=== PATIENT | male | born 1955 | race Caucasian/White ===

== ENCOUNTER 2017-10-25 14:21 | Outpatient (RCR) | payer MEDICARE ==
[2017-11-10] MEDS ORDERED: SACU1TAB PO (12:13)
[2017-11-10] MEDS ORDERED: UBID100C44 PO (12:13)
[2017-11-10] MEDS ORDERED: TRAM50TA2 PO (12:13)
[2017-11-10] MEDS ORDERED: OMG1KC PO (12:13)
[2017-11-10] MEDS ORDERED: ALLO100T PO (12:13)
[2017-11-10] MEDS ORDERED: NITR0.4T39 SL (12:13)
[2017-11-10] MEDS ORDERED: CARV3.122 PO (12:13)
[2017-11-10] MEDS ORDERED: DIAZ10TA3 PO (12:13)
[2017-11-10] MEDS ORDERED: AMIT150T PO (12:13)
[2017-11-10] MEDS ORDERED: MULT1TAB69 PO (12:13)
[2017-11-10] MEDS ORDERED: SIMV20TA3 PO (12:13)
[2017-11-10] MEDS ORDERED: DOCU100T7 PO (12:13)
[2017-11-10] MEDS ORDERED: CLOP75TA28 PO (12:13)
[2017-11-10] MEDS ORDERED: WARF-48 PO (12:13)
== END 2017-12-04 | disposition home or self-care (01) ==
LOC: ONC 14:21
PROVIDERS: ATTEND Radiology Radiation Oncology
DX: Z08 Encounter for follow-up examination after completed treatment for malignant neoplasm (principal); Z85.528 Personal history of other malignant neoplasm of kidney; Z85.830 Personal history of malignant neoplasm of bone; I25.10 Atherosclerotic heart disease of native coronary artery without angina pectoris; I15.0 Renovascular hypertension; M19.91 Primary osteoarthritis, unspecified site; Z86.718 Personal history of other venous thrombosis and embolism; Z79.01 Long term (current) use of anticoagulants
CPT/HCPCS: 76873; 99214

== ENCOUNTER 2017-11-10 12:31 | Outpatient (CLI) | payer MEDICARE ==
[~2017-11-10] VITALS: Ht 188 cm; Wt 115.2 kg
[~2017-11-10 12:31] MED LIST: ALLO100T PO; AMIT150T PO; CARV3.122 PO; CLOP75TA28 PO; DIAZ10TA3 PO; DOCU100T7 PO; MULT1TAB69 PO; NITR0.4T39 SL; OMG1KC PO; SACU1TAB PO; SIMV20TA3 PO; TRAM50TA2 PO; UBID100C44 PO; WARF-48 PO
== END 2017-11-10 13:53 ==
LOC: PREOP 12:31
PROVIDERS: ATTEND Urology
DX: Z01.818 Encounter for other preprocedural examination (principal); C61 Malignant neoplasm of prostate

== ENCOUNTER 2017-11-17 09:20 | Day surgery (SDC) | payer MEDICARE ==
[~2017-11-17] VITALS: Ht 188 cm; Wt 115.2 kg
[2017-11-17 09:35] VITALS: BP 121/83
[2017-11-17] MEDS ORDERED: LEVOFLOXACIN 500 MG/D5W 100 ML (PRE-MIX) IV ONE (09:45)
[2017-11-17 09:57] LABS: INR 1.1 (0.8-1.4); PROTHROMBIN TIME PATIENT 13.9 SEC (12.2-14.7)
[2017-11-17] MEDS ORDERED: MIDAZOLAM 2 MG/2 ML (VERSED) VIAL IVP ONE (10:15)
[2017-11-17] MEDS ORDERED: LEVOFLOXACIN 500 MG/100 ML IV 100 ML IV ONE (10:15)
[2017-11-17] MEDS ORDERED: MIDAZOLAM 2 MG/2 ML (VERSED) VIAL ONE (11:32)
[2017-11-17] MEDS ORDERED: fentaNYL INJECTION 100 MCG/2 ML AMP ONE (11:32)
--- NOTE | 2017-11-17 12:00 | Progress Note-Pre Operative ---
Pre-Operative Progress Note H&P Reviewed The H&P was reviewed, patient examined and no changes noted. Date Seen by Provider: Nov 17, 2017 Time Seen by Provider: 12:00 Date H&P Reviewed: Nov 17, 2017 Time H&P Reviewed: 12:00 Pre-Operative Diagnosis: Ca Prostate KENDY VERDUGO MD Nov 17, 2017 12:00 pm
--- NOTE | 2017-11-17 12:04 | Discharge Inst-Urology ---
Discharge Inst-Urology Discharge Medications New, Converted, or Re-newed RX: RX on Chart Patient Instructions/Follow Up Plan Patient to come to office Monday 9am to ABY blood Please make appointment to been seen in office in 2 weeks. Showers, no baths keep bowels soft and moving. IN 72 HRS, IF NO BLEEDING, MAY RESUME COUMADIN AND IF NO BLEEDING, 48 HRS LATER MAY RESUME PLAVIX Increase oral fluids for 48 hours and then as needed. Diet and Activity as tolerated. If questions or concerns contact your physician Or seek help at emergency department. KENDY VERDUGO MD Nov 17, 2017 12:04 pm
[2017-11-17] MEDS ORDERED: ONDANSETRON 4 MG/2 ML (SDV) Z0FRAN ONE (13:33)
[2017-11-17] MEDS ORDERED: LIDOCAINE PF 2% 5 ML (XYLOCAINE) VIAL ONE (13:33)
[2017-11-17] MEDS ORDERED: LIDOCAINE JELLY 2% (XYLOCAINE) 5 ML TUBE ONE (13:33)
[2017-11-17] MEDS ORDERED: SEVOFLURANE (ULTANE) 15 ML INHAL SOLN ONE (13:33)
[2017-11-17] MEDS ORDERED: ROCURONIUM 50 MG/5 ML (ZEMURON) VIAL IV ONE (13:33)
[2017-11-17] MEDS ORDERED: proPOfol 200 MG/20 ML (DIPRIVAN) VIAL IV ONE (13:33)
[2017-11-17] MEDS ORDERED: MEPERIDINE (DEMEROL) INJ 50 MG/ML IVP PRN (14:00)
[2017-11-17] MEDS ORDERED: ONDANSETRON 4 MG/2 ML (SDV) Z0FRAN IVP PRN (14:00)
[2017-11-17] MEDS: morphine INJ 10 MG/ML 1ML (SYR OR VIAL) IVP PRN ×2 (14:08→14:13)
[2017-11-17 14:50] VITALS: BP 120/77
[2017-11-17 14:51] VITALS: BP 120/77
[2017-11-17 15:20] VITALS: BP 113/75
[2017-11-17 16:00] VITALS: BP 111/74
--- NOTE | 2017-11-17 17:56 | Diagnostic Imaging Report ---
INDICATION: Brachytherapy. FINDINGS: A total of 18 seconds of fluoroscopy was utilized during brachytherapy performance. IMPRESSION: 18 seconds fluoroscopy utilized. Dictated by: Dictated on workstation # [id number]
== END 2017-11-17 17:20 | disposition home or self-care (01) ==
LOC: SDC 09:20
PROVIDERS: ATTEND Urology
DX: C61 Malignant neoplasm of prostate (principal); I25.10 Atherosclerotic heart disease of native coronary artery without angina pectoris; I11.0 Hypertensive heart disease with heart failure; I50.9 Heart failure, unspecified; M19.91 Primary osteoarthritis, unspecified site; E78.00 Pure hypercholesterolemia, unspecified; I25.2 Old myocardial infarction; Z86.718 Personal history of other venous thrombosis and embolism; Z79.01 Long term (current) use of anticoagulants; Z79.02 Long term (current) use of antithrombotics/antiplatelets; Z85.528 Personal history of other malignant neoplasm of kidney; Z95.5 Presence of coronary angioplasty implant and graft; Z87.891 Personal history of nicotine dependence
CPT/HCPCS: 36415; 76965; 77290; 77318; 77332; 77336; 77470; 77778; 85610; 87081

== ENCOUNTER 2017-12-15 10:10 | Outpatient (RCR) | payer MEDICARE | END 2018-03-15 | disposition home or self-care (01) | LOC: ONC 10:10 | PROVIDERS: ATTEND Radiology Radiation Oncology | DX: Z51.0 Encounter for antineoplastic radiation therapy (principal); C61 Malignant neoplasm of prostate; Z85.528 Personal history of other malignant neoplasm of kidney; Z85.830 Personal history of malignant neoplasm of bone; I25.10 Atherosclerotic heart disease of native coronary artery without angina pectoris; I15.0 Renovascular hypertension; M19.91 Primary osteoarthritis, unspecified site; Z86.718 Personal history of other venous thrombosis and embolism; Z79.01 Long term (current) use of anticoagulants | CPT/HCPCS: 77290; 77295; 77336 ==

== ENCOUNTER 2018-05-22 14:22 | Outpatient (RCR) | payer MEDICARE | END 2018-06-05 | disposition home or self-care (01) | LOC: ONC 14:22 | PROVIDERS: ATTEND Radiology Radiation Oncology | DX: C61 Malignant neoplasm of prostate (principal); Z85.528 Personal history of other malignant neoplasm of kidney; Z85.830 Personal history of malignant neoplasm of bone; I25.10 Atherosclerotic heart disease of native coronary artery without angina pectoris; I15.0 Renovascular hypertension; M19.91 Primary osteoarthritis, unspecified site; Z86.718 Personal history of other venous thrombosis and embolism; Z79.01 Long term (current) use of anticoagulants | CPT/HCPCS: 36415; 84153; 99213 ==

== ENCOUNTER → 2019-07-30 | Outpatient (CLI) | payer MEDICARE, OTHER ==
--- NOTE | 2019-07-30 12:51 | Diagnostic Imaging Report ---
INDICATION: Instability. Previous injury. COMPARISON: None. FINDINGS: Multiple radiographic views of the left knee were obtained. Postsurgical changes of the distal femur and proximal tibia are identified. Orthopedic sideplate and screws are seen traversing the lateral margins of the distal femur. Intramedullary vivien is also seen within the proximal tibia. Note is made of the proximal end of the vivien as well as the proximal anchor screw appear to have potentially migrated medially with portion of the screw extending into the medial soft tissues. There is gross deformity of the distal femur and proximal tibia and fibula consistent with old healed fractures. There is some soft tissue calcification, which may perhaps be on the basis of prior myositis ossificans. There is no convincing evidence of acute fracture. Note is made of hyperextended appearance of the knee joint with standing on the lateral view. Joint spaces are otherwise maintained. IMPRESSION: 1. Abnormal hyperflexed appearance to the knee on the lateral view with standing positioning. Findings are suspicious for underlying soft tissue injury. 2. Gross deformity of the left knee consistent with old fractures as well as postsurgical changes of prior ORIF. 3. No convincing evidence of acute fracture. Dictated by: Dictated on workstation # [id number]
== END ==
LOC: RAD FS 10:58
PROVIDERS: ATTEND Nurse Practitioner
DX: M17.12 Unilateral primary osteoarthritis, left knee (principal); M21.962 Unspecified acquired deformity of left lower leg
CPT/HCPCS: 73562

== ENCOUNTER 2020-06-14 11:06 | Inpatient (IN) | payer MEDICARE, OTHER ==
[~2020-06-14] VITALS: Ht 185.5 cm; Wt 104.1 kg
[~2020-06-14 11:06] MED LIST changes: +MULT-567 PO; -MULT1TAB69 PO; -SACU1TAB PO; +SACU1TAB2 PO; +SIMV20TA26 PO; -SIMV20TA3 PO; -TRAM50TA2 PO; +TRM50T PO
--- NOTE | 2020-06-14 11:28 | ED General ---
General Stated Complaint: BLOODY STOOL Source of Information: Patient, Old Records, RN/MD Exam Limitations: No Limitations History of Present Illness Date Seen by Provider: Jun 14, 2020 Time Seen by Provider: 11:05 Initial Comments This patient is a 64-year-old male presents to the emergency department with complaint of GI bleed. Patient states she's had black tarry stools for about 1 week. Patient was seen by his PCP had normal lab values. Patient does take Coumadin home and states that he doesn't INR check on his home hand-held device weekly in 5 days ago his Coumadin INR level was 2.4. Patient states he is continue to take his medications. Patient states of black tarry stool has increased but he has no complaints of lightheadedness or shortness of breath or any signs of low blood pressure. Blood pressure on arrival was 143 systolic. Patient does have a remote history of renal cell carcinoma for which he had his left kidney removed. 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 Patient does walk with a brace on his left leg and crutches. Patient also states he does have a history of state issues to where he had pellets placed in his prostate. We will do medical evaluation treatment is needed. Timing/Duration: 5-6 Days Severity: Moderate Allergies and Home Medications Allergies Coded Allergies: No Known Drug Allergies (Unverified , 11/10/17) Home Medications Allopurinol 100 Mg Tablet, 100 MG PO DAILY, (Reported) Amitriptyline HCl 150 Mg Tablet, 150 MG PO HS, (Reported) Carvedilol 3.125 Mg Tablet, 3.125 MG PO BID, (Reported) Diazepam 10 Mg Tablet, 10 MG PO HS, (Reported) Docusate Sodium 100 Mg Tablet, 100 MG PO BID, (Reported) Multivitamin 1 Each Tablet, 1 EACH PO DAILY, (Reported) Nitroglycerin 0.4 Mg Tab.subl, 0.4 MG SL UD PRN for CHEST PAIN, (Reported) [place] 3 Polyunsat Fatty Acids 1,000 Mg Cap, 1,000 MG PO BID, (Reported) Sacubitril/Valsartan 1 Each Tablet, 1 EACH PO BID, (Reported) Simvastatin 20 Mg Tablet, 20 MG PO HS, (Reported) Tramadol HCl 50 Mg Tablet, 50 MG PO TID PRN for PAIN-MILD TO MODERATE, (Reported) Ubidecarenone 100 Mg Capsule, 100 MG PO DAILY@1200, (Reported) Patient Home Medication List Home Medication List Reviewed: Yes Review of Systems Review of Systems Constitutional: see HPI Respiratory: No no symptoms reported, No see HPI, No cough, No dyspnea on exertion, No hemoptysis, No orthopnea, No phlegm, No short of breath, No strid or, No wheezing, No other Cardiovascular: No no symptoms reported, No see HPI, No chest pain, No edema, No Hx of Intervention, No palpitations, No syncope, No vascular heart diseas, No other Gastrointestinal: No RUQ, No LUQ, No RLQ, No LLQ, No no symptoms reported; see HPI; No abdominal pain, No constipation, No diarrhea, No dysphagia, No hematemesis, No heartburn, No jaundice, No loss of appetite; melena; No nausea, No vomiting; other (black tarry stools) Genitourinary: No no symptoms reported, No see HPI, No decreased output, No discharge, No dysuria, No frequency, No hematuria, No hesitancy, No incontinence, No nocturia, No pain, No other Musculoskeletal: No no symptoms reported, No see HPI, No back pain, No gout, No joint pain, No joint swelling, No muscle pain, No muscle stiffness, No muscle cramps, No muscle twitching, No muscle weakness, No neck pain, No other Skin: No no symptoms reported, No see HPI, No change in color, No change in hair/nails, No dryness, No hx of skin cancer, No lesions, No lumps, No pruritus, No rash, No other All Other Systems Reviewed Negative Unless Noted: Yes Past Txyieuc-Xgiyqx-Mqfdba Hx Patient Social History Alcohol Beverage of Choice: Beer Former Smoker, Quit: Nov 10, 1998 Recent Foreign Travel: No Contact w/Someone Who Travel: No Recent Hopitalizations: No Immunizations Up To Date Tetanus Booster (TDap): Unknown PED Vaccines UTD: No Date of Influenza Vaccine: Aug 30, 2017 Seasonal Allergies Seasonal Allergies: No Past Medical History Coronary Stent Coronary Artery Disease, High Cholesterol, Hypertension Reproductive Disorders: No Prostate Problems Polyps Arthritis, Fractures Prostate, Kidney What Type of Treatment Did You: Surgical Intervention Physical Exam Vital Signs Vital Signs - First Documented 06/14/20 11:10 Temp 36.9 Pulse 122 Resp 18 B/P (MAP) 143/88 (106) Pulse Ox 98 O2 Delivery Room Air Capillary Refill : Height, Weight, BMI Height: 6'2.00" Weight: 254lbs. 0.0oz. 115.375227xt; 32.6 BMI Method: General Appearance: No Apparent Distress, WD/WN Respiratory: Chest Non Tender, Lungs Clear, Normal Breath Sounds, No Accessory Muscle Use, No Respiratory Distress Cardiovascular: Regular Rate, Rhythm, No Edema, No Gallop, No JVD, No Murmur, Normal Peripheral Pulses Gastrointestinal: Normal Bowel Sounds, No Organomegaly, No Pulsatile Mass, Non Tender, Soft Rectal: Black Stool, Heme Positive Stool Back: Normal Inspection, No CVA Tenderness, No Vertebral Tenderness Extremity: Normal Capillary Refill, Normal Inspection, Normal Range of Motion, Non Tender, No Calf Tenderness, No Pedal Edema Skin: Normal Color, Warm/Dry Progress/Results/Core Measures Suspected Sepsis SIRS Temperature: Pulse: Respiratory Rate: Laboratory Tests 06/14/20 11:30: White Blood Count 9.2 Blood Pressure / Mean: Laboratory Tests 06/14/20 11:30: Creatinine 0.99, INR Comment 4.2H, Platelet Count 199, Total Bilirubin 0.2 Results/Orders Lab Results Laboratory Tests Test 06/14/20 11:30 06/14/20 11:46 Range/Units White Blood Count 9.2 4.3-11.0 10^3/uL Red Blood Count 3.56 L 4.35-5.85 10^6/uL Hemoglobin 10.7 L 13.3-17.7 G/DL Hematocrit 31 L 40-54 % Mean Corpuscular Volume 88 80-99 FL Mean Corpuscular Hemoglobin 30 25-34 PG Mean Corpuscular Hemoglobin Concent 34 32-36 G/DL Red Cell Distribution Width 14.7 H 10.0-14.5 % Platelet Count 199 130-400 10^3/uL Mean Platelet Volume 9.5 7.4-10.4 FL Neutrophils (%) (Auto) 73 42-75 % Lymphocytes (%) (Auto) 17 12-44 % Monocytes (%) (Auto) 6 0-12 % Eosinophils (%) (Auto) 3 0-10 % Basophils (%) (Auto) 1 0-10 % Neutrophils # (Auto) 6.7 1.8-7.8 X 10^3 Lymphocytes # (Auto) 1.6 1.0-4.0 X 10^3 Monocytes # (Auto) 0.6 0.0-1.0 X 10^3 Eosinophils # (Auto) 0.2 0.0-0.3 10^3/uL Basophils # (Auto) 0.1 0.0-0.1 10^3/uL Prothrombin Time 40.7 H 12.2-14.7 SEC INR Comment 4.2 H 0.8-1.4 Sodium Level 138 135-145 MMOL/L Potassium Level 3.8 3.6-5.0 MMOL/L Chloride Level 105 98-107 MMOL/L Carbon Dioxide Level 23 21-32 MMOL/L Anion Gap 10 5-14 MMOL/L Blood Urea Nitrogen 29 H 7-18 MG/DL Creatinine 0.99 0.60-1.30 MG/DL Estimat Glomerular Filtration Rate > 60 BUN/Creatinine Ratio 29 Glucose Level 118 H 70-105 MG/DL Calcium Level 8.5 8.5-10.1 MG/DL Corrected Calcium 8.9 8.5-10.1 MG/DL Total Bilirubin 0.2 0.1-1.0 MG/DL Aspartate Amino Transf (AST/SGOT) 17 5-34 U/L Alanine Aminotransferase (ALT/SGPT) 11 0-55 U/L Alkaline Phosphatase 60 40-136 U/L Total Protein 5.7 L 6.4-8.2 GM/DL Albumin 3.5 3.2-4.5 GM/DL Urine Color YELLOW Urine Clarity CLEAR Urine pH 6.0 5-9 Urine Specific Star 1.010 L 1.016-1.022 Urine Protein NEGATIVE NEGATIVE Urine Glucose (UA) NEGATIVE NEGATIVE Urine Ketones NEGATIVE NEGATIVE Urine Nitrite NEGATIVE NEGATIVE Urine Bilirubin NEGATIVE NEGATIVE Urine Urobilinogen 0.2 < = 1.0 MG/DL Urine Leukocyte Esterase NEGATIVE NEGATIVE Urine RBC (Auto) NEGATIVE NEGATIVE Urine RBC NONE /HPF Urine WBC NONE /HPF Urine Squamous Epithelial Cells RARE /HPF Urine Renal Epithelial Cells NONE /HPF Urine Crystals NONE /LPF Urine Bacteria NEGATIVE /HPF Urine Casts NONE /LPF Urine Mucus NEGATIVE /LPF Urine Culture Indicated NO My Orders Orders - KAMRYN GOLDMAN MD Ed Iv/Invasive Line Start (06/14/20 11:22) Cbc With Automated Diff (06/14/20 11:22) Comprehensive Metabolic Panel (06/14/20 11:22) Urinalysis (06/14/20 11:22) Protime With Inr (06/14/20 11:22) Occult Blood Stool (06/14/20 11:22) Ekg Tracing (06/14/20 11:22) Acute Abd Series (06/14/20 11:22) Ns Iv 1000 Ml (Sodium Chloride 0.9%) (06/14/20 12:00) Phytonadione Oral Solution (Mephyton Ora (06/14/20 12:15) Iohexol Injection (Omnipaque 350 Mg/Ml 1 (06/14/20 12:15) Received Contrast (Hold Metformin- Contr (06/14/20 12:15) Sodium Chloride Flush (Catheter Flush Sy (06/14/20 12:15) Ns (Ivpb) (Sodium Chloride 0.9% Ivpb Bag (06/14/20 12:15) Ct Abdomen/Pelvis Wo (06/14/20 11:55) Medications Given in ED Current Medications Medications Dose Ordered Sig/Lily Route Start Time Stop Time Status Last Admin Dose Admin Phytonadione 2.5 mg ONCE ONCE PO 06/14/20 12:15 06/14/20 12:16 DC 06/14/20 12:43 2.5 MG Vital Signs/I&O 06/14/20 11:10 Temp 36.9 Pulse 122 Resp 18 B/P (MAP) 143/88 (106) Pulse Ox 98 O2 Delivery Room Air Capillary Refill : Progress Note : Time: 13:[address] scan shows the patient does have left lower side diverticulitis. Vital signs perforation. Patient was given vitamin K 2.5 mg by mouth. Patient also has some constipation. Patient's INR was 4.2 on arrival. I did discuss with Dr. Clark about transfer to [facility]. She is accepted this patient for transfer. We did review the patient's chart and imaging. Patient will be given no antibiotics at this time for diverticulitis Dr. Clark will evaluate upon arrival. ECG Initial ECG Impression Date: Jun 14, 2020 Initial ECG Impression Time: 11:29 Initial ECG Rate: 97 Initial ECG Rhythm: Normal Sinus Initial ECG Intervals: Normal Initial ECG Impression: Nonspecific Changes Comment Sinus rhythm with a heart rate of 97. Nonspecific EKG changes. Departure Impression Primary Impression: GIB (gastrointestinal bleeding) Additional Impressions: Anticoagulated on Coumadin Diverticulitis of intestine Constipation Disposition: 02 XFER SHT-TRM HOSP Condition: Stable Transfer Transfer Reason: Exceeds level of care Time Spoke to Accepting Phy: 13:33 Transfer Progress Notes I did discuss with Dr. Clark about transfer to [facility]. She is accepted this patient for transfer. We did review the patient's chart and imaging. Patient will be given no antibiotics at this time for diverticulitis Dr. Clark will evaluate upon arrival. Transfer Time: 13:33 Transfer Facility: [facility] Departure-Patient Inst. Decision time for Depature: 13:33 Referrals: ELICIA MORALES MD (PCP/Family) Primary Care Physician KAMRYN GOLDMAN MD Jun 14, 2020 11:28
[2020-06-14 11:35] LABS: HEMATOCRIT 31 % (40-54); HEMOGLOBIN 10.7 G/DL (13.3-17.7); MEAN CORPUSCULAR HEMOGLOBIN 30 PG (25-34); MEAN CORPUSCULAR HGB CONC 34 G/DL (32-36); MEAN CORPUSCULAR VOLUME 88 FL (80-99); MEAN PLATELET VOLUME 9.5 FL (7.4-10.4); PLATELET COUNT 199 10^3/uL (130-400); RED CELL DISTRIBUTION WIDTH 14.7 % (10.0-14.5); WHITE BLOOD COUNT 9.2 10^3/uL (4.3-11.0)
[2020-06-14 11:36] LABS: BASOPHILS # (AUTO) 0.1 10^3/uL (0.0-0.1); BASOPHILS % (AUTO) 1 % (0-10); EOSINOPHILS # (AUTO) 0.2 10^3/uL (0.0-0.3); EOSINOPHILS % (AUTO) 3 % (0-10); LYMPHOCYTES # (AUTO) 1.6 X 10^3 (1.0-4.0); LYMPHOCYTES % (AUTO) 17 % (12-44); MONOCYTES # (AUTO) 0.6 X 10^3 (0.0-1.0); MONOCYTES % (AUTO) 6 % (0-12); NEUTROPHILS # (AUTO) 6.7 X 10^3 (1.8-7.8); NEUTROPHILS % (AUTO) 73 % (42-75)
[2020-06-14 11:48] LABS: INR 4.2 (0.8-1.4); PROTHROMBIN TIME PATIENT 40.7 SEC (12.2-14.7)
[2020-06-14 12:00] LABS: CHLORIDE 105 MMOL/L (98-107); POTASSIUM 3.8 MMOL/L (3.6-5.0); SODIUM 138 MMOL/L (135-145)
[2020-06-14 12:01] LABS: ALANINE AMINOTRANSFERASE 11 U/L (0-55); ALBUMIN 3.5 GM/DL (3.2-4.5); ALKALINE PHOSPHATASE 60 U/L (40-136); BILIRUBIN,TOTAL 0.2 MG/DL (0.1-1.0); BUN/CREATININE RATIO 29; CALCIUM 8.5 MG/DL (8.5-10.1); CARBON DIOXIDE 23 MMOL/L (21-32); CREATININE SERUM 0.99 MG/DL (0.60-1.30); GFR ESTIMATED > 60; GLUCOSE 118 MG/DL (70-105); TOTAL PROTEIN 5.7 GM/DL (6.4-8.2)
[2020-06-14 12:01] LABS: CLARITY,URINE CLEAR; COLOR,URINE YELLOW
[2020-06-14 12:02] LABS: BACTERIA,URINE NEGATIVE /HPF; BILIRUBIN,URINE NEGATIVE (NEGATIVE); GLUCOSE, URINE (UA) NEGATIVE (NEGATIVE); KETONES,URINE NEGATIVE (NEGATIVE); LEUKOCYTE ESTERASE ,URINE NEGATIVE (NEGATIVE); NITRITE,URINE NEGATIVE (NEGATIVE); PROTEIN,URINE NEGATIVE (NEGATIVE); SQUAMOUS EPITHELIAL CELL,UR RARE /HPF
[2020-06-14] MEDS ORDERED: VITAMIN K 1 MG/ML ORAL SOLN 1 ML SYRINGE PO ONE (12:15)
[2020-06-14] MEDS ORDERED: IOHEXOL 350 MG/ML 100 ML (OMNIPAQUE 350) VIAL IV ONE (12:15)
[2020-06-14] MEDS ORDERED: HOLD METFORMIN - RECEIVED CONTRAST 20 ML VIAL IV SCH (12:15)
[2020-06-14] MEDS ORDERED: NS 100 ML (IVPB) BAG IV ONE (12:15)
[2020-06-14] MEDS ORDERED: CATHETER FLUSH 10 ML SYR IV PRN (12:15)
--- NOTE | 2020-06-14 12:17 | Diagnostic Imaging Report ---
Indication: Abdominal pain There are no prior plain film examinations available for comparison. The common erect PA chest shows heart size to be within normal limits. The lungs are generally clear. There is minimal scar formation in the left lung base. There is no sign of a pneumoperitoneum. Supine and erect views of the abdomen were obtained. There is gas in both the large and small bowel in a nonspecific fashion. There is no evidence of bowel obstruction. There does appear to be a considerable amount of fecal material in the ascending and transverse colon and to a lesser extent the descending colon. There is no mass or organomegaly appreciated. There are surgical clips about the lumbar spine and there is a vena cava filter in place. There are also extensive postsurgical changes involving the left hip and there is a total hip prosthesis in place. There is also irregularity at the lateral aspect of the left ilium. Most likely this is a sequela of prior surgery. Numerous seed implants are also seen in the region of the prostate gland. Impression: 1. The bowel gas pattern is nonspecific. There is no acute abnormality identified. 2. There is a considerable amount of fecal material in the ascending and transverse colon and to a lesser extent the descending colon. 3. There are postsurgical changes as described above. Dictated by: Dictated on workstation # [id number]
[2020-06-14] MEDS: NS IV 1000 ML 1,000 ML IV SCH ×5 (12:43→23:18)
--- NOTE | 2020-06-14 13:12 | Diagnostic Imaging Report ---
EXAM: CT Abdomen and Pelvis Without Intravenous Contrast. CLINICAL HISTORY: Bloody stools. EXAM DATE/TIME: 06/14/2020 COMPARISON: None FINDINGS: Artifacts: None Lower thorax: Clear ABDOMEN: Liver: Normal Gallbladder and bile ducts: There are several small gallstones present. Gallbladder is not distended. Bile ducts are not dilated. Pancreas: Normal Spleen: Normal Adrenals: Normal Kidneys and ureters: The right kidney appears normal. Left kidney is absent. PELVIS: Bladder: Bladder appears normal Reproductive: Prostate is not enlarged. There are radium implants. Appendix: Normal Bowel: There is thickening of the sigmoid colon bowel wall with diverticula and mesenteric edema consistent with focal diverticulitis in the proximal sigmoid colon. ABDOMEN & PELVIS: Stomach and bowel: Normal Peritoneum: No free air or free fluid. Lymph nodes: No adenopathy of pathologic size. Vasculature: There is IVC filter appearing in good orientation. The aorta is atherosclerotic without aneurysm. Bones: No bony abnormalities. IMPRESSION: 1. Findings consistent with focal diverticulitis proximal sigmoid colon. No evidence of abscess, free air or free fluid. 2. Cholelithiasis without acute cholecystitis. Dictated by: Dictated on workstation # [id number]
--- NOTE | 2020-06-14 14:09 | NUR ---
RECEIVED REPORT ON PT FROM [facility]
--- NOTE | 2020-06-14 14:50 | NUR ---
RECEIVED PT IN ROOM FROM EMS
[2020-06-14 15:30] VITALS: BP 103/58
[2020-06-14 16:32] VITALS: BP 122/71
--- NOTE | 2020-06-14 16:32 | NUR ---
CALLED WITH UPDATE ON PT'S BLOOD PRESSURE 84/69. NO NEW ORDERS JUST MAKE SURE SHE IS OK. I LET HER KNOW SHE WAS LIGHT HEADED . SHE ASKED ME TO LOWER THE HEAD OF THE BED AND HOW MUCH URINE SHE PUT OUT. Addendum: 06/14/20 at 1635 by CHILO HUERTA RN WRONG PT
[2020-06-14 16:33] VITALS: BP 122/71
[2020-06-14] MEDS: CARVEDILOL 3.125 MG (COREG) TABLET PO SCH (18:10)
[2020-06-14 20:00] VITALS: BP 116/79
[2020-06-14] MEDS: DIAZEPAM 5 MG (VALIUM) TABLET PO PRN (21:08)
[2020-06-14] MEDS: SIMvastatin 20 MG (ZOCOR) TAB PO SCH (21:08)
[2020-06-14] MEDS: AMITRIPTYLINE 150 MG (ELAVIL) TABLET PO SCH (21:08)
[2020-06-14] MEDS: SACUBITRIL/VALSARTAN 24/26 MG (ENTRESTO) TABLET PO SCH (21:08)
[2020-06-14 23:18] VITALS: BP 98/54
[2020-06-15 03:13] VITALS: BP 93/53
[2020-06-15 05:40] LABS: BASOPHILS # (AUTO) 0.1 10^3/uL (0.0-0.1); BASOPHILS % (AUTO) 1 % (0-10); EOSINOPHILS # (AUTO) 0.3 10^3/uL (0.0-0.3); EOSINOPHILS % (AUTO) 5 % (0-10); HEMATOCRIT 25 % (40-54); HEMOGLOBIN 8.1 G/DL (13.3-17.7); LYMPHOCYTES # (AUTO) 1.5 X 10^3 (1.0-4.0); LYMPHOCYTES % (AUTO) 28 % (12-44); MEAN CORPUSCULAR HEMOGLOBIN 29 PG (25-34); MEAN CORPUSCULAR HGB CONC 33 G/DL (32-36); MEAN CORPUSCULAR VOLUME 89 FL (80-99); MONOCYTES # (AUTO) 0.6 X 10^3 (0.0-1.0); MONOCYTES % (AUTO) 12 % (0-12); NEUTROPHILS % (AUTO) 55 % (42-75); PLATELET COUNT 178 10^3/uL (130-400); RED CELL DISTRIBUTION WIDTH 14.7 % (10.0-14.5); WHITE BLOOD COUNT 5.5 10^3/uL (4.3-11.0)
[2020-06-15] MEDS: NS IV 1000 ML 1,000 ML IV SCH ×3 (05:43→18:48)
[2020-06-15 05:51] LABS: PROTHROMBIN TIME PATIENT 31.1 SEC (12.2-14.7)
[2020-06-15 05:57] LABS: ALBUMIN 2.8 GM/DL (3.2-4.5)
[2020-06-15 05:58] LABS: CHLORIDE 115 MMOL/L (98-107); POTASSIUM 3.9 MMOL/L (3.6-5.0); SODIUM 143 MMOL/L (135-145)
[2020-06-15 05:59] LABS: CALCIUM 7.7 MG/DL (8.5-10.1)
[2020-06-15 06:00] LABS: GLUCOSE 98 MG/DL (70-105); TOTAL PROTEIN 4.7 GM/DL (6.4-8.2)
[2020-06-15 06:01] LABS: CARBON DIOXIDE 24 MMOL/L (21-32)
[2020-06-15 06:02] LABS: BILIRUBIN,TOTAL 0.5 MG/DL (0.1-1.0)
[2020-06-15 06:03] LABS: ALKALINE PHOSPHATASE 50 U/L (40-136)
[2020-06-15 06:04] LABS: CREATININE SERUM 0.82 MG/DL (0.60-1.30); GFR ESTIMATED > 60
[2020-06-15 06:05] LABS: BUN/CREATININE RATIO 28
[2020-06-15 06:06] LABS: ALANINE AMINOTRANSFERASE 10 U/L (0-55)
[2020-06-15 08:00] VITALS: BP 98/53
[2020-06-15] MEDS: CARVEDILOL 3.125 MG (COREG) TABLET PO SCH ×2 (08:45→16:54)
--- NOTE | 2020-06-15 08:45 | NUR ---
patient b/p this a.m. was this RN will hold a.m. b/p medications and will notify his PCP on his case.
[2020-06-15] MEDS: SACUBITRIL/VALSARTAN 24/26 MG (ENTRESTO) TABLET PO SCH ×2 (08:47→20:44)
[2020-06-15] MEDS: ALLOPURINOL 100 MG (ZYLOPRIM) TAB PO SCH (08:48)
--- NOTE | 2020-06-15 09:42 | History & Physical-Hospitalist ---
PAL PRYOR MED STUDENT 06/15/20 0942: History of Present Illness HPI/Chief Complaint 64 yo male presents with a chief complaint of bloody diarrhea. pt stated that diarrhea is both black and red. onset of symptoms was last 06/07/2020.pt denies any pain. pt stated that the diarrhea has gotten worse over the past week and has increased in frequency. pt stated nothing makes it better and nothing makes it worse. pt stated he tried adding yogurt and probiotics to his diet, neither helped. past medical history- hypertension, diverticulitis, three previous myocardial infarctions, heart failure,renal cell carcinoma, gout, dvt, L leg neuropathy. previous colonoscopy around 2017 past surgical history- renal cell carcinoma 1998, left complete nephrectomy 1998, total L hip replacement 1999, prostatic radium implants 2017, three cardiac stents allergies- no known drug allergies medications- allopurinol 100 mg daily, amitriptyline 150 mg hs daily, sacubitril/valsartan 24/26 mg bid, simvastatin 20 mg hs daily, diazepam 5 mg hs prn, carvedilol 3.125 mg bid, tramadol 50 mg tid prn, sodium chloride 150 mls/hr, phytonadione 2.5mg once. social history- [place], currently lives independently with . family history- mother- renal cell carcinoma, diverticulitis, dementia, currently 89 yo - father- copd, smoker, at 88 yo ROS heent- no fever, chills, congestion abdominal- bloody diarrhea, denies any nausea or vomiting pulmonary- denies shortness of breath cardiac- denies chest pain Exam heent- no cervical lymphadenopathy abdominal- no bruising or scarring, normal bowel sounds, normal to percussion, no masses noted on palpation pulmonary- normal breath sounds cardiac- normal rate and rhythm labs/imaging abdominal.pelvic ct- no left kidney, prostatic radium implants, focal divert iculitis, no abscesses, no free air or free fluid, cholelithiasis noted acute abdominal series- vena cava filter in place, increased fecal material in ascending and transverse colon. assessment- lower gastrointestinal bleed, fecal impaction, hypertension, diverticulitis, gout, dvt, heart failure, cholelithiasis plan- consult with surgery, continue IV fluids, continue hold of antihypertensive medications Date Seen 06/15/20 Attending Physician Susie Clark MD PCP Cain Mijares MD Referring Physician Date of Admission Jun 14, 2020 at 14:50 Home Medications & Allergies Home Medications Reviewed patient Home Medication Reconciliation performed by pharmacy medication reconciliations audiology technician and/or nursing. Patients Allergies have been reviewed. Allergies Allergies Coded Allergies No Known Drug Allergies (Unverified11/10/17) Past Gmfzntv-Ikvgbg-Sztvyc Hx Patient Social History Marrital Status: Employed/Student: retired Alcohol Use: Denies Use Number of Drinks Today: AA Alcohol Beverage of Choice: Beer Recreational Drug Use: No Smoking Status: Former Smoker Former Smoker, Quit: Nov 10, 1998 2nd Hand Smoke Exposure: No Recent Foreign Travel: No Contact w/other who traveled: No Recent Hopitalizations: No Recent Infectious Disease Expo: No Immunizations Up To Date Tetanus Booster (TDap): Unknown Pediatric: No Date of Pneumonia Vaccine: Jun 14, 2017 Date of Influenza Vaccine: Aug 30, 2017 Seasonal Allergies Seasonal Allergies: No Past Medical History Surgeries: Coronary Stent Cardiac: Coronary Artery Disease, Heart Attack, High Cholesterol, Hypertension Neurological: Neuropathy Reproductive: No Genitourinary: Prostate Problems Gastrointestinal: Hemorrhoids, Polyps Musculoskeletal: Arthritis, Fractures Cancer: Prostate, Kidney What Type of Treatment Did You: Radiation, Surgical Intervention History of Blood Disorders: Yes (hx DVT) Family History Copd FH: COPD (chronic obstructive pulmonary disease) 19 FATHER FH: diverticulitis FH: renal cell carcinoma 19 MOTHER Physical Exam Physical Exam Vital Signs Vital Signs - First Documented 06/14/20 11:10 Temp 36.9 Pulse 122 Resp 18 B/P (MAP) 143/88 (106) Pulse Ox 98 O2 Delivery Room Air Capillary Refill : Less Than 3 SecondsLess Than 3 Seconds Height, Weight, BMI Height: 6'2.00" Weight: 254lbs. 0.0oz. 115.696028wn; 30.25 BMI Method: Results Results/Procedures Labs Laboratory Tests 06/14/20 11:30 06/15/20 05:20 Patient resulted labs reviewed. Clinical Quality Measures DVT/VTE Risk/Contraindication: Risk Factor Score Per Nursin RFS Level Per Nursing on Admit: 3=High NITA SHAW DO 06/15/20 1252: History of Present Illness HPI/Chief Complaint CC: GI bleed HPI: This is a 64yoWM with a history of renal cell carcinoma 1998 resulting in a a left nephrectomy who presented with melenic stools, Hgb has remained stable but he does have a history of colon polyps and diverticulosis, making it suspicious for diverticular bleed. Dr. Sarmiento has been consulted and will likely perform scopes. He remains stable. Will hold his BP medication due to hypotension. Source: patient Exam Limitations: no limitations Date Seen 06/15/20 Time Seen by a Provider: 10:30 Past Wepuhdy-Syyajf-Ulayuo Hx Past Med/Social Hx: Reviewed Nursing Past Med/Soc Hx, Reviewed and Corrections made Patient Social History Marrital Status: Employed/Student: retired Alcohol Use: Denies Use Past Medical History Surgeries: Renal Cardiac: High Cholesterol, Hypertension Gastrointestinal: Diverticulosis Musculoskeletal: Arthritis Family History Copd FH: COPD (chronic obstructive pulmonary disease) 19 FATHER FH: diverticulitis FH: renal cell carcinoma 19 MOTHER Review of Systems Constitutional: see HPI Gastrointestinal: melena Physical Exam Physical Exam General Appearance: No Apparent Distress, Chronically ill Respiratory: Chest Non Tender, Lungs Clear, Normal Breath Sounds, No Accessory Muscle Use, No Respiratory Distress Cardiovascular: Regular Rate, Rhythm, No Edema, No Gallop, No JVD, No Murmur, Normal Peripheral Pulses Neurologic/Psychiatric: Alert, Oriented x3, No Motor/Sensory Deficits, Normal Mood/Affect Assessment/Plan Admission Diagnosis Assessment: Gi bleed likely lower Anemia History of renal cell carcinoma Plan: General surgery consultation Monitor Hemiglobin Admission Status: Inpatient Order (span 2 midnights) Reason for Inpatient Admission: gi bleed Assessment and Plan Assessment: Gi bleed likely lower Anemia History of renal cell carcinoma Plan: General surgery consultation Monitor hemiglobin Diagnosis/Problems Diagnosis/Problems (1) GI bleed Supervisory-Addendum Brief Verification & Attestation Participated in pt care: history, MDM, physical Personally performed: exam, history, MDM, supervision of care Care discussed with: Medical Student Procedures: n/a Results interpretation: Verified all documentation Verification and Attestation of Medical Student E/M Service A medical student performed and documented this service in my presence. I reviewed and verified all information documented by the medical student and made modifications to such information, when appropriate. I personally performed the physical exam and medical decision making. Nita Shaw, Jun 15, 2020,21:00 PAL [employer]YOR MED STUDENT Jun 15, 2020 09:42 NITA SHAW DO Jun 15, 2020 12:52
[2020-06-15 12:00] VITALS: BP 96/56
[2020-06-15] MEDS ORDERED: KETO120S13 TOP (12:57)
[2020-06-15] MEDS ORDERED: KRIL1CAP22 PO (12:57)
[2020-06-15] MEDS ORDERED: CLOP75TA28 PO (12:57)
[2020-06-15] MEDS ORDERED: TMSL.4C PO (12:57)
[2020-06-15] MEDS ORDERED: CARV12.53 PO (12:57)
[2020-06-15] MEDS ORDERED: WARF-48 PO (12:57)
[2020-06-15] MEDS ORDERED: AMIT100T2 PO (12:57)
--- NOTE | 2020-06-15 13:00 | NUR ---
SPOKE WITH THE PT AND WENT THRU THE EXT MED HISTORY TO COMPLETE THE MED REC PT WAS ABLE TO TELL ME HOW/WHEN HE TAKES EACH MED MEDICATIONS WERE REVIEWED OVER THE WEEKEND BEFORE A NURSE COULD GO OVER THE HOME MEDS WITH THE PT. I UPDATED THE FOLLOWING MEDICATIONS DUE TO STRENGTH BEING INCORRECT: COREG 3.125MG BID WAS CONTINUED BUT PT IS ON 6.25MG BID AMITRIPTYLINE 150MG WAS CONTINUED HOWEVER THE PT IS TAKING 50MG HS PLAVIX 75MG, FLOMAX 0.4MG AND WARFARIN 7.5MG ARE ALL MEDICATIONS THE PT WAS TAKING PRIOR TO ADMISSION BUT WERE NOT INCLUDED ON THE MED REC WHEN IT WAS REVIEWED. I HAVE INCLUDED THESE MEDS ON THE MED REC AMITRIPTYLINE 100MG: THE DIRECTIONS ON THE EXT MED HISTORY SHOW 1 TAB DAILY HOWEVER THE PT IS ONLY TAKING TAB HS OTC MEDS: [employer] STEPHANIE RED COQ10
--- NOTE | 2020-06-15 15:57 | Consultation - Surgery ---
ARIAS KINGSTON MED STUDENT 06/15/20 1557: History of Present Illness History of Present Illness Patient Consulted On(promise/time) 06/15/20 15:50 Date Seen by Provider: Jun 15, 2020 Time Seen by Provider: 12:30 Reason for Visit: Hematochezia, melena History of Present Illness 64 yo male presents with a 9 day history of "bloody diarrhea" which began last Monday. He reports hematochezia for the first two days, and he states that later the stools became "black and tarry" and have remained this way. He was admitted to the ED yesterday after 30 episodes of diarrhea with a "foul odor" and continued bleeding. He denies any accompanying abdominal pain, N/V, fever and chills. He also continues to be hypotensive (96/56) and anemic (Hgb 8.1). Allergies and Home Medications Allergies Coded Allergies: No Known Drug Allergies (Unverified , 11/10/17) Home Medications Allopurinol 100 Mg Tablet, 100 MG PO DAILY, (Reported) Amitriptyline HCl 100 Mg Tablet, 50 MG PO HS, (Reported) TAKES OF A 100MG Carvedilol 12.5 Mg Tablet, 6.25 MG PO BID, (Reported) TAKES OF A 12.5MG TAB Clopidogrel Bisulfate 75 Mg Tablet, 75 MG PO DAILY, (Reported) Diazepam 10 Mg Tablet, 10 MG PO HS, (Reported) Ketoconazole 120 Ml Shampoo, 1 APPLIC TOP 3-4 TIMES WEEKLY PRN for SCALP RASH, (Reported) Krill/Om-3/Dha/Epa/Phospho/Ast 1 Each Capsule, 1 EACH PO DAILY, (Reported) Multivitamin 1 Each Tablet, 1 EACH PO DAILY, (Reported) Nitroglycerin 0.4 Mg Tab.subl, 0.4 MG SL UD PRN for CHEST PAIN, (Reported) Sacubitril/Valsartan 1 Each Tablet, 1 EACH PO BID, (Reported) Simvastatin 20 Mg Tablet, 20 MG PO HS, (Reported) Tamsulosin HCl 0.4 Mg Cap, 0.4 MG PO 1200, (Reported) Ubidecarenone 100 Mg Capsule, 100 MG PO DAILY@1200, (Reported) Warfarin Sodium 5 Mg Tablet, 7.5 MG PO 1200, (Reported) TAKES 1 & OF A 5MG TAB Past Nopjriw-Mwhsop-Wwpowg Hx Patient Social History Alcohol Use: Denies Use Number of Drinks Today: AA Recreational Drug Use: No Smoking Status: Former Smoker Former Smoker, Quit: Nov 10, 1998 2nd Hand Smoke Exposure: No Recent Foreign Travel: No Contact w/Someone Who Travel: No Recent Infectious Disease Expo: No Recent Hopitalizations: No Immunizations Up To Date Tetanus Booster (TDap): Unknown PED Vaccines UTD: No Date of Pneumonia Vaccine: Jun 14, 2017 Date of Influenza Vaccine: Aug 30, 2017 Seasonal Allergies Seasonal Allergies: No Surgeries History of Surgeries: Yes (L kidney removed, L hip replaced, L femur ORIF, L ankle, triston filter,) Surgeries: Joint Replacement (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), Renal (left kidney removed secondary to RCC 21 years ago) Respiratory History of Respiratory Disorde: No Cardiovascular History of Cardiac Disorders: Yes (stents, CHF) Cardiac Disorders: Coronary Artery Disease, Heart Attack (3 SC most recent 2008), High Cholesterol, Hypertension Neurological History of Neurological Disord: Yes Neurological Disorders: Neuropathy (neuropathy of left leg) Reproductive System Hx Reproductive Disorders: No Genitourinary History of Genitourinary Disor: Yes (Left nephrectomy, renal cell carcinoma) Genitourinary Disorders: Prostate Problems (prostate pellets placed) Gastrointestinal History of Gastrointestinal Di: Yes Gastrointestinal Disorders: Chronic Constipation, Diverticulosis, Hemorrhoids, Polyps Musculoskeletal History of Musculoskeletal Dis: Yes Musculoskeletal Disorders: Arthritis, Fractures (rods placed in ankle and femur) Endocrine History of Endocrine Disorders: No HEENT History of HEENT Disorders: No Cancer History of Cancer: Yes Cancer: Prostate, Kidney (RCC 21 years ago) Psychosocial History of Psychiatric Problem: No Integumentary History of Skin or Integumenta: No Blood Transfusions History of Blood Disorders: Yes (hx DVT) Family Medical History Significant Family History: Cancer (40 yo son had melanoma, mother also had RCC), CAD Under 55 Years Old (40 yo son has CVD), COPD (Father , of COPD), Diabetes (40 yo son has DM), Other Conditions/Hx (mother has Alzheimer's ) Family Medial History: Copd FH: COPD (chronic obstructive pulmonary disease) 19 FATHER FH: diverticulitis FH: renal cell carcinoma 19 MOTHER Review of Systems-General Constitutional: No chills, No fever; malaise Respiratory: No dyspnea on exertion, No short of breath Cardiovascular: No chest pain Gastrointestinal: diarrhea; No hematemesis, No jaundice; melena; No nausea, No vomiting Genitourinary: No dysuria, No hematuria Skin: No change in color, No rash Physical Exam-General Problems Physical Exam Vital Signs Vital Signs - First Documented 06/14/20 11:10 Temp 36.9 Pulse 122 Resp 18 B/P (MAP) 143/88 (106) Pulse Ox 98 O2 Delivery Room Air Capillary Refill : Less Than 3 SecondsLess Than 3 Seconds General Appearance: WD/WN, no apparent distress HEENT: No scleral icterus (L) Respiratory: lungs clear, normal breath sounds, no respiratory distress, no accessory muscle use Cardiovascular: regular rate, rhythm, no murmur Gastrointestinal: normal bowel sounds, non tender, soft, no pulsatile mass; No tenderness Neurologic/Psychiatric: alert, normal mood/affect, oriented x 3 Skin: normal color, warm/dry Data Review Labs Laboratory Tests 06/15/20 05:20: White Blood Count 5.5, Red Blood Count 2.76L, Hemoglobin 8.1#L, Hematocrit 25L, Mean Corpuscular Volume 89, Mean Corpuscular Hemoglobin 29, Mean Corpuscular Hemoglobin Concent 33, Red Cell Distribution Width 14.7H, Platelet Count 178, Mean Platelet Volume 10.0, Neutrophils (%) (Auto) 55, Lymphocytes (%) (Auto) 28, Monocytes (%) (Auto) 12, Eosinophils (%) (Auto) 5, Basophils (%) (Auto) 1, Neutrophils # (Auto) 3.0, Lymphocytes # (Auto) 1.5, Monocytes # (Auto) 0.6, Eosinophils # (Auto) 0.3, Basophils # (Auto) 0.1, Prothrombin Time 31.1H, INR Comment 3.0H, Sodium Level 143, Potassium Level 3.9, Chloride Level 115#H, Carbon Dioxide Level 24, Anion Gap 4L, Blood Urea Nitrogen 23H, Creatinine 0.82, Estimat Glomerular Filtration Rate > 60, BUN/Creatinine Ratio 28, Glucose Level 98, Calcium Level 7.7L, Corrected Calcium 8.7, Total Bilirubin 0.5, Aspartate Amino Transf (AST/SGOT) 15, Alanine Aminotransferase (ALT/SGPT) 10, Alkaline Phosphatase 50, Total Protein 4.7L, Albumin 2.8L Assessment/Plan Assessment/Plan Admission Diagonsis Hematochezia, melena Assessment/Plan Anemia, hematochezia, melena Patient can have clear liquids and will begin bowel prep at 4 pm. Scheduled for colonoscopy tomorrow afternoon. Clinical Quality Measures DVT/VTE Risk/Contraindication: Risk Factor Score Per Nursin RFS Level Per Nursing on Admit: 3=High ANGIE SARMIENOT DO 06/15/20 1811: History of Present Illness History of Present Illness Time Seen by Provider: 14:40 History of Present Illness Surgery asked to consult regarding Hematochezia HPI per ED: This patient is a 64-year-old male presents to the emergency department with complaint of GI bleed. Patient states she's had black tarry stools for about 1 week. Patient was seen by his PCP had normal lab values. Patient does take Coumadin home and states that he doesn't INR check on his home hand-held device weekly in 5 days ago his Coumadin INR level was 2.4. Patient states he is continue to take his medications. Patient states of black tarry stool has increased but he has no complaints of lightheadedness or shortness of breath or any signs of low blood pressure. Blood pressure on arrival was 143 systolic. Patient does have a remote history of renal cell carcinoma for which he had his left kidney removed. 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 Patient does walk with a brace on his left leg and crutches. Patient also states he does have a history of state issues to where he had pellets placed in his prostate. We will do medical evaluation treatment is needed. Timing/Duration: 5-6 Days Severity: Moderate When I spoke to pt he stated he had one prior episode of rectal bleeding about a year after his colonoscopy; "when they took a polyp off", but it only lasted a day. He usually has 4 BM's per day, but they are formed. He states no one at home has similar symptoms. Allergies and Home Medications Allergies Coded Allergies: No Known Drug Allergies (Unverified , 11/10/17) Home Medications Allopurinol 100 Mg Tablet, 100 MG PO DAILY, (Reported) Amitriptyline HCl 100 Mg Tablet, 50 MG PO HS, (Reported) TAKES OF A 100MG Carvedilol 12.5 Mg Tablet, 6.25 MG PO BID, (Reported) TAKES OF A 12.5MG TAB Clopidogrel Bisulfate 75 Mg Tablet, 75 MG PO DAILY, (Reported) Diazepam 10 Mg Tablet, 10 MG PO HS, (Reported) Ketoconazole 120 Ml Shampoo, 1 APPLIC TOP 3-4 TIMES WEEKLY PRN for SCALP RASH, (Reported) Krill/Om-3/Dha/Epa/Phospho/Ast 1 Each Capsule, 1 EACH PO DAILY, (Reported) Multivitamin 1 Each Tablet, 1 EACH PO DAILY, (Reported) Nitroglycerin 0.4 Mg Tab.subl, 0.4 MG SL UD PRN for CHEST PAIN, (Reported) Sacubitril/Valsartan 1 Each Tablet, 1 EACH PO BID, (Reported) Simvastatin 20 Mg Tablet, 20 MG PO HS, (Reported) Tamsulosin HCl 0.4 Mg Cap, 0.4 MG PO 1200, (Reported) Ubidecarenone 100 Mg Capsule, 100 MG PO DAILY@1200, (Reported) Warfarin Sodium 5 Mg Tablet, 7.5 MG PO 1200, (Reported) TAKES 1 & OF A 5MG TAB Patient Home Medication List Home Medication List Reviewed: Yes Past Tutkynw-Bdocww-Hsqdee Hx Family Medical History Significant Family History: Cancer (40 yo son had melanoma, mother also had RCC), COPD (Father , of COPD), Diabetes (40 yo son has DM) Family Medial History: Copd FH: COPD (chronic obstructive pulmonary disease) 19 FATHER FH: diverticulitis FH: renal cell carcinoma 19 MOTHER Review of Systems-General EENTM: No hearing loss, No blurred vision, No double vision, No epistaxis Musculoskeletal: back pain, joint pain, joint swelling, muscle pain, muscle stiffness Psychiatric/Neurological: Denies Anxiety, Denies Depressed, Denies Seizure, Denies Tremors Other pt does bleed and bruise easily because he is on blood thinners Physical Exam-General Problems Physical Exam General Appearance: WD/WN, no apparent distress Eyes: Bilateral Eye PERRL, Bilateral Eye EOMI HEENT: No scleral icterus (R); other (moist mucous membranes) Respiratory: lungs clear, normal breath sounds, no respiratory distress, no ac cessory muscle use Cardiovascular: regular rate, rhythm, no murmur Gastrointestinal: non tender, soft, no organomegaly Back: no CVA tenderness, no vertebral tenderness Extremities: no pedal edema, no calf tenderness, normal capillary refill Neurologic/Psychiatric: alert, oriented x 3 Lymphatic: no adenopathy (neck, axilla or groin) Data Review Radiology Date of Exam:06/14/20 CT ABDOMEN/PELVIS WO EXAM: CT Abdomen and Pelvis Without Intravenous Contrast. CLINICAL HISTORY: Bloody stools. EXAM DATE/TIME: 06/14/2020 COMPARISON: None FINDINGS: Artifacts: None Lower thorax: Clear ABDOMEN: Liver: Normal Gallbladder and bile ducts: There are several small gallstones present. Gallbladder is not distended. Bile ducts are not dilated. Pancreas: Normal Spleen: Normal Adrenals: Normal Kidneys and ureters: The right kidney appears normal. Left kidney is absent. PELVIS: Bladder: Bladder appears normal Reproductive: Prostate is not enlarged. There are radium implants. Appendix: Normal Bowel: There is thickening of the sigmoid colon bowel wall with diverticula and mesenteric edema consistent with focal diverticulitis in the proximal sigmoid colon. ABDOMEN & PELVIS: Stomach and bowel: Normal Peritoneum: No free air or free fluid. Lymph nodes: No adenopathy of pathologic size. Vasculature: There is IVC filter appearing in good orientation. The aorta is atherosclerotic without aneurysm. Bones: No bony abnormalities. IMPRESSION: 1. Findings consistent with focal diverticulitis proximal sigmoid colon. No evidence of abscess, free air or free fluid. 2. Cholelithiasis without acute cholecystitis. Dictated by: Dictated on workstation # [id number] Dict: 06/14/20 1257 Trans: 06/14/20 1337 CV [id number] Interpreted by: ANGIE GALVEZ MD Electronically signed by: ANGIE GALVEZ MD 06/14/20 1337 Assessment/Plan Assessment/Plan Assessment/Plan Hematochezia Anemia Hx of CHF Coagulopathy secondary to meds Pt still has mildly elevated INR due to his coumadin; which is being held. We will prep him for Colonoscopy and get consent. I went over the possible risks and complications of the procedure with pt; not limited to pain, bleeding, infection and intestinal perforation. All questions answered to his satisfaction. The benefit of the procedure is to hopefully determine the cause of his hematochezia. He denies any upper GI symptoms. As long as INR is less than 2 tomorrow we can go ahead with the procedure. Supervisory-Addendum Brief Verification & Attestation Participated in pt care: history, MDM, physical Personally performed: exam, history, MDM Care discussed with: Medical Student Procedures: n/a Verification and Attestation of Medical Student E/M Service A medical student performed and documented this service. I then reviewed and verified all information documented by the medical student and made modif ications to such information, when appropriate. I personally performed a physical exam, medical decision making and then discussed any differences between the notes and made revisions as necessary to create one note. Angie Sarmiento , 06/15/20 , 18:12 ARIAS KINGSTON MED STUDENT Jun 15, 2020 15:57 ANGIE SARMIENTO DO Jun 15, 2020 18:11
[2020-06-15 16:23] VITALS: BP 99/60
[2020-06-15] MEDS ORDERED: BISACODYL 5 MG (DULCOLAX) TABLET PO NR ×2 (16:30→19:00)
[2020-06-15] MEDS ORDERED: polyethylene glycoL Bowel Prep(MIRALAX) 238 GM PO SCH (18:00)
[2020-06-15 19:57] VITALS: BP 96/66
[2020-06-15 20:36] VITALS: BP 102/61
[2020-06-15] MEDS: SIMvastatin 20 MG (ZOCOR) TAB PO SCH (20:40)
[2020-06-15] MEDS: AMITRIPTYLINE 150 MG (ELAVIL) TABLET PO SCH (20:40)
[2020-06-15] MEDS: DIAZEPAM 5 MG (VALIUM) TABLET PO PRN (22:39)
[2020-06-16] VITALS (10 sets, daily range): BP systolic 98–122; BP diastolic 59–77
[2020-06-16 05:14] LABS: BASOPHILS # (AUTO) 0.1 10^3/uL (0.0-0.1); BASOPHILS % (AUTO) 1 % (0-10); EOSINOPHILS # (AUTO) 0.3 10^3/uL (0.0-0.3); EOSINOPHILS % (AUTO) 3 % (0-10); HEMATOCRIT 29 % (40-54); HEMOGLOBIN 9.7 G/DL (13.3-17.7); LYMPHOCYTES # (AUTO) 2.3 X 10^3 (1.0-4.0); LYMPHOCYTES % (AUTO) 24 % (12-44); MEAN CORPUSCULAR HEMOGLOBIN 30 PG (25-34); MEAN CORPUSCULAR HGB CONC 33 G/DL (32-36); MEAN CORPUSCULAR VOLUME 89 FL (80-99); MEAN PLATELET VOLUME 10.1 FL (7.4-10.4); MONOCYTES # (AUTO) 0.7 X 10^3 (0.0-1.0); MONOCYTES % (AUTO) 7 % (0-12); NEUTROPHILS # (AUTO) 6.4 X 10^3 (1.8-7.8); NEUTROPHILS % (AUTO) 65 % (42-75); PLATELET COUNT 273 10^3/uL (130-400); RED CELL DISTRIBUTION WIDTH 14.6 % (10.0-14.5); WHITE BLOOD COUNT 9.8 10^3/uL (4.3-11.0)
[2020-06-16 05:27] LABS: ALBUMIN 3.7 GM/DL (3.2-4.5); CHLORIDE 112 MMOL/L (98-107); POTASSIUM 3.2 MMOL/L (3.6-5.0); SODIUM 142 MMOL/L (135-145)
[2020-06-16 05:28] LABS: CALCIUM 8.1 MG/DL (8.5-10.1)
[2020-06-16 05:30] LABS: GLUCOSE 113 MG/DL (70-105); TOTAL PROTEIN 6.2 GM/DL (6.4-8.2)
[2020-06-16 05:31] LABS: BILIRUBIN,TOTAL 0.6 MG/DL (0.1-1.0); CARBON DIOXIDE 21 MMOL/L (21-32)
[2020-06-16 05:33] LABS: ALKALINE PHOSPHATASE 62 U/L (40-136); CREATININE SERUM 0.91 MG/DL (0.60-1.30); GFR ESTIMATED > 60
[2020-06-16 05:34] LABS: BUN/CREATININE RATIO 11
[2020-06-16 05:36] LABS: ALANINE AMINOTRANSFERASE 16 U/L (0-55)
[2020-06-16] MEDS ORDERED: POTASSIUM CL 10MEQ/50ML IVPB 50 ML IV ONE (06:17)
[2020-06-16] MEDS: POTASSIUM CL 10MEQ/50ML IVPB 50 ML IV SCH ×4 (06:22→11:53)
[2020-06-16] MEDS ORDERED: MAGNESIUM 1 GM/100 ML IVPB 100 ML IV NR (06:50)
[2020-06-16] MEDS: CARVEDILOL 3.125 MG (COREG) TABLET PO SCH ×2 (08:02→18:20)
[2020-06-16] MEDS: SACUBITRIL/VALSARTAN 24/26 MG (ENTRESTO) TABLET PO SCH ×2 (08:02→21:14)
[2020-06-16] MEDS: NS IV 1000 ML 1,000 ML IV SCH ×2 (08:08→19:30)
[2020-06-16] MEDS: ALLOPURINOL 100 MG (ZYLOPRIM) TAB PO SCH (08:08)
[2020-06-16 09:42] LABS: INR 1.5 (0.8-1.4); PROTHROMBIN TIME PATIENT 18.9 SEC (12.2-14.7)
--- NOTE | 2020-06-16 10:52 | Progress Note - Hospitalist ---
PAL PRYOR MED STUDENT 06/16/20 1052: Subjective HPI/CC On Admission CC: GI bleed HPI: This is a 64yoWM with a history of renal cell carcinoma 1998 resulting in a a left nephrectomy who presented with melenic stools, Hgb has remained stable but he does have a history of colon polyps and diverticulosis, making it suspicious for diverticular bleed. Dr. Sarmiento has been consulted and will likely perform scopes. He remains stable. Will hold his BP medication due to hypotension. Subjective/Events-last exam CC: bloody diarrhea HPI: 64 yo male presents with bloody diarrhea. onset was 06/07/2020. pt denies any associated pain. pt reported 6 bm throughout the night 06/16/2020. pt denied any bloody bm last night. Review of Systems General: No Chills, No Night Sweats, No Fatigue, No Malaise, No Appetite, No Other HEENT: No Head Aches, No Visual Changes, No Eye Pain, No Ear Pain, No Dysphasia, No Sinus Congestion, No Post Nasal Drip, No Sore Throat, No Other Cardiovascular: No: Chest Pain, Palpitations Gastrointestinal: Diarrhea; No: Nausea, Vomiting, Abdominal Pain, Constipation, Hematochezia Genitourinary: No Dysuria, No Incontinence, No Retention Focused Exam Respiratory: Chest Non Tender, Lungs Clear, Normal Breath Sounds, No Accessory Muscle Use, No Respiratory Distress Cardiovascular: Regular Rate, Rhythm, No Edema, No Gallop, No JVD, No Murmur Skin: normal color Objective Exam Vital Signs Vital Signs Date Time Temp Pulse Resp B/P (MAP) Pulse Ox O2 Delivery O2 Flow Rate FiO2 06/16/20 13:05 89 16 91 Room Air 06/16/20 13:00 10 06/16/20 12:00 35.8 106/59 (75) Capillary Refill : Less Than 3 SecondsLess Than 3 Seconds General Appearance: No Apparent Distress Neck: Normal Inspection, Non Tender Respiratory: Chest Non Tender, Lungs Clear, Normal Breath Sounds, No Accessory Muscle Use, No Respiratory Distress Cardiovascular: Regular Rate, Rhythm, No Edema, No Gallop, No JVD, No Murmur Gastrointestinal: Normal Bowel Sounds, No Organomegaly, No Pulsatile Mass, Non Tender, Soft Neurologic/Psychiatric: Alert, Oriented x3, Normal Mood/Affect Skin: Normal Color, Warm/Dry Lymphatic: No Adenopathy Results/Procedures Lab Laboratory Tests 06/16/20 04:30 Patient resulted labs reviewed. Assessment/Plan Assessment and Plan Assess & Plan/Chief Complaint Assessment 1- gastrointestinal bleed, lower 2- fecal impaction 3- fecal incontinence 4- colonic polyps 5- hemorrhoids 6- diverticulitis 7- history of myocardial infarction 8- hypertension 9- gout 10- history of renal cell carcinoma 11- heart failure 12- dvt 13- cholelithiasis 14- acute cholecystitis Plan continue with scheduled colonoscopy continue monitoring hemoglobin levels and INR continue hospital course Clinical Quality Measures DVT/VTE Risk/Contraindication: Risk Factor Score Per Nursin RFS Level Per Nursing on Admit: 3=High NITA CHAVIRA DO 06/16/20 1243: Subjective HPI/CC On Admission Date Seen by Provider: Jun 16, 2020 Time Seen by Provider: 10:30 Subjective/Events-last exam Pt feels a lot better Had six BMs with colon prep with no blood in them INR 1.5 Hgb 9.7 Potassium 3.2, will give potassium IV Colonoscopy scheduled for today Will discontinue telemetry Review of Systems General: Fatigue, Malaise Neurological: Weakness Objective Exam General Appearance: No Apparent Distress, WD/WN, Chronically ill Respiratory: Chest Non Tender, Lungs Clear, Normal Breath Sounds, No Accessory Muscle Use, No Respiratory Distress Cardiovascular: Regular Rate, Rhythm, No Edema, No Gallop, No JVD, No Murmur, Normal Peripheral Pulses Neurologic/Psychiatric: Alert, Oriented x3, No Motor/Sensory Deficits, Normal Mood/Affect Assessment/Plan Assessment and Plan Assess & Plan/Chief Complaint 06/16/20: INR is 1.5 Colonoscopy today Disposition maybe to go home today Discontinue telemetry Replace potassium Supervisory-Addendum Brief Verification & Attestation Participated in pt care: history, MDM, physical Personally performed: exam, history, MDM, supervision of care Care discussed with: Medical Student Procedures: n/a Results interpretation: Verified all documentation Verification and Attestation of Medical Student E/M Service A medical student performed and documented this service in my presence. I reviewed and verified all information documented by the medical student and made modifications to such information, when appropriate. I personally performed the physical exam and medical decision making. Nita Chavira, Jun 16, 2020,21:05 PAL PRYOR MED STUDENT Jun 16, 2020 10:52 NITA CHAVIRA DO Jun 16, 2020 12:43
--- NOTE | 2020-06-16 11:52 | NUR ---
THIS RN HUNG 3 BAGS IV K+, THE OTHER BAG WAS HUNG BY CRISS ALVAREZ ON NOC SHIFT. Addendum: 06/16/20 at 1153 by FREEDOM GOMEZ RN A TOTAL OF 40 MEQ GIVEN IV THIS A.M.
[2020-06-16] MEDS ORDERED: LACTATED RINGERS 1,000 ML IV ONE (12:03)
[2020-06-16] MEDS ORDERED: MIDAZOLAM 2 MG/2 ML (VERSED) VIAL ONE (12:15)
[2020-06-16] MEDS ORDERED: proPOfol 200 MG/20 ML (DIPRIVAN) VIAL IV ONE (12:15)
[2020-06-16] MEDS ORDERED: LACTATED RINGERS 1,000 ML IV STA (12:28)
--- NOTE | 2020-06-16 13:27 | Progress Note-Post Operative ---
Post-Operative Progess Note Surgeon (s)/Cleaning Handyman (s) Surgeon ANGIE HADLEY DO Cleaning Handyman: SOFIE Cortez Pre-Operative Diagnosis Hematochezia, Anemia Post-Operative Diagnosis same plus Diverticulosis Int hemorrhoids Procedure & Operative Findings Date of Procedure 06/16/20 Procedure Performed/Findings colonoscopy Anesthesia Type IV sedation by CHILD DEVELOPMENT CONSULTANT Estimated Blood Loss Estimated blood loss (mL): none Specimens/Packing Specimens Removed none ANGIE HADLEY DO Jun 16, 2020 13:27
--- NOTE | 2020-06-16 14:18 | Anesthesia-General Post-Op ---
MAC Patient Condition Mental Status/LOC: Same as Preop Cardiovascular: Satisfactory Nausea/Vomiting: Absent Respiratory: Satisfactory Pain: Controlled Complications: Absent Post Op Complications Complications None Follow Up Care/Instructions Patient Instructions None needed. Anesthesiology Discharge Order Discharge Order Patient is doing well, no complaints, stable vital signs, no apparent adverse anesthesia problems. No complications reported per nursing. ALMA MCCAIN CRNA Jun 16, 2020 14:17
[2020-06-16] MEDS: AMITRIPTYLINE 150 MG (ELAVIL) TABLET PO SCH (21:14)
[2020-06-16] MEDS: SIMvastatin 20 MG (ZOCOR) TAB PO SCH (21:14)
[2020-06-16] MEDS: DIAZEPAM 5 MG (VALIUM) TABLET PO PRN (21:14)
--- NOTE | 2020-06-16 21:34 | OPERATIVE REPORT ---
DATE OF SERVICE: PREOPERATIVE DIAGNOSIS: Hematochezia. POSTOPERATIVE DIAGNOSES: Diverticula, internal hemorrhoids. PROCEDURE: Colonoscopy. SURGEON: Kali Sarmiento DO SUEDE CLEANER: RICK Cortez. ANESTHESIA: IV sedation by LAWN SPRINKLER SERVICER. SPECIMEN: None. BLOOD LOSS: None. FLUIDS: Per anesthesia. POSTOPERATIVE CONDITION: Stable. INDICATION FOR PROCEDURE: The patient is a 64-year-old male who had hematochezia and anemia and needed a workup. FINDINGS: The patient had some old blood and there looked like melena. He had lot of diverticula and internal hemorrhoids, but no obvious source of bleeding. PROCEDURE NOTE: After informed consent was obtained, the patient was brought to the endoscopy suite, placed in bed in left lateral decubitus position. He was administered IV sedation by the LAWN SPRINKLER SERVICER who then monitored his vitals the entire time, heart rate, blood pressure and pulse ox and the scope was inserted, pushed into 160 cm, able to get all the way to cecum, took a picture of appendiceal orifice and on the way in, had noted some diverticula. I also saw some melena in the diverticula, but did not look lik blood was coming from the diverticula. Once in the cecum, then took a picture of appendiceal orifice, slowly withdrew the scope, insufflating to look circumferentially at the vazquez, looking at the cecum, up the ascending colon to the hepatic flexure, then down the transverse colon, the splenic flexure, into the descending colon down into the sigmoid, again throughout the descending colon, sigmoid and actually occasional on the transverse and ascending colon, saw diverticula, continued down into the rectum, retroflexed in rectal vault, saw some minimal internal hemorrhoids, took a picture and then removed the scope. The patient tolerated the procedure, recovered in endoscopy suite. Job ID: [id number] DocumentID: [id number] Dictated Date: 06/16/2020 13:24:53 Automatic Paint Sprayer Operator Date: 06/16/2020 21:33:34 Dictated By: KALI SARMIENTO DO [facility] HOSPITALFrancesca
[2020-06-17] VITALS (12 sets, daily range): BP systolic 83–111; BP diastolic 45–68
[2020-06-17] MEDS: NS IV 1000 ML 1,000 ML IV SCH ×2 (04:07→19:00)
[2020-06-17 05:28] LABS: BASOPHILS % (AUTO) 1 % (0-10); EOSINOPHILS # (AUTO) 0.2 10^3/uL (0.0-0.3); EOSINOPHILS % (AUTO) 5 % (0-10); HEMATOCRIT 23 % (40-54); HEMOGLOBIN 7.2 G/DL (13.3-17.7); LYMPHOCYTES # (AUTO) 1.3 X 10^3 (1.0-4.0); LYMPHOCYTES % (AUTO) 35 % (12-44); MEAN CORPUSCULAR HEMOGLOBIN 29 PG (25-34); MEAN CORPUSCULAR HGB CONC 32 G/DL (32-36); MEAN CORPUSCULAR VOLUME 90 FL (80-99); MEAN PLATELET VOLUME 9.8 FL (7.4-10.4); MONOCYTES # (AUTO) 0.5 X 10^3 (0.0-1.0); MONOCYTES % (AUTO) 13 % (0-12); NEUTROPHILS # (AUTO) 1.8 X 10^3 (1.8-7.8); NEUTROPHILS % (AUTO) 47 % (42-75); PLATELET COUNT 212 10^3/uL (130-400); RED CELL DISTRIBUTION WIDTH 14.8 % (10.0-14.5); WHITE BLOOD COUNT 3.9 10^3/uL (4.3-11.0)
[2020-06-17 05:48] LABS: ALANINE AMINOTRANSFERASE 11 U/L (0-55); ALBUMIN 2.7 GM/DL (3.2-4.5); ALKALINE PHOSPHATASE 48 U/L (40-136); BILIRUBIN,TOTAL 0.3 MG/DL (0.1-1.0); BUN/CREATININE RATIO 7; CALCIUM 7.5 MG/DL (8.5-10.1); CARBON DIOXIDE 22 MMOL/L (21-32); CHLORIDE 116 MMOL/L (98-107); GFR ESTIMATED > 60; GLUCOSE 89 MG/DL (70-105); POTASSIUM 3.6 MMOL/L (3.6-5.0); SODIUM 143 MMOL/L (135-145); TOTAL PROTEIN 4.6 GM/DL (6.4-8.2)
--- NOTE | 2020-06-17 07:45 | Progress Note - Surgery ---
ARIAS KINGSTON MED STUDENT 06/17/20 0745: Subjective Date Seen by a Provider: Jun 17, 2020 Time Seen by a Provider: 07:25 Subjective/Events-last exam Patient seen and examined. He states that he feels better and "like he could run a race today". He has had one bowel movement since the colonoscopy yesterday which was formed with no blood. He is not having any abdominal pain and no fatigue. Objective Exam Vital Signs Date Time Temp Pulse Resp B/P (MAP) Pulse Ox O2 Delivery O2 Flow Rate FiO2 06/17/20 06:38 102/61 (75) 06/17/20 04:00 36.8 75 18 92/49 (63) 99 Room Air 06/16/20 23:56 36.8 67 18 98/61 (73) 96 Room Air 06/16/20 20:00 36.5 89 18 118/77 (91) 100 Room Air 06/16/20 20:00 Room Air 06/16/20 16:00 36.5 68 16 106/65 (79) 100 Room Air 06/16/20 13:05 89 16 91 Room Air 06/16/20 13:00 87 16 100 OxyMask 10 06/16/20 12:55 87 16 100 OxyMask 10 06/16/20 12:00 35.8 84 16 106/59 (75) 99 Room Air 06/16/20 08:00 98 Room Air 06/16/20 08:00 36.6 90 17 101/66 (78) 98 Room Air I & O 06/17/20 07:00 Intake Total 3830 ml Output Total 1300 ml Balance 2530 ml Capillary Refill : Less Than 3 SecondsLess Than 3 Seconds General Appearance: No Apparent Distress, WD/WN Respiratory: Chest Non Tender, Lungs Clear, Normal Breath Sounds, No Accessory Muscle Use, No Respiratory Distress Cardiovascular: Regular Rate, Rhythm, No Edema, No Gallop, No JVD, No Murmur Gastrointestinal: non tender Extremity: Non Tender, No Calf Tenderness, No Pedal Edema Neurologic/Psychiatric: Alert, Oriented x3, No Motor/Sensory Deficits, Normal Mood/Affect Skin: Normal Color, Warm/Dry Results Lab Laboratory Tests 06/17/20 04:55: White Blood Count 3.9L, Red Blood Count 2.51L, Hemoglobin 7.2#L, Hematocrit 23L, Mean Corpuscular Volume 90, Mean Corpuscular Hemoglobin 29, Mean Corpuscular Hemoglobin Concent 32, Red Cell Distribution Width 14.8H, Platelet Count 212, Mean Platelet Volume 9.8, Neutrophils (%) (Auto) 47, Lymphocytes (%) (Auto) 35, Monocytes (%) (Auto) 13H, Eosinophils (%) (Auto) 5, Basophils (%) (Auto) 1, Neutrophils # (Auto) 1.8, Lymphocytes # (Auto) 1.3, Monocytes # (Auto) 0.5, Eosinophils # (Auto) 0.2, Basophils # (Auto) 0.0, Sodium Level 143, Potassium Level 3.6, Chloride Level 116H, Carbon Dioxide Level 22, Anion Gap 5, Blood Urea Nitrogen 6L, Creatinine 0.90, Estimat Glomerular Filtration Rate > 60, BUN/Creatinine Ratio 7, Glucose Level 89, Calcium Level 7.5L, Corrected Calcium 8.5, Total Bilirubin 0.3, Aspartate Amino Transf (AST/SGOT) 18, Alanine Aminotransferase (ALT/SGPT) 11, Alkaline Phosphatase 48, Total Protein 4.6L, Albumin 2.7L Microbiology 06/15/20 MRSA Screen - Final, Complete MRSA not isolated Assessment/Plan Assessment/Plan Assessment/Plan Hematochezia Anemia Hx of CHF . Clinical Quality Measures DVT/VTE Risk/Contraindication: Risk Factor Score Per Nursin RFS Level Per Nursing on Admit: 3=High KALI SRAMIENTO DO 06/17/20 1629: Subjective Time Seen by a Provider: 14:37 Subjective/Events-last exam Pt seen and examined, he has multiple questions about his anemia. States he has not had any more melena. Review of Systems General: Fatigue, Malaise Pulmonary: No Dyspnea, No Cough Cardiovascular: No: Chest Pain, Palpitations Gastrointestinal: No: Nausea, Vomiting, Abdominal Pain Objective Exam General Appearance: No Apparent Distress, Chronically ill HEENT: PERRL/EOMI, Moist Mucous Membranes Respiratory: Lungs Clear, Normal Breath Sounds, No Accessory Muscle Use, No Respiratory Distress Cardiovascular: Regular Rate, Rhythm, No Murmur Gastrointestinal: non tender, soft; No distended Skin: Warm/Dry, Pallor Assessment/Plan Assessment/Plan Assessment/Plan Anemia Melena Diverticulosis Abnormal Coagulation. I explained to the pt and his what was found during Colonoscopy yesterday. Unfortunately, no obvious source of bleeding was seen; he did have melena in his diverticula. Fortunately, no bad pathology seen during the exam either. He is getting transfused now and will recheck CBC tomorrow. If he doesn't drop Hg again, probably can go home....but if it drops he may need an EGD. He asked about anemia secondary to his bone cancer he had; I doubt this is the cause, but he should go see his Oncologist to be safe. He understood all of this. He also needs to talk to the physicians who put him on Plavix and Coumadin, his blood thinners definitely contributed to the anemia. Maybe, he needs to only take one? He said he will do this. Supervisory-Addendum Brief Verification & Attestation Participated in pt care: history, MDM, physical Personally performed: history, MDM Care discussed with: Medical Student Procedures: n/a Verification and Attestation of Medical Student E/M Service A medical student performed and documented this service. I then reviewed and verified all information documented by the medical student and made modifications to such information, when appropriate. I personally performed a physical exam, medical decision making and then discussed any differences between the notes and made revisions as necessary to create one note. Kali Sarmiento , 06/17/20 , 16:30 ARIAS KINGSTON MED STUDENT Jun 17, 2020 07:45 KALI SARMIENTO DO Jun 17, 2020 16:29
[2020-06-17] MEDS ORDERED: NS IV 500 ML 500 ML IV SCH (10:15)
[2020-06-17] MEDS ORDERED: FUROSEMIDE 40 MG/4 ML INJ (LASIX) IVP ONE (10:15)
[2020-06-17] MEDS: ALLOPURINOL 100 MG (ZYLOPRIM) TAB PO SCH (10:35)
--- NOTE | 2020-06-17 11:36 | Progress Note - Hospitalist ---
PAL PRYOR MED STUDENT 06/17/20 1136: Subjective HPI/CC On Admission CC: GI bleed HPI: This is a 64yoWM with a history of renal cell carcinoma 1998 resulting in a a left nephrectomy who presented with melenic stools, Hgb has remained stable but he does have a history of colon polyps and diverticulosis, making it suspicious for diverticular bleed. Dr. Sarmiento has been consulted and will likely perform scopes. He remains stable. Will hold his BP medication due to hypotension. Subjective/Events-last exam CC: GI bleed HPI: 64 yo M presents with a history of bloody stools starting on 06/07/2020. pt reports that stools since 06/16/20 have not had any blood. pt had colonoscopy on 06/16/20. pt reports no pain. Focused Exam Respiratory: Lungs Clear, Normal Breath Sounds, No Accessory Muscle Use, No Respiratory Distress Cardiovascular: Regular Rate, Rhythm Skin: normal color Objective Exam Vital Signs Vital Signs Date Time Temp Pulse Resp B/P (MAP) Pulse Ox O2 Delivery O2 Flow Rate FiO2 06/17/20 11:15 36.8 78 18 106/58 99 Room Air 06/16/20 13:00 10 Capillary Refill : Less Than 3 SecondsLess Than 3 Seconds General Appearance: No Apparent Distress Neck: Non Tender Respiratory: Chest Non Tender, Lungs Clear, Normal Breath Sounds, No Accessory Muscle Use, No Respiratory Distress Cardiovascular: Regular Rate, Rhythm, Normal Peripheral Pulses Gastrointestinal: Normal Bowel Sounds, Non Tender, Soft Neurologic/Psychiatric: Alert, Oriented x3 Results/Procedures Lab Laboratory Tests 06/17/20 04:55 Patient resulted labs reviewed. Assessment/Plan Assessment and Plan Assess & Plan/Chief Complaint Assessment 06/16/20 1- gastrointestinal bleed, lower 2- fecal impaction 3- fecal incontinence 4- colonic polyps 5- hemorrhoids 6- diverticulitis 7- history of myocardial infarction 8- hypertension 9- gout 10- history of renal cell carcinoma 11- heart failure 12- dvt 13- cholelithiasis 14- acute cholecystitis Plan 06/16/20 continue with scheduled colonoscopy continue monitoring hemoglobin levels and INR continue hospital course Assessment 06/17/20 diverticular gi bleed plan 06/17/20 give two units of blood continue to monitor blood pressure continue holding anti-hypertensive medications Clinical Quality Measures DVT/VTE Risk/Contraindication: Risk Factor Score Per Nursin RFS Level Per Nursing on Admit: 3=High NITA CHAVIRA DO 06/17/20 1236: Subjective HPI/CC On Admission Date Seen by Provider: Jun 17, 2020 Time Seen by Provider: 10:00 Subjective/Events-last exam Hgb 7.2 prompting transfusion of two units Iron level will be obtained Had a Edilson filter placement question since he had that many years ago Diverticular bleed discussed, Dr. Sarmiento will update him also Likely discharge tomorrow Review of Systems General: Fatigue, Malaise Neurological: Weakness Objective Exam General Appearance: No Apparent Distress, WD/WN HEENT: PERRL/EOMI, TMs Normal, Normal ENT Inspection, Pharynx Normal, Moist Mucous Membranes Neck: Full Range of Motion, Normal Inspection, Non Tender, Supple, Carotid Bruit Respiratory: Chest Non Tender, Lungs Clear, Normal Breath Sounds, No Accessory Muscle Use, No Respiratory Distress Cardiovascular: Regular Rate, Rhythm, No Edema, No Gallop, No JVD, No Murmur, Normal Peripheral Pulses Gastrointestinal: Normal Bowel Sounds, No Organomegaly, No Pulsatile Mass, Non Tender, Soft Back: Normal Inspection, No CVA Tenderness, No Vertebral Tenderness Extremity: Normal Capillary Refill, Normal Inspection, Normal Range of Motion, Non Tender, No Calf Tenderness, No Pedal Edema Neurologic/Psychiatric: Alert, Oriented x3, No Motor/Sensory Deficits, Normal Mood/Affect Skin: Normal Color, Warm/Dry Lymphatic: No Adenopathy Assessment/Plan Assessment and Plan Assess & Plan/Chief Complaint 06/17/20: Transfer 2 units of blood Give IV Lasix in between units Monitor hemoglobin Dr. Sarmiento to certified substance abuse counselor him regarding diverticular bleed Supervisory-Addendum Brief Verification & Attestation Participated in pt care: history, MDM, physical Personally performed: exam, history, MDM, supervision of care Care discussed with: Medical Student Procedures: n/a Results interpretation: Verified all documentation Verification and Attestation of Medical Student E/M Service A medical student performed and documented this service in my presence. I reviewed and verified all information documented by the medical student and made modifications to such information, when appropriate. I personally performed the physical exam and medical decision making. Nita Chavira, Jun 17, 2020,21:40 PAL PRYOR MED STUDENT Jun 17, 2020 11:36 NITA CHAVIRA DO Jun 17, 2020 12:36
[2020-06-17] MEDS: CARVEDILOL 3.125 MG (COREG) TABLET PO SCH ×2 (13:46→19:00)
[2020-06-17] MEDS: SACUBITRIL/VALSARTAN 24/26 MG (ENTRESTO) TABLET PO SCH ×2 (13:47→20:23)
[2020-06-17] MEDS ORDERED: FUROSEMIDE 40 MG/4 ML INJ (LASIX) ONE (13:50)
[2020-06-17] MEDS: DOCUSATE SODIUM 100 MG (COLACE) CAP PO SCH (20:23)
[2020-06-17] MEDS: SIMvastatin 20 MG (ZOCOR) TAB PO SCH (20:23)
[2020-06-17] MEDS: DIAZEPAM 5 MG (VALIUM) TABLET PO PRN (20:24)
[2020-06-17] MEDS: AMITRIPTYLINE 150 MG (ELAVIL) TABLET PO SCH (20:24)
[2020-06-18 00:25] VITALS: BP 93/50
[2020-06-18] MEDS: NS IV 1000 ML 1,000 ML IV SCH (01:16)
[2020-06-18 04:00] VITALS: BP 97/55
[2020-06-18 06:05] LABS: BASOPHILS % (AUTO) 1 % (0-10); EOSINOPHILS # (AUTO) 0.2 10^3/uL (0.0-0.3); EOSINOPHILS % (AUTO) 4 % (0-10); HEMATOCRIT 28 % (40-54); HEMOGLOBIN 9.5 G/DL (13.3-17.7); LYMPHOCYTES # (AUTO) 1.5 X 10^3 (1.0-4.0); LYMPHOCYTES % (AUTO) 31 % (12-44); MEAN CORPUSCULAR HEMOGLOBIN 30 PG (25-34); MEAN CORPUSCULAR HGB CONC 34 G/DL (32-36); MEAN CORPUSCULAR VOLUME 88 FL (80-99); MEAN PLATELET VOLUME 9.7 FL (7.4-10.4); MONOCYTES # (AUTO) 0.6 X 10^3 (0.0-1.0); MONOCYTES % (AUTO) 12 % (0-12); NEUTROPHILS # (AUTO) 2.6 X 10^3 (1.8-7.8); NEUTROPHILS % (AUTO) 53 % (42-75); PLATELET COUNT 231 10^3/uL (130-400); RED CELL DISTRIBUTION WIDTH 14.5 % (10.0-14.5); WHITE BLOOD COUNT 4.8 10^3/uL (4.3-11.0)
[2020-06-18 06:25] LABS: ALANINE AMINOTRANSFERASE 12 U/L (0-55); ALKALINE PHOSPHATASE 56 U/L (40-136); BILIRUBIN,TOTAL 0.4 MG/DL (0.1-1.0); BUN/CREATININE RATIO 8; CALCIUM 7.8 MG/DL (8.5-10.1); CARBON DIOXIDE 25 MMOL/L (21-32); CHLORIDE 109 MMOL/L (98-107); CREATININE SERUM 1.02 MG/DL (0.60-1.30); GFR ESTIMATED > 60; GLUCOSE 90 MG/DL (70-105); POTASSIUM 3.3 MMOL/L (3.6-5.0); SODIUM 141 MMOL/L (135-145); TOTAL PROTEIN 5.2 GM/DL (6.4-8.2)
--- NOTE | 2020-06-18 07:40 | Progress Note - Surgery ---
ARIAS KINGSTON MED STUDENT 06/18/20 0740: Subjective Date Seen by a Provider: Jun 18, 2020 Time Seen by a Provider: 07:15 Subjective/Events-last exam Mr. Siddiqui was seen and examined this morning. He is feeling much better and his Hbg has come up to 9.5 since yesterday. He is not having any abdominal pain but does report constipation. He has not had a bowel movement since yesterday morning and would like to know if he could have medication to help with this. He denies N/V, chest pain, and shortness of breath. Objective Exam Vital Signs Date Time Temp Pulse Resp B/P (MAP) Pulse Ox O2 Delivery O2 Flow Rate FiO2 06/18/20 04:00 37.0 77 18 97/55 (69) 96 Room Air 06/18/20 00:25 37.2 75 16 93/50 (64) 95 Room Air 06/17/20 20:00 Room Air 06/17/20 20:00 36.0 117 16 111/64 (80) 98 Room Air 06/17/20 18:00 37.0 81 18 98/58 99 Room Air 06/17/20 16:00 36.0 78 18 95/54 (68) 99 Room Air 06/17/20 14:45 36.9 80 18 101/68 99 Room Air 06/17/20 14:29 36.9 99 18 101/55 96 Room Air 06/17/20 12:39 37.0 73 16 104/64 (77) 100 Room Air 06/17/20 11:40 36.9 73 18 99/58 99 Room Air 06/17/20 11:15 36.8 78 18 106/58 99 Room Air 06/17/20 10:21 78 107/65 (79) 06/17/20 08:00 Room Air 06/17/20 07:38 36.6 77 16 83/45 (58) 98 Room Air I & O 06/18/20 07:00 Intake Total 2150 ml Output Total 3675 ml Balance -1525 ml Capillary Refill : Less Than 3 SecondsLess Than 3 Seconds General Appearance: No Apparent Distress, WD/WN HEENT: PERRL/EOMI, Moist Mucous Membranes Respiratory: Chest Non Tender, Lungs Clear, Normal Breath Sounds, No Accessory Muscle Use, No Respiratory Distress Cardiovascular: Regular Rate, Rhythm, No Gallop, No Murmur Gastrointestinal: non tender, soft; No distended Extremity: Normal Inspection, Non Tender, No Calf Tenderness Neurologic/Psychiatric: Alert, Oriented x3, No Motor/Sensory Deficits, Normal Mood/Affect Skin: Normal Color, Warm/Dry Results Lab Laboratory Tests 06/18/20 05:12: White Blood Count 4.8, Red Blood Count 3.18L, Hemoglobin 9.5#L, Hematocrit 28L, Mean Corpuscular Volume 88, Mean Corpuscular Hemoglobin 30, Mean Corpuscular Hemoglobin Concent 34, Red Cell Distribution Width 14.5, Platelet Count 231, Mean Platelet Volume 9.7, Neutrophils (%) (Auto) 53, Lymphocytes (%) (Auto) 31, Monocytes (%) (Auto) 12, Eosinophils (%) (Auto) 4, Basophils (%) (Auto) 1, Neutrophils # (Auto) 2.6, Lymphocytes # (Auto) 1.5, Monocytes # (Auto) 0.6, Eosinophils # (Auto) 0.2, Basophils # (Auto) 0.0, Sodium Level 141, Potassium Level 3.3L, Chloride Level 109H, Carbon Dioxide Level 25, Anion Gap 7, Blood Urea Nitrogen 8, Creatinine 1.02, Estimat Glomerular Filtration Rate > 60, BUN/Creatinine Ratio 8, Glucose Level 90, Calcium Level 7.8L, Corrected Calcium 8.6, Total Bilirubin 0.4, Aspartate Amino Transf (AST/SGOT) 19, Alanine Aminotransferase (ALT/SGPT) 12, Alkaline Phosphatase 56, Total Protein 5.2L, Albumin 3.0L Microbiology 06/15/20 MRSA Screen - Final, Complete MRSA not isolated Assessment/Plan Assessment/Plan Assessment/Plan Anemia Melena Diverticulosis Abnormal Coagulation. Clinical Quality Measures DVT/VTE Risk/Contraindication: Risk Factor Score Per Nursin RFS Level Per Nursing on Admit: 3=High ANGIE HADLEY DO 06/20/20 1443: Supervisory-Addendum Brief Verification & Attestation Participated in pt care: history, MDM, physical Personally performed: other (pt was discharged before I saw him) Care discussed with: Medical Student Procedures: n/a Pt was d/c'd before I saw him. I did discuss with medical student her history and physical exam. ARIAS KINGSTON MED STUDENT Jun 18, 2020 07:40 ANGIE HADLEY DO Jun 20, 2020 14:43
[2020-06-18 08:23] VITALS: BP 94/56
[2020-06-18] MEDS: CARVEDILOL 3.125 MG (COREG) TABLET PO SCH (08:50)
[2020-06-18] MEDS: IRON SUCROSE 200 MG/10 ML (VENOFER) VIAL IV SCH ×2 (08:51→08:52)
[2020-06-18] MEDS: DOCUSATE SODIUM 100 MG (COLACE) CAP PO SCH (08:51)
[2020-06-18] MEDS: SACUBITRIL/VALSARTAN 24/26 MG (ENTRESTO) TABLET PO SCH (08:52)
[2020-06-18] MEDS: ALLOPURINOL 100 MG (ZYLOPRIM) TAB PO SCH (08:58)
[2020-06-18 11:14] VITALS: BP 101/55
[2020-06-18] MEDS ORDERED: CARV3.122 PO (11:16)
--- NOTE | 2020-06-18 11:17 | Discharge Summary ---
Discharge Summary Hospital Course Was the Problem List Reviewed?: Yes Problems/Dx: (1) GI bleed Hospital Course Date of Admission: Jun 14, 2020 at 14:50 Admission Diagnosis : Family Physician/Provider: Cain Mijares MD Date of Discharge: 06/18/20 Discharge Diagnosis: Diverticular bleed, Coumadin treatment Hospital Course: Hospital course: Pt had an uneventful hospital course, he was admitted for GI bleed and melenic stools, Coumadin was held and he required two units of blood due to Hgb 7.2, that ceasar to 9.5 at discharge. He had a filter in place due to pulmonary emboli eight years ago and for that reason we will restart his Plavix, we will hold Coumadin until he speaks with Dr. Mijares and he speaks with his maintenance pipefitter Dr. Agudelo. I did have him hold his Entresto for issues of low BP if systolic is less than 100 in the meantime. Labs and Pending Lab Test: Laboratory Tests 06/18/20 05:12: White Blood Count 4.8, Red Blood Count 3.18L, Hemoglobin 9.5#L, Hematocrit 28L, Mean Corpuscular Volume 88, Mean Corpuscular Hemoglobin 30, Mean Corpuscular Hemoglobin Concent 34, Red Cell Distribution Width 14.5, Platelet Count 231, Mean Platelet Volume 9.7, Neutrophils (%) (Auto) 53, Lymphocytes (%) (Auto) 31, Monocytes (%) (Auto) 12, Eosinophils (%) (Auto) 4, Basophils (%) (Auto) 1, Neutrophils # (Auto) 2.6, Lymphocytes # (Auto) 1.5, Monocytes # (Auto) 0.6, Eosinophils # (Auto) 0.2, Basophils # (Auto) 0.0, Sodium Level 141, Potassium Level 3.3L, Chloride Level 109H, Carbon Dioxide Level 25, Anion Gap 7, Blood Urea Nitrogen 8, Creatinine 1.02, Estimat Glomerular Filtration Rate > 60, BUN/Creatinine Ratio 8, Glucose Level 90, Calcium Level 7.8L, Corrected Calcium 8.6, Total Bilirubin 0.4, Aspartate Amino Transf (AST/SGOT) 19, Alanine Aminotransferase (ALT/SGPT) 12, Alkaline Phosphatase 56, Total Protein 5.2L, Albumin 3.0L Microbiology 8/10/20 MRSA Screen - Final, Complete MRSA not isolated Home Meds Active Carvedilol 3.125 Mg Tablet 3.125 Mg PO BID WITH MEALS Reported Amitriptyline HCl 100 Mg Tablet 50 Mg PO HS TAKES OF A 100MG Flomax (Tamsulosin HCl) 0.4 Mg Cap 0.4 Mg PO 1200 Clopidogrel (Clopidogrel Bisulfate) 75 Mg Tablet 75 Mg PO DAILY Ketoconazole 120 Ml Shampoo 1 Applic TOP 3-4 TIMES WEEKLY PRN Warfarin Sodium 5 Mg Tablet 7.5 Mg PO 1200 TAKES 1 & OF A 5MG TAB Carvedilol 12.5 Mg Tablet 6.25 Mg PO BID TAKES OF A 12.5MG TAB Megared [place]-3 Krill Oil Sfgl (Krill/Om-3/Dha/Epa/Phospho/Ast) 1 Each Capsule 1 Each PO DAILY Simvastatin 20 Mg Tablet 20 Mg PO HS Entresto 24 mg-26 mg Tablet (Sacubitril/Valsartan) 1 Each Tablet 1 Each PO BID Nitroglycerin 0.4 Mg Tab.subl 0.4 Mg SL UD PRN Multivitamins (Multivitamin) 1 Each Tablet 1 Each PO DAILY Diazepam 10 Mg Tablet 10 Mg PO HS Co Q-10 (Ubidecarenone) 100 Mg Capsule 100 Mg PO DAILY@1200 Allopurinol 100 Mg Tablet 100 Mg PO DAILY Assessment/Pt Instructions [facility] in 1 week Discharge Planning: <30 minutes discharge planning Discharge Physical Examination Vital Signs Vital Signs Date Time Temp Pulse Resp B/P (MAP) Pulse Ox O2 Delivery O2 Flow Rate FiO2 06/18/20 11:14 36.4 78 16 101/55 (70) 99 Room Air 06/16/20 13:00 10 General Appearance: No Apparent Distress, WD/WN HEENT: PERRL/EOMI, TMs Normal, Normal ENT Inspection, Pharynx Normal, Moist Mucous Membranes Respiratory: Chest Non Tender, Lungs Clear, Normal Breath Sounds, No Accessory Muscle Use, No Respiratory Distress Cardiovascular: Regular Rate, Rhythm, No Edema, No Gallop, No JVD, No Murmur, Normal Peripheral Pulses Gastrointestinal: Normal Bowel Sounds, No Organomegaly, No Pulsatile Mass, Non Tender, Soft Extremity: Normal Capillary Refill, Normal Inspection, Normal Range of Motion, Non Tender, No Calf Tenderness, No Pedal Edema Skin: Normal Color, Warm/Dry Neurologic/Psychiatric: Alert, Oriented x3, No Motor/Sensory Deficits, Normal Mood/Affect Allergies: Coded Allergies: No Known Drug Allergies (Unverified , 11/10/17) Discharge Summary Date of Admission Jun 14, 2020 at 14:50 Date of Discharge Discharge Date: Jun 18, 2020 Admission Diagnosis Assessment: Gi bleed likely lower Anemia History of renal cell carcinoma Plan: General surgery consultation Monitor Hemiglobin Discharge Diagnosis 06/17/20: Transfer 2 units of blood Give IV Lasix in between units Monitor hemoglobin Dr. Sarmiento to certified genetic counselor him regarding diverticular bleed (1) GI bleed Clinical Quality Measures DVT/VTE Risk/Contraindication: Risk Factor Score Per Nursin RFS Level Per Nursing on Admit: 3=High JUNIOR SHAW DO Jun 18, 2020 11:17
--- NOTE | 2020-06-18 11:42 | Progress Note ---
PAL PRYOR MED STUDENT 06/18/20 1142: Progress Note 64 yo M presents with multiple bouts of bloody diarrhea. Colonoscopy was performed, afterwards pt denies diarrhea and denies blood with stools. pt received two blood transfusions. patient states that he is feeling great and ready to go home. Patient has been informed that he will need follow up lab testing and close supervision by primary care physician. Patient also directed to contact asphalt tamping machine operator regarding anti-hypertensive medication questions and concerns. NITA CHAVIRA DO 06/18/20 2206: Supervisory-Addendum Brief Verification & Attestation Participated in pt care: history, MDM, physical Personally performed: exam, history, MDM, supervision of care Care discussed with: Medical Student Procedures: n/a Results interpretation: Verified all documentation Verification and Attestation of Medical Student E/M Service A medical student performed and documented this service in my presence. I reviewed and verified all information documented by the medical student and made modifications to such information, when appropriate. I personally performed the physical exam and medical decision making. Nita Chavira, Jun 18, 2020,22:06 PAL PRYOR MED STUDENT Jun 18, 2020 11:42 NITA CHAVIRA DO Jun 18, 2020 22:06
--- NOTE | 2020-06-18 13:39 | Physician Query Clarification ---
"Physician Query-General Query to Physician: The medical record reflects the following clinical scenario: History/Risk factors: On plavix and coumadin Clinical Findings: Bloody stools, HGB down to 7.2, INR 4.2 Treatment: coumadin/plavix held, 2 units RBCs, Phytonadione Question: What condition best reflects the above clinical scenario? Please document response in the Progress notes or Discharge Summary. 1. Gastrointestinal Bleed, Lower Likely due to anticoagulants 2. Gastrointestinal Bleed, Lower (as currently documented) 3. Other , with explanation of the clinical findings 4. Clinically undetermined, no explanation for the clinical findings Please remember a lack of response to the above will prompt a phone page by CDI/coding staff In responding to this query, please exercise your independent professional judgment. The purpose of this communication is to more accurately reflect the complexity of your patients condition. The fact that a question is asked does not imply that any particular answer is desired or expected. Thank you for timely response to this clarification. Danae Mccain, MSN, RN RN Specialist-Clinical Doc Improvement CD -Health Info Mgmt Operations [address] [facility] t: [phone] | f: [phone] If you are unable to reach me at my extension, I may be working from home. Please contact me at [phone] PHYSICIAN RESPONSE: Based on the clinical findings in the record, please respond to the query above on this document as an addendum. Physician Response: Physician Response 2 If you have questions please contact: Scanning Clerk: Ext: Thank you for your time and cooperation. Clinical Milk Inspector/Scanning Clerk This is a permanent part of the medical record DANAE MCCAIN Jun 18, 2020 13:39 JUNIOR SHAW DO Jun 18, 2020 20:51"
--- NOTE | 2020-06-19 09:09 | Physician Query Clarification ---
PQ-Further Specificity Admission/Discharge Admission Date: Jun 14, 2020 at 14:50 Discharge Date: Jun 18, 2020 at 13:15 Dr. Chavira, The medical record reflects the following clinical scenario: History/Risk Factors: Diverticulitis, Melena, anemia Clinical Findings: Black tarry stools for about 1 week, Hgb/Hct 7.2/ Treatment: Transfused 2 U RBC's, IV Venofer 200 mg Question: Can you further specify anemia per the clinical indicators above? Please document a response in the Progress Notes or Discharge Summary. 1. acute blood loss anemia 2. chronic blood loss anemia 3. Other, with explanation of the clinical findings. 4. Clinically undetermined, no explanation for the clinical findings. PHYSICIAN RESPONSE Can you specify per above: 1 Please remember a lack of response to the above will prompt a phone page by CDI/Coding staff. In responding to this query, please exercise your independent professional judgment. The purpose of this communication is to more accurately reflect the complexity of your patients condition. The fact that a question is asked does not imply that any particular answer is desired or expected. Thank you for your timely response to this clarification. Requestors name: Tyler [email or web address] THIS PHYSICIAN QUERY FORM IS A PERMANENT PART OF THE MEDICAL RECORD TYLER QUINTANA Jun 19, 2020 09:09 JUNIOR CHAVIRA DO Jun 19, 2020 10:00
== END 2020-06-18 13:15 | disposition home or self-care (01) | DRG 378 ==
LOC: EDUNIT# 11:06 → ER FS 11:09 → UNDOADMIN 13:30 → 4TH 13:30 → ER FS 14:00 → 4TH 14:50
PROVIDERS: ADMIT Internal Medicine; ATTEND Internal Medicine
PROC: 0DJD8ZZ Inspection of Lower Intestinal Tract, Via Natural or Artificial Opening Endoscopic (ICD-10-PCS; principal; 2020-06-16 12:15)
DX: K57.33 Diverticulitis of large intestine without perforation or abscess with bleeding (principal); D62 Acute posthemorrhagic anemia; I95.9 Hypotension, unspecified; K59.00 Constipation, unspecified; K64.8 Other hemorrhoids; K80.20 Calculus of gallbladder without cholecystitis without obstruction; I25.10 Atherosclerotic heart disease of native coronary artery without angina pectoris; I11.0 Hypertensive heart disease with heart failure; I50.9 Heart failure, unspecified; I25.2 Old myocardial infarction; E78.00 Pure hypercholesterolemia, unspecified; M19.91 Primary osteoarthritis, unspecified site; M10.9 Gout, unspecified; G62.9 Polyneuropathy, unspecified; Z20.828 Contact with and (suspected) exposure to other viral communicable diseases; Z86.718 Personal history of other venous thrombosis and embolism; Z79.01 Long term (current) use of anticoagulants; Z85.528 Personal history of other malignant neoplasm of kidney; Z90.5 Acquired absence of kidney; Z95.5 Presence of coronary angioplasty implant and graft; Z87.891 Personal history of nicotine dependence; Z85.46 Personal history of malignant neoplasm of prostate; Z86.010 Personal history of colon polyps; Z96.642 Presence of left artificial hip joint
CPT/HCPCS: 36415; 74022; 74176; 80053; 81000; 82274; 83540; 83735; 85025; 85610; 86850; 86900; 86901; 86920; 87081; 87635; 93005

== ENCOUNTER → 2020-10-06 | Outpatient (CLI) | payer MEDICARE, OTHER ==
[~2020-10-06] MED LIST changes: +AMIT100T2 PO; +CARV12.53 PO; +KETO120S13 TOP; +KRIL1CAP22 PO; +LEVO750T39 PO; +TMSL.4C PO
[2020-10-06 12:26] LABS: BASOPHILS % (AUTO) 0 % (0-10); EOSINOPHILS # (AUTO) 0.1 10^3/uL (0.0-0.3); EOSINOPHILS % (AUTO) 1 % (0-10); HEMATOCRIT 41 % (40-54); HEMOGLOBIN 12.8 G/DL (13.3-17.7); LYMPHOCYTES # (AUTO) 0.8 X 10^3 (1.0-4.0); LYMPHOCYTES % (AUTO) 10 % (12-44); MEAN CORPUSCULAR HEMOGLOBIN 22 PG (25-34); MEAN CORPUSCULAR HGB CONC 31 G/DL (32-36); MEAN CORPUSCULAR VOLUME 73 FL (80-99); MEAN PLATELET VOLUME 8.8 FL (7.4-10.4); MONOCYTES # (AUTO) 0.7 X 10^3 (0.0-1.0); MONOCYTES % (AUTO) 9 % (0-12); NEUTROPHILS # (AUTO) 6.5 X 10^3 (1.8-7.8); NEUTROPHILS % (AUTO) 80 % (42-75); PLATELET COUNT 315 10^3/uL (130-400); WHITE BLOOD COUNT 8.2 10^3/uL (4.3-11.0)
[2020-10-06 12:49] LABS: ALANINE AMINOTRANSFERASE 8 U/L (0-55); ALBUMIN 3.8 GM/DL (3.2-4.5); ALKALINE PHOSPHATASE 80 U/L (40-136); BILIRUBIN,TOTAL 0.4 MG/DL (0.1-1.0); BUN/CREATININE RATIO 13; CALCIUM 9.2 MG/DL (8.5-10.1); CARBON DIOXIDE 26 MMOL/L (21-32); CHLORIDE 103 MMOL/L (98-107); CREATININE SERUM 1.16 MG/DL (0.60-1.30); GFR ESTIMATED > 60; GLUCOSE 92 MG/DL (70-105); POTASSIUM 4.3 MMOL/L (3.6-5.0); SODIUM 138 MMOL/L (135-145); TOTAL PROTEIN 7.2 GM/DL (6.4-8.2)
--- NOTE | 2020-10-06 16:51 | Diagnostic Imaging Report ---
INDICATION: COVID-19 positive. Shortness of breath. Cough and fever. COMPARISON: 06/14/2020. FINDINGS: There is consolidated infiltrate laterally in the right midlung. The lungs are well-aerated. Mild patchy infiltrate and atelectasis in left lung base. The heart is not enlarged. No pulmonary edema. No pneumothorax or pleural effusion. No bony abnormalities. IMPRESSION: Findings of bilateral pneumonia more severe laterally in the right midlung. Dictated by: Dictated on workstation # [id number]
== END ==
LOC: RAD FS 11:18
PROVIDERS: ATTEND Family Medicine
DX: U07.1 COVID-19 (principal); J12.89 Other viral pneumonia
CPT/HCPCS: 36415; 71046; 80053; 85025

== ENCOUNTER 2020-10-07 12:05 | Emergency (ER) | payer MEDICARE, OTHER ==
[~2020-10-07] VITALS: Ht 180.3 cm; Wt 102.5 kg
[~2020-10-07 12:05] MED LIST changes: -LEVO750T39 PO
[2020-10-07 13:51] LABS: BASOPHILS % (AUTO) 0 % (0-10); EOSINOPHILS # (AUTO) 0.1 10^3/uL (0.0-0.3); EOSINOPHILS % (AUTO) 1 % (0-10); HEMATOCRIT 39 % (40-54); LYMPHOCYTES # (AUTO) 1.1 10^3/uL (1.0-4.0); LYMPHOCYTES % (AUTO) 16 % (12-44); MEAN CORPUSCULAR HEMOGLOBIN 22 pg (25-34); MEAN CORPUSCULAR HGB CONC 31 g/dL (32-36); MEAN CORPUSCULAR VOLUME 73 fL (80-99); MEAN PLATELET VOLUME 9.2 fL (9.0-12.2); MONOCYTES # (AUTO) 0.7 10^3/uL (0.0-1.0); MONOCYTES % (AUTO) 9 % (0-12); NEUTROPHILS # (AUTO) 5.3 10^3/uL (1.8-7.8); NEUTROPHILS % (AUTO) 73 % (42-75); PLATELET COUNT 295 10^3/uL (130-400); WHITE BLOOD COUNT 7.2 10^3/uL (4.3-11.0)
[2020-10-07 13:53] LABS: CHLORIDE 103 MMOL/L (98-107); POTASSIUM 4.2 MMOL/L (3.6-5.0); SODIUM 137 MMOL/L (135-145)
[2020-10-07 13:55] LABS: CALCIUM 8.6 MG/DL (8.5-10.1); GLUCOSE 91 MG/DL (70-105)
[2020-10-07 13:57] LABS: CARBON DIOXIDE 20 MMOL/L (21-32)
[2020-10-07 13:59] LABS: CREATININE SERUM 1.01 MG/DL (0.60-1.30); GFR ESTIMATED > 60
[2020-10-07 14:00] LABS: BUN/CREATININE RATIO 12
--- NOTE | 2020-10-07 14:00 | ED Respiratory ---
General Chief Complaint: Respiratory Problems Stated Complaint: COVID + SOB, FEVER, COUGH Nursing Triage Note: Pt reports being diagnosed with COVID on 09/22; symptoms began 09/23. Pt reports PCP ordered a chest xray and pt was told pt has bilat pneumonia. Pt reports cough and fever. Source: patient Exam Limitations: no limitations History of Present Illness Date Seen by Provider: Oct 07, 2020 Time Seen by Provider: 13:20 Initial Comments 65-year-old male presents to the emergency room with a chief complaint of shortness of breath cough fevers. Was seen by his primary care physician within the last couple of days and had an outpatient chest x-ray and some labs done yesterday. Patient was called by his primary care physician and told that he has pneumonia in both of his lungs. He was sent to the emergency room for further evaluation and management. Patient tells me that he started having symptoms of coronavirus back around the but was not tested until several days later and did in fact, positive. It has been about 2 weeks since he has had the onset of symptoms and now is currently starting to run fever and feel a little bit worse. He denies any headache, sore throat, GI or symptoms. Primarily he is short of breath with cough. Review of the x-ray that was obtained as an outpatient yesterday shows a right lateral midlung infiltrate with patchy left basilar infiltrate. Patient clinically looks very well with oxygen saturations of 96 to 97% on room air. He is in no respiratory distress at this time. Timing/Duration: week Severity: moderate Allergies and Home Medications Allergies Coded Allergies: No Known Drug Allergies (Unverified , 11/10/17) Home Medications Allopurinol 100 Mg Tablet, 100 MG PO DAILY, (Reported) Amitriptyline HCl 100 Mg Tablet, 50 MG PO HS, (Reported) TAKES OF A 100MG Carvedilol 3.125 Mg Tablet, 3.125 MG PO BID WITH MEALS Prescribed by: JUNIOR SHAW on 06/18/20 1116 Clopidogrel Bisulfate 75 Mg Tablet, 75 MG PO DAILY, (Reported) Diazepam 10 Mg Tablet, 10 MG PO HS, (Reported) Ketoconazole 120 Ml Shampoo, 1 APPLIC TOP 3-4 TIMES WEEKLY PRN for SCALP RASH, (Reported) Krill/Om-3/Dha/Epa/Phospho/Ast 1 Each Capsule, 1 EACH PO DAILY, (Reported) Multivitamin 1 Each Tablet, 1 EACH PO DAILY, (Reported) Nitroglycerin 0.4 Mg Tab.subl, 0.4 MG SL UD PRN for CHEST PAIN, (Reported) Sacubitril/Valsartan 1 Each Tablet, 1 EACH PO BID, (Reported) Simvastatin 20 Mg Tablet, 20 MG PO HS, (Reported) Tamsulosin HCl 0.4 Mg Cap, 0.4 MG PO 1200, (Reported) Ubidecarenone 100 Mg Capsule, 100 MG PO DAILY@1200, (Reported) Patient Home Medication List Home Medication List Reviewed: Yes Review of Systems Review of Systems Constitutional: chills, fever EENTM: No nose congestion, No throat pain Respiratory: cough Cardiovascular: no symptoms reported Gastrointestinal: no symptoms reported Genitourinary: no symptoms reported Musculoskeletal: no symptoms reported Skin: no symptoms reported All Other Systems Reviewed Negative Unless Noted: Yes Past Itiyvpe-Ihgkrj-Aihasq Hx Patient Social History Alcohol Use: Occasionally Uses Number of Drinks Today: AA Alcohol Beverage of Choice: Beer Recreational Drug Use: No Smoking Status: Former Smoker Former Smoker, Quit: Nov 10, 1998 2nd Hand Smoke Exposure: No Recent Foreign Travel: No Contact w/Someone Who Travel: No Recent Infectious Disease Expo: No Recent Hopitalizations: No Immunizations Up To Date Tetanus Booster (TDap): Unknown PED Vaccines UTD: No Date of Pneumonia Vaccine: Jun 14, 2017 Date of Influenza Vaccine: Aug 30, 2017 Seasonal Allergies Seasonal Allergies: No Past Medical History Surgeries: Yes (L kidney removed, L hip replaced, L femur ORIF, L ankle, triston filter,) Renal Respiratory: No Cardiac: Yes (stents, CHF) High Cholesterol, Hypertension Neurological: Yes Neuropathy Reproductive Disorders: No Genitourinary: Yes (Left nephrectomy, renal cell carcinoma) Prostate Problems Gastrointestinal: Yes Diverticulosis Musculoskeletal: Yes Arthritis Endocrine: No HEENT: No Cancer: Yes Prostate, Kidney What Type of Treatment Did You: Radiation, Surgical Intervention Psychosocial: No Integumentary: No Blood Disorders: Yes (hx DVT) Family Medical History Copd FH: COPD (chronic obstructive pulmonary disease) 19 FATHER FH: diverticulitis FH: renal cell carcinoma 19 MOTHER Cancer, COPD, Diabetes Physical Exam Vital Signs - First Documented 10/07/20 12:28 Temp 36.4 Pulse 76 Resp 20 B/P (MAP) 142/79 (100) Pulse Ox 98 O2 Delivery Room Air Capillary Refill : Less Than 3 Seconds Height: 6'2.00" Weight: 254lbs. 0.0oz. [id number]; 31.00 BMI Method: General Appearance: WD/WN Eyes: Bilateral Eye Normal Inspection, Bilateral Eye PERRL, Bilateral Eye EOMI Neck: full range of motion, supple Respiratory: lungs clear, normal breath sounds, no respiratory distress, no accessory muscle use, other (Slightly coarse and wheezy with cough) Cardiovascular: normal peripheral pulses, regular rate, rhythm Gastrointestinal: non tender, soft Neurologic/Psychiatric: no motor/sensory deficits, alert, normal mood/affect Skin: normal color, warm/dry Progress/Results/Core Measures Suspected Sepsis Recent Fever Within 48 Hours: Yes Infection Criteria Present: Suspected New Infection New/Unexplained Altered Menta: No Sepsis Screen: No Definite Risk SIRS Temperature: Pulse: 76 Respiratory Rate: 20 Laboratory Tests 10/07/20 12:30: White Blood Count 7.2 Blood Pressure 142 /79 Mean: 100 Laboratory Tests 10/07/20 12:30: Creatinine 1.01, Platelet Count 295 Results/Orders Lab Results Laboratory Tests Test 10/07/20 12:30 Range/Units White Blood Count 7.2 4.3-11.0 10^3/uL Red Blood Count 5.36 4.30-5.52 10^6/uL Hemoglobin 12.0 L 13.3-17.7 g/dL Hematocrit 39 L 40-54 % Mean Corpuscular Volume 73 L 80-99 fL Mean Corpuscular Hemoglobin 22 L 25-34 pg Mean Corpuscular Hemoglobin Concent 31 L 32-36 g/dL Red Cell Distribution Width 17.2 H 10.0-14.5 % Platelet Count 295 130-400 10^3/uL Mean Platelet Volume 9.2 9.0-12.2 fL Immature Granulocyte % (Auto) 0 % Neutrophils (%) (Auto) 73 42-75 % Lymphocytes (%) (Auto) 16 12-44 % Monocytes (%) (Auto) 9 0-12 % Eosinophils (%) (Auto) 1 0-10 % Basophils (%) (Auto) 0 0-10 % Neutrophils # (Auto) 5.3 1.8-7.8 10^3/uL Lymphocytes # (Auto) 1.1 1.0-4.0 10^3/uL Monocytes # (Auto) 0.7 0.0-1.0 10^3/uL Eosinophils # (Auto) 0.1 0.0-0.3 10^3/uL Basophils # (Auto) 0.0 0.0-0.1 10^3/uL Immature Granulocyte # (Auto) 0.0 0.0-0.1 10^3/uL Sodium Level 137 135-145 MMOL/L Potassium Level 4.2 3.6-5.0 MMOL/L Chloride Level 103 98-107 MMOL/L Carbon Dioxide Level 20 L 21-32 MMOL/L Anion Gap 14 5-14 MMOL/L Blood Urea Nitrogen 12 7-18 MG/DL Creatinine 1.01 0.60-1.30 MG/DL Estimat Glomerular Filtration Rate > 60 BUN/Creatinine Ratio 12 Glucose Level 91 70-105 MG/DL Calcium Level 8.6 8.5-10.1 MG/DL C-Reactive Protein High Sensitivity 14.67 H 0.00-0.50 MG/DL Procalcitonin 0.05 <0.10 NG/ML My Orders Orders - PAL LLAMAS MD Cbc With Automated Diff (10/07/20 13:45) Basic Metabolic Panel (10/07/20 13:45) Hs C Reactive Protein (10/07/20 13:45) Procalcitonin (Pct) (10/07/20 13:45) Vital Signs/I&O 10/07/20 12:28 Temp 36.4 Pulse 76 Resp 20 B/P (MAP) 142/79 (100) Pulse Ox 98 O2 Delivery Room Air Capillary Refill : Less Than 3 Seconds Blood Pressure Mean: 100 Progress Note : Time: 13:58 Progress Note 65-year-old with bilateral pneumonia clinically who looks well. Plan is to repeat labs today to make sure that there is no significant change in them. If the labs are consistent we will send the patient home with a 5-day course of Levaquin 750. Patient can follow-up with his primary care physician after that. Patient is nontoxic-appearing, good oxygen saturations of 96 to 97% on room air. He is comfortable with the plan of care, all questions are sought and answered he is stable for discharge. Departure Impression Primary Impression: Pneumonia Qualified Codes: J18.9 - Pneumonia, unspecified organism Disposition: HOME, SELF-CARE Condition: Stable Departure-Patient Inst. Decision time for Depature: 14:45 Referrals: ELICIA MORALES MD (PCP/Family) Primary Care Physician Patient Instructions: Pneumonia, Adult (DC) Add. Discharge Instructions: I have prescribed you antibiotics to take for the next 5 days. Please take all of these until they are gone. Drink plenty of fluids to stay well-hydrated. Follow-up with your primary care doctor. Return to the emergency department for any worsening symptoms of shortness of breath, cough, high fever or other emergent concerns. Scripts Levofloxacin (Levofloxacin) 750 Mg Tablet 750 MG PO DAILY for 5 Days, #5 TAB Prov: PAL LLAMAS MD 10/07/20 PAL LLAMAS MD Oct 07, 2020 14:00
[2020-10-07] MEDS ORDERED: LEVO750T39 PO (14:46)
[2020-10-07 15:00] VITALS: BP 142/79
--- NOTE | 2020-10-07 15:00 | NUR ---
Pt ready to be discharged, however pt reports is in [place] and will be here in 30-45 minutes.
== END 2020-10-07 16:03 | disposition home or self-care (01) ==
LOC: EDUNIT# 12:05 → ER 12:07
DX: J18.9 Pneumonia, unspecified organism (principal); E78.00 Pure hypercholesterolemia, unspecified; I10 Essential (primary) hypertension; Z83.3 Family history of diabetes mellitus; Z80.51 Family history of malignant neoplasm of kidney; Z85.46 Personal history of malignant neoplasm of prostate; Z85.528 Personal history of other malignant neoplasm of kidney; Z87.891 Personal history of nicotine dependence
CPT/HCPCS: 36415; 80048; 84145; 85025; 86141

== ENCOUNTER 2021-06-14 04:21 | Emergency (ER) | payer MEDICARE, OTHER ==
[~2021-06-14] VITALS: Ht 188 cm; Wt 113.4 kg
[~2021-06-14 04:21] MED LIST changes: +LEVO750T39 PO
[2021-06-14 04:30] VITALS: BP 141/80
[2021-06-14] MEDS ORDERED: BENZONATATE 100 MG (TESSALON) CAPSULE PO ONE (04:38)
--- NOTE | 2021-06-14 04:39 | ED Cough/URI ---
General Stated Complaint: HIGH TEMP/COUGH History of Present Illness Date Seen by Provider: Jun 14, 2021 Time Seen by Provider: 04:30 Initial Comments 65-year-old male presents with cough, fever. Patient reports that he has had a cough for about a week. Feels like it is getting worse. He also reports that he had a fever of 103 at home today. Patient reports both him and his have the same thing. Patient reports that he is fully vaccinated for Covid. He denies any nausea, vomiting. He saw his primary care provider around 3 to 4 days ago and was told he has a "viral illness" and they would have to "ride it out" Allergies and Home Medications Allergies Coded Allergies: No Known Drug Allergies (Unverified , 11/10/17) Home Medications Allopurinol 100 Mg Tablet, 100 MG PO DAILY, (Reported) Amitriptyline HCl 100 Mg Tablet, 50 MG PO HS, (Reported) TAKES OF A 100MG Benzonatate 100 Mg Capsule, 100 MG PO Q8H PRN for COUGH Prescribed by: NABEEL FRANCE on 06/14/21 0446 Carvedilol 3.125 Mg Tablet, 3.125 MG PO BID WITH MEALS Prescribed by: JUNIOR SHAW on 06/18/20 1116 Clopidogrel Bisulfate 75 Mg Tablet, 75 MG PO DAILY, (Reported) Diazepam 10 Mg Tablet, 10 MG PO HS, (Reported) Ketoconazole 120 Ml Shampoo, 1 APPLIC TOP 3-4 TIMES WEEKLY PRN for SCALP RASH, (Reported) Krill/Om-3/Dha/Epa/Phospho/Ast 1 Each Capsule, 1 EACH PO DAILY, (Reported) Levofloxacin 750 Mg Tablet, 750 MG PO DAILY Prescribed by: PAL LLAMAS on 10/07/20 1446 Multivitamin 1 Each Tablet, 1 EACH PO DAILY, (Reported) Nitroglycerin 0.4 Mg Tab.subl, 0.4 MG SL UD PRN for CHEST PAIN, (Reported) Sacubitril/Valsartan 1 Each Tablet, 1 EACH PO BID, (Reported) Simvastatin 20 Mg Tablet, 20 MG PO HS, (Reported) Tamsulosin HCl 0.4 Mg Cap, 0.4 MG PO 1200, (Reported) Ubidecarenone 100 Mg Capsule, 100 MG PO DAILY@1200, (Reported) Patient Home Medication List Home Medication List Reviewed: Yes Review of Systems Review of Systems Constitutional: fever EENTM: no symptoms reported Respiratory: cough; No short of breath Cardiovascular: No chest pain, No palpitations Gastrointestinal: No abdominal pain, No nausea, No vomiting Genitourinary: no symptoms reported Musculoskeletal: no symptoms reported Skin: no symptoms reported Psychiatric/Neurological: No Symptoms Reported Hematologic/Lymphatic: No Symptoms Reported Past Npksors-Swdayq-Qwmwor Hx Immunizations Up To Date Tetanus Booster (TDap): Unknown PED Vaccines UTD: No Seasonal Allergies Seasonal Allergies: No Past Medical History Surgeries: Yes (L kidney removed, L hip replaced, L femur ORIF, L ankle, triston filter,) Renal Respiratory: No Cardiac: Yes (stents, CHF) High Cholesterol, Hypertension Neurological: Yes Neuropathy Reproductive Disorders: No Genitourinary: Yes (Left nephrectomy, renal cell carcinoma) Prostate Problems Gastrointestinal: Yes Diverticulosis Musculoskeletal: Yes Arthritis Endocrine: No HEENT: No Cancer: Yes Prostate, Kidney What Type of Treatment Did You: Radiation, Surgical Intervention Psychosocial: No Integumentary: No Blood Disorders: Yes (hx DVT) Family Medical History Copd FH: COPD (chronic obstructive pulmonary disease) 19 FATHER FH: diverticulitis FH: renal cell carcinoma 19 MOTHER Cancer, COPD, Diabetes Physical Exam Vital Signs - First Documented 06/14/21 04:30 Temp 36.8 Pulse 104 Resp 22 B/P (MAP) 141/80 (100) Pulse Ox 94 O2 Delivery Room Air Capillary Refill : Height: 6'2.00" Weight: 254lbs. 0.0oz. [id number]; 31.00 BMI Method: General Appearance: no apparent distress Eyes: Bilateral Eye Normal Inspection, Bilateral Eye PERRL HEENT: PERRL/EOMI Neck: full range of motion, normal inspection Respiratory: no respiratory distress, no accessory muscle use Cardiovascular: normal peripheral pulses, regular rate, rhythm Gastrointestinal: non tender, soft Neurologic/Psychiatric: alert, normal mood/affect, oriented x 3 Skin: normal color, warm/dry Progress/Results/Core Measures Suspected Sepsis SIRS Temperature: Pulse: Respiratory Rate: Blood Pressure / Mean: Results/Orders Lab Results Laboratory Tests Test 06/14/21 04:33 Range/Units My Orders Orders - NABEEL FRANCE L DO Benzonatate Capsule (Tessalon Perles) (06/14/21 04:45) Covid 19 Inhouse Test (06/14/21 04:34) Chest 1 View Ap/Pa Only (06/14/21 04:34) Benzonatate Capsule (Tessalon Perles) (06/14/21 04:38) Vital Signs/I&O 06/14/21 06/14/21 04:30 04:30 Temp 36.8 Pulse 104 Resp 22 B/P (MAP) 141/80 (100) Pulse Ox 94 O2 Delivery Room Air Room Air Capillary Refill : Progress Note : Progress Note Patient with a normal chest x-ray, discussed with patient that he has a viral illness and supportive care. I will prescribe him Tessalon Perles. Patient should follow-up with his primary care provider as needed Diagnostic Imaging Diagonstic Imaging: Xray Plain Films/CT/US/NM/MRI: chest Comments No acute changes, no infiltrate noted Reviewed: Reviewed by Me Departure Impression Primary Impression: Upper respiratory infection Qualified Codes: J06.9 - Acute upper respiratory infection, unspecified Disposition: HOME, SELF-CARE Condition: Stable Departure-Patient Inst. Referrals: ELICIA MORALES MD (PCP/Family) Primary Care Physician Patient Instructions: Viral Upper Respiratory Infection, Adult (DC) Add. Discharge Instructions: Drink plenty of fluids, get plenty of rest Follow-up with your primary care provider as needed Scripts Benzonatate (TESSALON PERLES) 100 Mg Capsule 100 MG PO Q8H PRN for COUGH, #15 CAP Prov: NABEEL FRANCE DO 06/14/21 NABEEL FRANCE DO Jun 14, 2021 04:39
[2021-06-14] MEDS ORDERED: BENZONATATE 100 MG (TESSALON) CAPSULE PO SCH (04:45)
[2021-06-14] MEDS ORDERED: BENZ100C18 PO (04:46)
--- NOTE | 2021-06-14 05:53 | Diagnostic Imaging Report ---
Clinical indication: Patient with cough. Concern for pneumonia. Exam: Portable chest x-ray upright view. Comparisons: Chest x-ray dated 10/06/2020. Findings: Lungs/pleura: There is interval development of minimal amorphous airspace opacities in left lung base which may represent atelectasis versus infiltrate. Remainder of the lungs are clear. There is no pneumothorax. There is no pleural effusion. Mediastinum: Unremarkable. Pulmonary vasculature: Unremarkable. Heart: Unremarkable. Bones/extrathoracic soft tissue: There are degenerative spurs involving the thoracic spine. Impression: There is interval development of minimal left basilar atelectasis versus infiltrate. Dictated by: Dictated on workstation # [id number]
== END 2021-06-14 04:53 | disposition home or self-care (01) ==
LOC: EDUNIT# 04:21 → ER FS 04:24
DX: J06.9 Acute upper respiratory infection, unspecified (principal); I11.0 Hypertensive heart disease with heart failure; I50.9 Heart failure, unspecified; E78.00 Pure hypercholesterolemia, unspecified; Z20.822 Contact with and (suspected) exposure to COVID-19; Z79.899 Other long term (current) drug therapy; Z79.01 Long term (current) use of anticoagulants
CPT/HCPCS: 71045; 87636

== ENCOUNTER 2021-09-07 09:40 | Emergency (ER) | payer MEDICARE, OTHER ==
[~2021-09-07] VITALS: Ht 185 cm; Wt 125.0 kg
[~2021-09-07 09:40] MED LIST changes: +BENZ100C18 PO
[2021-09-07] MEDS ORDERED: ASPIRIN 81 MG CHEW (CHILDREN'S ASA) PO STA (09:57)
--- NOTE | 2021-09-07 10:02 | ED Chest Pain ---
General Stated Complaint: CHEST PAIN Source: patient, old records History of Present Illness Date Seen by Provider: Sep 07, 2021 Time Seen by Provider: 09:42 Initial Comments 66-year-old male presenting with complaints of chest pain. He states he has had chest pain off and on since Monday. He had taken nitroglycerin Monday which helped the pain resolved but it also dropped his blood pressure. He was feeling okay yesterday but then had recurrent chest pain this morning. He states it seemed to be worse with exertion. He was having a sensation of indigestion as well as pain going into his neck. He states this feels similar to when he had to have stents placed in the past. He follows with cardiology at [facility] in [place] and sees Dr. Almazan. He has not felt well since he had Covid booster shot on Monday. He had some mild nausea this am but did not vomit. He denies fever, chills, abdominal pain, leg swelling. He does have shortness of breath with the pain. He reports having a Pavo Filter in his IVC due to left Femur Fracture in 2008 but was stopped on Warfarin in 2019 due to GI bleeding. Now just taking Plavix and aspirin. He does state the pains he has been experiencing off and on since Monday are similar to the pains and symptoms he had when he required stents. Timing/Duration: 2-3 days Severity/Quality: moderate, aching, ingestion, pressure Location: substernal, central Radiation: neck Activities at Onset: activity Prior CP/Workup: angina, cardiac cath, heart attack (2 stents), stress test Modifying Factors: improves with nitroglycerin, improves with rest ASA po CUPOLA CHARGER INSULATION: No NTG SL CUPOLA CHARGER INSULATION: No Associated Symptoms: No abdominal pain, No back pain, No diaphoresis, No dizziness, No edema, No fatigue, No fever/chills, No headache; heartburn, nausea/vomiting (nausea but no emesis); No rash; shortness of breath (when he has chest pain); No swelling/lump in chest, No syncope, No weakness Allergies and Home Medications Allergies Coded Allergies: No Known Drug Allergies (Unverified , 11/10/17) Patient Home Medication List Home Medication List Reviewed: Yes Allopurinol (Allopurinol) 100 Mg Tablet, 100 MG PO DAILY, (Reported) Entered as Reported by: KEREN CABRALES on 11/10/17 1213 Amitriptyline HCl (Amitriptyline HCl) 100 Mg Tablet, 50 MG PO HS, (Reported) Entered as Reported by: SLIME CONTEH on 06/15/20 1257 Benzonatate (Tessalon Perles) 100 Mg Capsule, 100 MG PO Q8H PRN for COUGH Prescribed by: NABEEL FRANCE on 06/14/21 0446 Carvedilol (Carvedilol) 3.125 Mg Tablet, 3.125 MG PO BID WITH MEALS Prescribed by: JUNIOR SHAW on 06/18/20 1116 Clopidogrel Bisulfate (Clopidogrel) 75 Mg Tablet, 75 MG PO DAILY, (Reported) Entered as Reported by: SLIME CONTEH on 06/15/20 1257 Diazepam (Diazepam) 10 Mg Tablet, 10 MG PO HS, (Reported) Entered as Reported by: KEREN CABRALES on 11/10/17 1213 Ketoconazole (Ketoconazole) 120 Ml Shampoo, 1 APPLIC TOP 3-4 TIMES WEEKLY PRN for SCALP RASH, (Reported) Entered as Reported by: SLIME CONTEH on 06/15/20 1257 Krill/Om-3/Dha/Epa/Phospho/Ast (Megared Stuart-3 Krill Oil Sfgl) 1 Each Capsule, 1 EACH PO DAILY, (Reported) Entered as Reported by: SLIME CONTEH on 06/15/20 1257 Levofloxacin (Levofloxacin) 750 Mg Tablet, 750 MG PO DAILY Prescribed by: PAL LLAMAS on 10/07/20 1446 Multivitamin (Multivitamins) 1 Each Tablet, 1 EACH PO DAILY, (Reported) Entered as Reported by: KEREN CABRALES on 11/10/17 1213 Nitroglycerin (Nitroglycerin) 0.4 Mg Tab.subl, 0.4 MG SL UD PRN for CHEST PAIN, (Reported) Entered as Reported by: KEREN CABRALES on 11/10/17 1213 Sacubitril/Valsartan (Entresto 24 mg-26 mg Tablet) 1 Each Tablet, 1 EACH PO BID, (Reported) Entered as Reported by: KEREN CABRALES on 11/10/17 1213 Simvastatin (Simvastatin) 20 Mg Tablet, 20 MG PO HS, (Reported) Entered as Reported by: KEREN CABRALES on 11/10/17 1213 Tamsulosin HCl (Flomax) 0.4 Mg Cap, 0.4 MG PO 1200, (Reported) Entered as Reported by: SLIME CONTEH on 06/15/20 1257 Ubidecarenone (Co Q-10) 100 Mg Capsule, 100 MG PO DAILY@1200, (Reported) Entered as Reported by: KEREN CABRALES on 11/10/17 1213 Review of Systems Review of Systems Constitutional: see HPI EENTM: No Symptoms Reported Respiratory: Cough (chronic cough in the morning for a few hours that he thinks might be allergy related) Cardiovascular: See HPI Gastrointestinal: See HPI Genitourinary: No Symptoms Reported Musculoskeletal: other (chronic pain and issues with legs due to radiation and prior fracture) Skin: No rash Psychiatric/Neurological: Denies Headache, Denies Numbness Hematologic/Lymphatic: Denies Blood Clots Past Stiucnt-Gbzfok-Fgbnqo Hx Immunizations Up To Date Tetanus Booster (TDap): Unknown PED Vaccines UTD: No Seasonal Allergies Seasonal Allergies: No Past Medical History Surgeries: Yes (L kidney removed, L hip replaced, L femur ORIF, L ankle, triston filter,) Coronary Stent (x2), Orthopedic, Renal Respiratory: No Cardiac: Yes (stents, CHF) Heart Attack, High Cholesterol, Hypertension Neurological: Yes Neuropathy Reproductive Disorders: No Genitourinary: Yes (Left nephrectomy, renal cell carcinoma) Prostate Problems Gastrointestinal: Yes Diverticulosis Musculoskeletal: Yes Arthritis Endocrine: No HEENT: No Cancer: Yes Prostate, Kidney What Type of Treatment Did You: Radiation, Surgical Intervention Psychosocial: No Integumentary: No Blood Disorders: Yes (hx DVT) Family Medical History Copd FH: COPD (chronic obstructive pulmonary disease) 19 FATHER FH: diverticulitis FH: renal cell carcinoma 19 MOTHER Cancer, COPD, Diabetes Physical Exam Vital Signs Vital Signs - First Documented 09/07/21 09:44 Temp 36.7 Pulse 82 Resp 14 B/P (MAP) 126/84 (98) Pulse Ox 95 O2 Delivery Room Air Capillary Refill : Height, Weight, BMI Height: 6'2.00" Weight: 254lbs. 0.0oz. 115.610562kc; 32.00 BMI Method: General Appearance: No Apparent Distress, WD/WN HEENT: PERRL/EOMI, Pharynx Normal Neck: Full Range of Motion, Normal Inspection, Non Tender, Supple Respiratory: Chest Non Tender, Lungs Clear, Normal Breath Sounds, No Accessory Muscle Use, No Respiratory Distress Cardiovascular: Regular Rate, Rhythm, Normal Peripheral Pulses Gastrointestinal: Normal Bowel Sounds, No Pulsatile Mass, Non Tender, Soft Extremity: Normal Capillary Refill, Normal Inspection, No Pedal Edema Neurologic/Psychiatric: Alert, Oriented x3 Skin: Normal Color, Warm/Dry Progress/Results/Core Measures Results/Orders Lab Results Laboratory Tests Test 09/07/21 09:47 09/07/21 11:39 Range/Units White Blood Count 5.8 4.3-11.0 10^3/uL Red Blood Count 5.56 H 4.30-5.52 10^6/uL Hemoglobin 16.8 13.3-17.7 g/dL Hematocrit 49 40-54 % Mean Corpuscular Volume 87 80-99 fL Mean Corpuscular Hemoglobin 30 25-34 pg Mean Corpuscular Hemoglobin Concent 35 32-36 g/dL Red Cell Distribution Width 13.8 10.0-14.5 % Platelet Count 226 130-400 10^3/uL Mean Platelet Volume 9.4 9.0-12.2 fL Immature Granulocyte % (Auto) 0 % Neutrophils (%) (Auto) 56 42-75 % Lymphocytes (%) (Auto) 28 12-44 % Monocytes (%) (Auto) 10 0-12 % Eosinophils (%) (Auto) 4 0-10 % Basophils (%) (Auto) 1 0-10 % Neutrophils # (Auto) 3.2 1.8-7.8 X 10^3 Lymphocytes # (Auto) 1.6 1.0-4.0 X 10^3 Monocytes # (Auto) 0.6 0.0-1.0 X 10^3 Eosinophils # (Auto) 0.3 0.0-0.3 10^3/uL Basophils # (Auto) 0.1 0.0-0.1 10^3/uL Immature Granulocyte # (Auto) 0.0 0.0-0.1 10^3/uL Prothrombin Time 12.9 12.2-14.7 SEC INR Comment 0.9 0.8-1.4 Activated Partial Thromboplast Time 27 24-35 SEC D-Dimer 1.01 H 0.00-0.49 UG/ML Sodium Level 139 135-145 MMOL/L Potassium Level 3.9 3.6-5.0 MMOL/L Chloride Level 103 98-107 MMOL/L Carbon Dioxide Level 23 21-32 MMOL/L Anion Gap 13 5-14 MMOL/L Blood Urea Nitrogen 14 7-18 MG/DL Creatinine 1.01 0.60-1.30 MG/DL Estimat Glomerular Filtration Rate 73 BUN/Creatinine Ratio 14 Glucose Level 141 H 70-105 MG/DL Calcium Level 9.2 8.5-10.1 MG/DL Corrected Calcium 9.3 8.5-10.1 MG/DL Magnesium Level 1.8 1.6-2.4 MG/DL Total Bilirubin 0.4 0.1-1.0 MG/DL Aspartate Amino Transf (AST/SGOT) 23 5-34 U/L Alanine Aminotransferase (ALT/SGPT) 19 0-55 U/L Alkaline Phosphatase 81 40-136 U/L Troponin I < 0.30 < 0.30 <0.30 NG/ML Total Protein 6.6 6.4-8.2 GM/DL Albumin 3.9 3.2-4.5 GM/DL Lipase 36 8-78 U/L My Orders Orders - RACHEL TITUS MD Cbc With Automated Diff (09/07/21 09:43) Magnesium (09/07/21 09:43) Ekg Tracing (09/07/21 09:43) Comprehensive Metabolic Panel (09/07/21 09:43) Protime With Inr (09/07/21 09:43) Partial Thromboplastin Time (09/07/21 09:43) O2 (09/07/21 09:43) Monitor-Rhythm Ecg Trace Only (09/07/21 09:43) Ed Iv/Invasive Line Start (09/07/21 09:43) Lipase (09/07/21 09:43) Troponin I Fs (09/07/21 09:43) Fibrin Degradation Products (09/07/21 09:43) Chest 1 View Ap/Pa Only (09/07/21 09:57) Aspirin Chewable Tablet (Baby Aspirin Ch (09/07/21 09:57) Ct Angio Chest W (09/07/21 10:39) Iohexol Injection (Omnipaque 350 Mg/Ml 1 (09/07/21 10:45) Received Contrast (Hold Metformin- Contr (09/07/21 10:45) Sodium Chloride Flush (Catheter Flush Sy (09/07/21 10:45) Ns (Ivpb) (Sodium Chloride 0.9% Ivpb Bag (09/07/21 10:45) Ns Iv 1000 Ml (Sodium Chloride 0.9%) (09/07/21 10:54) Troponin I Fs (09/07/21 11:30) Medications Given in ED Current Medications Medications Dose Ordered Sig/Lily Route Start Time Stop Time Status Last Admin Dose Admin Iohexol 100 ml ONCE ONCE IV 09/07/21 10:45 09/07/21 10:56 DC 09/07/21 11:14 100 ML Sodium Chloride 10 ml NEEDED PRN IV 09/07/21 10:45 09/07/21 11:14 10 ML Sodium Chloride 100 ml ONCE ONCE IV 09/07/21 10:45 09/07/21 10:56 DC 09/07/21 11:14 80 ML Vital Signs/I&O 09/07/21 09:44 Temp 36.7 Pulse 82 Resp 14 B/P (MAP) 126/84 (98) Pulse Ox 95 O2 Delivery Room Air Progress Progress Note #1: Progress Note Obtain electrocardiogram as well as blood work and chest x-ray. Ordered aspirin 324 mg. Patient states that after arrival to the ED his chest pain had resolved. He was not having any chest pain at the time of electrocardiogram. His electrocardiogram showed sinus rhythm with chronic Q waves for anterolateral infarct of indeterminate age. This appears stable from June 2020. Differential diagnosis is unstable angina, myocardial infarction, pulmonary embolism, pneumonia, GERD with esophagitis, CHF. Progress Note #2: Progress Note After initial evaluating the patient and placing orders he did advise staff that he had not been feeling well since Monday when he had a booster for his Covid vaccine. Progress Note #3: Time: 10:35 Progress Note CXR clear without acute significant abnormality. ECG stable from Jun 2020. Labs stable without acute significant abnormality and negative Troponin, but he did have DDimer of 1.01. Will add on CT scan of chest to evaluate for PE. Since he only has 1 kidney will give IVF to help flush out contrast and support his kidney. will plan on recheck of Troponin around 1130, about 2 hours post arrival. Once these results are back will check with Dr. Almazan about his symptoms concerning for unstable angina. Progress Note #4: Time: 11:[address] angiography of chest negative for PE or acute pulmonary process. He does have severe coronary artery calcifications. Awaiting repeat troponin. Progress Note #5: Time: 12:18 Progress Note Repeat Troponin is still <0.3. Pt remains chest pain free here, even when getting up to walk to the bathroom. Will try to contact Dr. Almazan at [facility] in [place] to see what he would recommend for the patient's staggered chest pain symptoms with negative troponin x 2 and no acute changes on ECG. Progress Note #6: Time: 12:30 Progress Note d/w Dr. Almazan from [facility] in [place]. he would like to see the patient for a stress test and states he can be seen this afternoon or afternoon in clinic in [place]. Will discharge pt from here and his is at a doctor appointment and when she gets back will head to Dr. Almazan's clinic in [place]. Initial ECG Impression Date: Sep 07, 2021 Initial ECG Impression Time: 09:39 Initial ECG Rate: 80 Initial ECG Rhythm: Normal Sinus Initial ECG Comparisson: Unchanged Comment Normal sinus rhythm with a heart rate of [address] elevation. [place] interval 165 ms. QT interval 382 ms with a QTc interval of 441 ms. Q waves in V2 through V6, 1, aVL for age-indeterminate anterolateral infarct. This is consistent with prior tracing from June 2020. Diagnostic Imaging Diagonstic Imaging: Xray Plain Films/CT/US/NM/MRI: chest Comments NAME: JO CUTLER MED REC#: [id number] PT STATUS: REG ER : 1955 PHYSICIAN: RACHEL TITUS MD ADMIT DATE: 09/07/21/ER FS Draft Date of Exam:09/07/21 CHEST 1 VIEW AP/PA ONLY CLINICAL INDICATION: Patient with chest pain. EXAM: Portable chest x-ray, upright view. COMPARISON: Chest x-ray dated 06/14/2021. FINDINGS: Lungs/pleura: There is interval slightly improved aeration of the left lung base; otherwise, the lungs are clear. There is no pneumothorax. There is no pleural effusion. Mediastinum: Unremarkable. Pulmonary vasculature: Unremarkable. Heart: Unremarkable. Bones/extrathoracic soft tissue: There are degenerative spurs involving the thoracic spine. IMPRESSION: There is no radiographic evidence of acute cardiopulmonary process. Dictated on workstation # [id number] Dict: 09/07/21 1008 Trans: 09/07/21 1011 [id number] Interpreted by: LAURENCE ACEVEDO MD Electronically signed by: Reviewed: Reviewed by Me Diagonstic Imaging: CT Plain Films/CT/US/NM/MRI: chest Comments NAME: JO CUTLER [facility] REC#: [id number] PT STATUS: REG ER : 1955 PHYSICIAN: RACHEL TITUS MD ADMIT DATE: 09/07/21/ER FS Signed Date of Exam:09/07/21 CT ANGIO CHEST W PROCEDURE: CT angiography Chest TECHNIQUE: After intravenous administration of contrast, thin section axial CT angiography of the chest was performed. 3D MIP reconstructions were made. All CT scans use one or more of the following dose optimizing techniques: automated exposure control, MA and/or KvP adjustment based on a patient size and exam type, or iterative reconstruction. INDICATION: Chest pain with elevated d-dimer COMPARISON: None available. FINDINGS: Vasculature: No pulmonary emboli. No CT evidence of pulmonary hypertension or right ventricular strain. The aorta is poorly opacified and therefore assessment for dissection is suboptimal. No aortic aneurysm. Heart and mediastinum: Visualized thyroid is normal. No supraclavicular, axillary, or intra-thoracic lymphadenopathy. The heart is normal in size without pericardial effusion. Severe coronary calcifications. Pleura: No pleural effusion or pneumothorax. Lungs and airway: No endoluminal lesion in the trachea or central bronchi. No pulmonary mass, nodule or consolidation. Upper abdomen: Cholelithiasis. No acute abnormality upper abdomen. Musculoskeletal: No concerning osseous lesion. IMPRESSION: 1. No acute cardiopulmonary process. Specifically, no pulmonary emboli or acute aortic syndrome. 2. Severe coronary artery calcifications. Dictated by: Dictated on workstation # [id number] Dict: 09/07/21 1129 Trans: 09/07/21 1143 [facility] [id number] Interpreted by: ANAMARIA GALVEZ MD Electronically signed by: ANAMARIA GALVEZ MD 09/07/21 1143 Reviewed: Reviewed by Me Departure Impression Primary Impression: Chest pain Qualified Codes: R07.9 - Chest pain, unspecified Additional Impression: Elevated d-dimer Disposition: 01 HOME, SELF-CARE Condition: Stable Departure-Patient Inst. Decision time for Depature: 12:59 Referrals: ELICIA MORALES MD (PCP/Family) Primary Care Physician Patient Instructions: Chest Pain, Adult ED Add. Discharge Instructions: Your heart tests and the CT scan of your chest today looked ok and did not show signs of an acute heart attack, blood clot in your lungs, fluid build up, pne umonia, or problem with the aorta (your main artery in the body). However, with your heart history and having calcium and plaque build up in your heart arteries, Dr. Almazan would like you to come have a stress test today in his clinic in [place] this afternoon. He said if today would not work he is in clinic on afternoon as well. Call his clinic at [phone] [facility] to see about the stress test. RACHEL TITUS MD Sep 07, 2021 10:02
--- NOTE | 2021-09-07 10:11 | Diagnostic Imaging Report ---
CLINICAL INDICATION: Patient with chest pain. EXAM: Portable chest x-ray, upright view. COMPARISON: Chest x-ray dated 06/14/2021. FINDINGS: Lungs/pleura: There is interval slightly improved aeration of the left lung base; otherwise, the lungs are clear. There is no pneumothorax. There is no pleural effusion. Mediastinum: Unremarkable. Pulmonary vasculature: Unremarkable. Heart: Unremarkable. Bones/extrathoracic soft tissue: There are degenerative spurs involving the thoracic spine. IMPRESSION: There is no radiographic evidence of acute cardiopulmonary process. Dictated by: Dictated on workstation # [id number]
[2021-09-07 10:28] LABS: FIBRIN DEGRADATION PRODUCTS 1.01 UG/ML (0.00-0.49); INR 0.9 (0.8-1.4); PROTHROMBIN TIME PATIENT 12.9 SEC (12.2-14.7)
[2021-09-07 10:29] LABS: BASOPHILS % (AUTO) 1 % (0-10); EOSINOPHILS % (AUTO) 4 % (0-10); HEMATOCRIT 49 % (40-54); HEMOGLOBIN 16.8 g/dL (13.3-17.7); LYMPHOCYTES # (AUTO) 1.6 X 10^3 (1.0-4.0); LYMPHOCYTES % (AUTO) 28 % (12-44); MEAN CORPUSCULAR HEMOGLOBIN 30 pg (25-34); MEAN CORPUSCULAR HGB CONC 35 g/dL (32-36); MEAN CORPUSCULAR VOLUME 87 fL (80-99); MEAN PLATELET VOLUME 9.4 fL (9.0-12.2); MONOCYTES % (AUTO) 10 % (0-12); NEUTROPHILS # (AUTO) 3.2 X 10^3 (1.8-7.8); NEUTROPHILS % (AUTO) 56 % (42-75); PLATELET COUNT 226 10^3/uL (130-400); WHITE BLOOD COUNT 5.8 10^3/uL (4.3-11.0)
[2021-09-07 10:30] LABS: BASOPHILS # (AUTO) 0.1 10^3/uL (0.0-0.1); EOSINOPHILS # (AUTO) 0.3 10^3/uL (0.0-0.3); MONOCYTES # (AUTO) 0.6 X 10^3 (0.0-1.0)
[2021-09-07 10:31] LABS: ALBUMIN 3.9 GM/DL (3.2-4.5); BILIRUBIN,TOTAL 0.4 MG/DL (0.1-1.0); CALCIUM 9.2 MG/DL (8.5-10.1); CREATININE SERUM 1.01 MG/DL (0.60-1.30); MAGNESIUM 1.8 MG/DL (1.6-2.4); POTASSIUM 3.9 MMOL/L (3.6-5.0); TOTAL PROTEIN 6.6 GM/DL (6.4-8.2)
[2021-09-07] MEDS ORDERED: CATHETER FLUSH 10 ML SYR IV PRN (10:45)
[2021-09-07] MEDS ORDERED: NS 100 ML (IVPB) BAG IV ONE (10:45)
[2021-09-07] MEDS ORDERED: HOLD METFORMIN - RECEIVED CONTRAST 20 ML VIAL IV SCH (10:45)
[2021-09-07] MEDS ORDERED: IOHEXOL 350 MG/ML 100 ML (OMNIPAQUE 350) VIAL IV ONE (10:45)
[2021-09-07] MEDS ORDERED: NS IV 1000 ML 1,000 ML IV STA (10:54)
--- NOTE | 2021-09-07 11:45 | Diagnostic Imaging Report ---
PROCEDURE: CT angiography Chest TECHNIQUE: After intravenous administration of contrast, thin section axial CT angiography of the chest was performed. 3D MIP reconstructions were made. All CT scans use one or more of the following dose optimizing techniques: automated exposure control, MA and/or KvP adjustment based on a patient size and exam type, or iterative reconstruction. INDICATION: Chest pain with elevated d-dimer COMPARISON: None available. FINDINGS: Vasculature: No pulmonary emboli. No CT evidence of pulmonary hypertension or right ventricular strain. The aorta is poorly opacified and therefore assessment for dissection is suboptimal. No aortic aneurysm. Heart and mediastinum: Visualized thyroid is normal. No supraclavicular, axillary, or intra-thoracic lymphadenopathy. The heart is normal in size without pericardial effusion. Severe coronary calcifications. Pleura: No pleural effusion or pneumothorax. Lungs and airway: No endoluminal lesion in the trachea or central bronchi. No pulmonary mass, nodule or consolidation. Upper abdomen: Cholelithiasis. No acute abnormality upper abdomen. Musculoskeletal: No concerning osseous lesion. IMPRESSION: 1. No acute cardiopulmonary process. Specifically, no pulmonary emboli or acute aortic syndrome. 2. Severe coronary artery calcifications. Dictated by: Dictated on workstation # [id number]
[2021-09-07 13:27] VITALS: BP 114/72
== END 2021-09-07 13:10 | disposition home or self-care (01) ==
LOC: EDUNIT# 09:40 → ER FS 09:41
DX: R07.9 Chest pain, unspecified (principal); R79.89 Other specified abnormal findings of blood chemistry; I25.2 Old myocardial infarction; I11.0 Hypertensive heart disease with heart failure; I50.9 Heart failure, unspecified; E78.00 Pure hypercholesterolemia, unspecified; Z79.01 Long term (current) use of anticoagulants; Z79.899 Other long term (current) drug therapy
CPT/HCPCS: 36415; 71045; 71275; 80053; 83690; 83735; 84484; 85025; 85379; 85610; 85730; 93005; 93041; 96360

== ENCOUNTER → 2022-01-24 | Outpatient (CLI) | payer MEDICARE, OTHER ==
--- NOTE | 2022-01-24 10:48 | Diagnostic Imaging Report ---
INDICATION: Right hip pain. 2 views of the right hip demonstrate superior-medial joint space narrowing compatible with osteoarthritic changes. The femoral head and neck are intact. No fractures are seen. Right-sided rami are intact. There are radiation seed implants within the prostate gland. IMPRESSION: Right hip degenerative change. No acute bony abnormality is detected. Dictated by: Dictated on workstation # [id number]
--- NOTE | 2022-01-24 10:51 | Diagnostic Imaging Report ---
INDICATION: Low back pain and right hip pain. TIME OF EXAM: 10:24 a.m. FINDINGS: Curvature and alignment of the lumbar spine is normal. Vertebral body heights are maintained. No acute compression fracture is seen. There is significant degenerative disc disease at the L4-L5 and L5-S1 levels where there is significant disc space narrowing and marginal spurring. There is significant lower lumbar facet arthropathy as well. Surgical clips in the left abdomen are noted. There is a filter in the inferior vena cava. Postop changes in the left hip are noted. IMPRESSION: Lumbar spondylosis. No acute bony abnormality is detected. Dictated by: Dictated on workstation # [id number]
--- NOTE | 2022-01-24 10:53 | Diagnostic Imaging Report ---
INDICATION: Pelvic pain and hip pain. Time Of Exam: 10:21 AM Right hip does show narrowing of the superior medial joint space consistent with degenerative change. The right femoral head and neck appear to be intact. There is extensive postsurgical changes to left hip. There is changes of arthroplasty. Separate hardware appears to transfix the left greater trochanter. Overall positioning is similar to the abdominal radiographs obtained on 06/14/2020. Radiation seed implants within the prostate gland are noted. No acute bony abnormality seen. SI joints and symphysis are not widened. IMPRESSION: Stable chronic and postsurgical changes. No acute feature is detected. Dictated by: Dictated on workstation # [id number]
== END ==
LOC: RAD FS 10:09
PROVIDERS: ATTEND Nurse Practitioner
DX: M47.816 Spondylosis without myelopathy or radiculopathy, lumbar region (principal); M16.11 Unilateral primary osteoarthritis, right hip
CPT/HCPCS: 72100; 72170; 73502

== ENCOUNTER 2022-03-02 05:33 | Outpatient (CLI) | payer MEDICARE, OTHER ==
[~2022-03-02] VITALS: Ht 185.4 cm; Wt 111.4 kg
[2022-03-02] MEDS ORDERED: AMOX-355 PO (11:32)
== END 2022-03-02 11:40 | disposition home or self-care (01) ==
LOC: PREOP 05:33
PROVIDERS: ATTEND Surgery
DX: Z01.818 Encounter for other preprocedural examination (principal)

== ENCOUNTER 2022-03-09 08:40 | Day surgery (SDC) | payer MEDICARE, OTHER ==
[2022-03-09] VITALS (12 sets, daily range): BP systolic 108–125; BP diastolic 70–88
[~2022-03-09] VITALS: Ht 185 cm; Wt 111.4 kg
[~2022-03-09 08:40] MED LIST changes: +AMOX-355 PO
[2022-03-09] MEDS ORDERED: ceFAZolin INJECTION 3,000 MG in NS (IVPB) 100 ML IV ONE (09:00)
--- NOTE | 2022-03-09 09:25 | Progress Note-Pre Operative ---
Pre-Operative Progress Note H&P Reviewed The H&P was reviewed, patient examined and no changes noted. Time Seen by Provider: 09:21 Date H&P Reviewed: March 09, 2022 Time H&P Reviewed: 09:21 Pre-Operative Diagnosis: Cholelithiasis/Cholecystitis ANGIE HADLEY DO March 09, 2022 09:25
[2022-03-09] MEDS ORDERED: proPOfol 200 MG/20 ML (DIPRIVAN) VIAL IV ONE (09:40)
[2022-03-09] MEDS ORDERED: LIDOCAINE PF 2% 5 ML (XYLOCAINE) VIAL ONE (09:40)
[2022-03-09] MEDS ORDERED: ROCURONIUM 50 MG/5 ML (ZEMURON) VIAL IV ONE (09:40)
[2022-03-09] MEDS ORDERED: MIDAZOLAM 2 MG/2 ML (VERSED) VIAL ONE (09:40)
[2022-03-09] MEDS ORDERED: fentaNYL INJ 100 MCG/2 ML AMP ONE (09:40)
[2022-03-09] MEDS ORDERED: ONDANSETRON 4 MG/2 ML (SDV) Z0FRAN ONE (09:40)
[2022-03-09] MEDS: LACTATED RINGERS 1,000 ML IV PRN ×2 (09:40→11:39)
[2022-03-09] MEDS ORDERED: LIDOCAINE/EPI 2% 1:100,00 (XYLOCAINE) 20 ML VIAL ONE (09:53)
[2022-03-09] MEDS ORDERED: NEOSTIGMINE 3 MG/3 ML VIAL ONE (11:02)
[2022-03-09] MEDS ORDERED: ATROPINE INJ 0.4 MG/ML SDV ONE (11:02)
[2022-03-09] MEDS ORDERED: GLYCOPYRROLATE 0.2 MG/ML (ROBINUL) 2 ML VIAL ONE (11:02)
--- NOTE | 2022-03-09 11:12 | Progress Note-Post Operative ---
Post-Operative Progess Note Surgeon (s)/Central Service Technician (s) Surgeon ANGIE HADLEY DO Central Service Technician: [place] Pre-Operative Diagnosis Cholelithiasis/Cholecystitis Post-Operative Diagnosis same plus adhesions Procedure & Operative Findings Date of Procedure 03/09/22 Procedure Performed/Findings PROCEDURE: Laparoscopic cholecystectomy with intraoperative cholangiogram. COMPLICATIONS: None. PROCEDURE: The patient was taken to the operating suite and was prepped and draped in sterile fashion. A surgical pause was performed. Just superior to the umbilicus, a 12 mm incision was made. Dissection was taken down to the fascia, which was then scored and grasped with a Jeyson and the abdomen was then entered. A 0 Vicryl suture was placed in a [id number] fashion and a Valladares trocar was placed and secured. Pneumoperitoneum was achieved. A 5mm trochar place in the subxyphoid and 2 in the right upper quadrant. The gallbladder was then grasped and elevated. The cystic duct, and cystic artery were then dissected out. Clip was placed on the distal portion of the cystic duct which was then partially transected. An arrow catheter was inserted into the duct. The cholangiogram was then performed. No filing defects and contrast made its way into the duodenum. Catheter removed. Clips were placed on proximal portion of the cystic duct and then the duct was then transected. Clips were placed along the proximal and distal portion of the cystic artery which was then transected. Hook cautery was used to dissect the gallbladder from the gallbladder fossa achieving hemostasis. The gallbladder was placed in an Endobag and removed through the 12 mm trocar site. The abdomen was then reinspected. Copious amounts of irrigation were used to irrigate the abdomen and there were no signs of active bleeding. Hemostasis had been achieved. The 12 mm fascial defect was then closed with 0 Vicryl suture that had been placed in a [id number] fashion. The abdomen was then desufflated, the trocars were removed. The abdomen was then washed and dried. The skin was then closed using 4-0 Monocryl in a subcuticular fashion. The abdomen was washed and dried and Skin Affix was place over incisions. Patient tolerated the procedure well without any complications and was taken to the recovery room in stable condition. Dr. Darling assisted on this case helping to make incisions, close incisions, identify anatomy and hold anatomy out of the way. Anesthesia Type GET Estimated Blood Loss Estimated blood loss (mL): scant Specimens/Packing Specimens Removed GB and contents ANGIE HADLEY DO March 09, 2022 11:12
[2022-03-09] MEDS ORDERED: ACHD5005 PO (11:13)
--- NOTE | 2022-03-09 11:14 | Discharge Inst-Surgical ---
Discharge Inst-Surgical Depart Medication/Instructions New, Converted or Re-Newed RX: Other (use home meds) Patient Instructions Follow up Appt: Make appointment for 1 week. [phone] Instructions: No lifting greater than 20 pounds. No strenuous activity. May shower in 24 hours, no tub bath or soaking. Use incentive spirometer at home as directed. No Smoking Skin/Wound Care: May remove bandages in am. You need to leave the Dermabond on incision it will fall off on it's own. Symptoms to Report: Appetite Changes, Extremity Discoloration, Numbness/Tingling, Swelling Increased, Bleeding Excessive, Eyesight Changes, Pain Increased, Urine Color Change, Constipation(Persistent), Fever over 101 degree F, Pain/Pressure in chest, Urinating Difficulty, Cough Up/Vomit Blood, Heart Beat Irreg/Pounding, Pain/Pressure in jaw, Cramps in feet or legs, Lightheadedness, Pain/Pressure in shoulder, Diarrhea(Persistent), Memory Changes Suddenly, Questions/Concerns, Weight gain consecutive days, Dizziness/Fainting, Nausea/Vomiting, Shortness of Breath, Weight gain over 2 pounds If questions or concerns contact your physician Or seek help at emergency department. Activity Activity as Tolerated: Yes Activity Instructions: Avoid Stress to Incision Driving Instructions: No Driving/Refer to Diet Discharge Diet: Avoid Fatty Foods, Low Fat/Low Cholesterol Diet After 24 Hours: Clear Liquid if Nauseous If Any Problems/Questions/Issu: Contact Your Physician, Go to Emergency Room Skin/Wound Care Infection Signs and Symptoms: Increased Redness, Foul Odor of Wound, Increased Drainage, Skin Itchy or Has a Rash, Increased Swelling, Temperature Above 101 F Wound Care Comment: heating pad to shoulder or neck for pain Bathing Instructions: Shower Stitches/[place]/Dermabond Dis: Dermabond Ice Pack: Ice On and Off Site ANGIE HADLEY DO March 09, 2022 11:14
[2022-03-09] MEDS ORDERED: SEVOFLURANE (ULTANE) 15 ML INHAL SOLN ONE (11:18)
[2022-03-09] MEDS ORDERED: MEPERIDINE (DEMEROL) INJ 50 MG/ML IVP ONE (11:30)
[2022-03-09] MEDS ORDERED: HYDROmorphone 2 MG/ML VIAL (DILAUDID) IV ONE (11:30)
[2022-03-09] MEDS ORDERED: PROMETHAZINE INJ 25 MG/ML (PHENERGAN) AMP IVP ONE (11:30)
[2022-03-09] MEDS ORDERED: fentaNYL INJ 100 MCG/2 ML AMP IVP ONE (11:30)
[2022-03-09] MEDS ORDERED: ONDANSETRON 4 MG/2 ML (SDV) Z0FRAN IVP PRN (11:30)
--- NOTE | 2022-03-09 11:43 | Diagnostic Imaging Report ---
Indication: Fluoroscopy during intraoperative cholangio-gram. Fluoroscopy was provided in the OR during intraoperative cholangiogram. 15 seconds of fluoroscopic time was utilized. 81 images were obtained. Images demonstrate contrast being injected via the cystic duct remnant. Intrahepatic and extra hepatic bile ducts are normal caliber. No filling defects are seen. There is flow of contrast into the duodenum. IMPRESSION: Fluoroscopy during intraoperative cholangiogram. Dictated by: Dictated on workstation # [id number]
--- NOTE | 2022-03-09 11:58 | Anesthesia-General Post-Op ---
General Patient Condition Mental Status/LOC: Same as Preop Cardiovascular: Satisfactory Nausea/Vomiting: Absent Respiratory: Satisfactory Pain: Controlled Complications: Absent Post Op Complications Complications None Follow Up Care/Instructions Patient Instructions None needed. Anesthesia/Patient Condition Patient Condition Patient is doing well, no complaints, stable vital signs, no apparent adverse anesthesia problems. No complications reported per nursing. NAVJOT MONTANEZ CRNA March 09, 2022 11:58
[2022-03-09] MEDS ORDERED: HYDROcodone/APAP 5 MG/325 MG (LORTAB) TAB ONE (12:28)
[2022-03-09] MEDS ORDERED: HYDROcodone/APAP 5 MG/325 MG (LORTAB) TAB PO ONE (12:30)
== END 2022-03-09 14:02 | disposition home or self-care (01) ==
LOC: SDC 08:40
PROVIDERS: ATTEND Surgery
DX: K80.10 Calculus of gallbladder with chronic cholecystitis without obstruction (principal); Z87.891 Personal history of nicotine dependence; Z79.01 Long term (current) use of anticoagulants
CPT/HCPCS: 76000; 87081; 88304

== ENCOUNTER 2022-04-27 12:55 | Inpatient (IN) | payer MEDICARE, OTHER ==
[~2022-04-27] VITALS: Ht 185.4 cm; Wt 111.4 kg
[~2022-04-27 12:55] MED LIST changes: +ACETAMINOPHEN 325 MG TABLET PO PRN; +ACHD5005 PO; +ALPRAZolam 0.25 MG (XANAX) TAB PO PRN; +ASPI-999 PO; +BISACODYL 10 MG SUPP (DULCOLAX) PR PRN; +CALCIUM CARBONATE 500 MG (TUMS) TAB.CHEW PO PRN; +CYCL10TA25 PO; +DOCUSATE SODIUM 100 MG (COLACE) CAP PO PRN; +FLEET ENEMA ADULT 1 EA BTL PR PRN; +GABA-486 PO; +KETO120S13 TP; +LACTULOSE SYRUP 10GM/15ML (ENULOSE) 30ML UDC PO PRN; +LOPERAMIDE 2 MG (IMODIUM) TABLET PO PRN; +MELATONIN 3 MG TABLET PO PRN; +MULT-1136 PO; +NALO4SPR3 NS; +ONDANSETRON 4 MG (ZOFRAN) ORAL DISSOLVE TAB PO PRN; +PANT40TA52 PO; +PSYL0.4C2 PO; +diphenhydrAMINE 25 MG TAB (BENADRYL) PO PRN; +guaiFENesin/CODEINE (ROBITUSSIN AC) 10ML UDC PO PRN
[2022-04-27 13:10] VITALS: BP 118/65
--- NOTE | 2022-04-27 13:50 | PM&R Post Admission Assessment ---
PM&R Date of Visit: Apr 27, 2022 Time of Visit: 13:30 History of Present Illness CC: Debility following right total hip arthroplasty HPI: This is a 66yoWM clinic patient of Dr Mijares who has a h/o CHF systolic dysfunction, renal cell cancer, PE s/p filter remotely and recent diverticular bleed 04/2020 when I cared for him during hospital stay who presents to the ARU in need of strengthening following and uncomplicated right total hip replacement by Dr Chawla at [facility]. He sees Cardiology in [place]. I reviewed all meds and restarted pain meds also. No report of urinary retention and we will maintain on bowel regimen. Past Scvlrnx-Horhje-Wjrlnc Hx Past Med/Social Hx: Reviewed Nursing Past Med/Soc Hx, Reviewed and Corrections made Patient Social History Marrital Status: Employed/Student: retired Alcohol Use: Occasionally Uses Alcohol Beverage of Choice: Beer Smoking Status: Former Smoker Former Smoker, Quit: Nov 10, 1998 2nd Hand Smoke Exposure: No Recent Hopitalizations: No Immunizations Up To Date Tetanus Booster (TDap): Unknown Pediatric: No Date of Pneumonia Vaccine: Jun 14, 2017 Date of Influenza Vaccine: Aug 30, 2021 Seasonal Allergies Seasonal Allergies: No Past Medical History Surgeries: Coronary Stent, Orthopedic, Renal Currently Using CPAP: No Currently Using BIPAP: No Cardiac: Heart Attack, High Cholesterol, Hypertension Neurological: Neuropathy Reproductive: No Genitourinary: Prostate Problems Gastrointestinal: Diverticulosis, Gall Bladder Disease Musculoskeletal: Arthritis Cancer: Prostate, Kidney What Type of Treatment Did You: Radiation, Surgical Intervention History of Blood Disorders: Yes (hx DVT) Family History Copd FH: COPD (chronic obstructive pulmonary disease) 19 FATHER FH: diverticulitis FH: renal cell carcinoma 19 MOTHER Cancer, COPD, Diabetes PM&R Allergy/Meds/Data Review Allergies Coded Allergies: No Known Drug Allergies (Unverified , 11/10/17) Home Medications Scheduled Allopurinol (Allopurinol), 100 MG PO 1300, (Reported) Aspirin (Aspirin), 81 MG PO DAILY, (Reported) Carvedilol (Carvedilol), 3.125 MG PO BID, (Reported) Clopidogrel Bisulfate (Clopidogrel), 75 MG PO DAILY, (Reported) Multivitamin (Multivitamin), 1 EACH PO DAILY, (Reported) Pantoprazole Sodium (Pantoprazole Sodium), 40 MG PO DAILY, (Reported) Psyllium Husk (Metamucil), 0.4 GM PO DAILY, (Reported) Sacubitril/Valsartan (Entresto 24 mg-26 mg Tablet), 1 EACH PO BID, (Reported) Simvastatin (Simvastatin), 20 MG PO 1800, (Reported) Tamsulosin HCl (Flomax), 0.4 MG PO 1200, (Reported) Ubidecarenone (Co Q-10), 100 MG PO DAILY, (Reported) Scheduled PRN Cyclobenzaprine HCl (Cyclobenzaprine HCl), 10 MG PO HS PRN for MUSCLE SPASMS, (Reported) Diazepam (Diazepam), 10 MG PO HS PRN for MUSCLE SPASMS, ANXIETY, (Reported) Gabapentin (Gabapentin), 100 MG PO HS PRN for PAIN-BREAKTHROUGH, (Reported) Hydrocodone/Acetaminophen (Hydrocodone-Acetamin 5-325 mg), 2 TAB PO Q6H PRN for PAIN-MODERATE (5-7), (Reported) Ketoconazole (Ketoconazole), 1 APPLIC TP DAILY PRN for SCALP IRRITATION, (Reported) Naloxone HCl (Naloxone HCl), 1 SPRAY NS UD PRN for OPIOID OVERDOSE, (Reported) Nitroglycerin (Nitroglycerin), 0.4 MG SL UD PRN for CHEST PAIN, (Reported) Discontinued Medications Allopurinol (Allopurinol), 100 MG PO DAILY, (Reported) Discontinued Reason: Duplicate Order Amoxicillin/Potassium Clav (Augmentin 500-125 Tablet), 875 MG PO UD, (Reported) Discontinued Reason: No Longer Taking Carvedilol (Carvedilol), 3.125 MG PO BID WITH MEALS Discontinued Reason: No Longer Taking Multivitamin (Multivitamins), 1 EACH PO DAILY, (Reported) Discontinued Reason: Duplicate Order Current Medications Current Medications Reviewed Review of Systems Constitutional: see HPI, malaise, weakness EENTM: no symptoms reported Respiratory: no symptoms reported Cardiovascular: no symptoms reported Gastrointestinal: no symptoms reported Genitourinary: no symptoms reported Musculoskeletal: back pain, joint pain Skin: no symptoms reported Psychiatric/Neurological: No Symptoms Reported All Other Systems Reviewed Negative Unless Noted: Yes Physical Exam Physical Exam Vital Signs Vital Signs - First Documented 04/27/22 13:10 Temp 36.0 Pulse 70 Resp 20 B/P (MAP) 118/65 (82) Pulse Ox 98 O2 Delivery Room Air Capillary Refill : Height, Weight, BMI Height: 6'2.00" Weight: 254lbs. 0.0oz. [id number]; 32.32 BMI Method: General Appearance: No Apparent Distress, WD/WN, Chronically ill Eyes: Bilateral Eye Normal Inspection, Bilateral Eye PERRL HEENT: PERRL/EOMI, Normal ENT Inspection, Pharynx Normal Neck: Full Range of Motion, Normal Inspection, Non Tender, Supple, Carotid Bruit Respiratory: Chest Non Tender, Lungs Clear, Normal Breath Sounds, No Accessory Muscle Use, No Respiratory Distress Cardiovascular: Regular Rate, Rhythm, No Edema, No Gallop, No JVD, No Murmur, Normal Peripheral Pulses Gastrointestinal: Normal Bowel Sounds, No Organomegaly, No Pulsatile Mass, Non Tender, Soft Back: Normal Inspection, No CVA Tenderness, No Vertebral Tenderness Extremity: Normal Capillary Refill, Normal Inspection, Normal Range of Motion (except right leg in immobilizer), Non Tender, No Calf Tenderness, No Pedal Edema Neurologic/Psychiatric: Alert, Oriented x3, No Motor/Sensory Deficits, Normal Mood/Affect, 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 Norm as Tested, Abnormal Gait, Motor Weakness (right leg) Skin: Normal Color, Warm/Dry Lymphatic: No Adenopathy PM&R Medical Assessment & Plan REHAB/MEDICAL ASSESSMENT AND PLAN: REHAB IMPAIRMENT GROUP: Debility following right hip replacement ETIOLOGIC DIAGNOSIS: Debility following right hip replacement The comorbidities that impact the patients function and/or functional outcome by: advanced age, CHF, CAD, immobilizer of right leg, h/o diverticular bleed, renal cell cancer REHAB PLAN: The patient is being admitted to our comprehensive inpatient rehabilitation facility and can tolerate the intensity of service consisting of at least: 180 minutes of therapy a day, 5 out of 7 days a week Rehab treatment will consist of: PT OT will focus on regaining function given the right leg immobilizer with crutches and high risk for falls in order to return back home The patient/family has a good understanding of our discharge process and will benefit from an interdisciplinary inpatient rehabilitation program. The patient has potential to make improvement and is in need of at least two of the following multidisciplinary therapies including but not limited to physical, occupational, speech, and prosthetics and orthotics. Additionally the patient will need services from respiratory, nutritional services, wound care, psychology, etc. (Customize this to each patient). Given the patients complex condition and risk of further medical complications, rehabilitation services cannot be safely or effectively provided at a lower level of care such as a assisted facility. BARRIERS TO DISCHARGE: CHF with debility ESTIMATED LOS: 7 days DISPOSITION: Home RELEVANT CHANGES SINCE PREADMISSION SCREENING: I have compared the patients medical and functional status at the time of the preadmission screening and there are: no changes PROGNOSIS: Good REHABILITATION GOALS: 1. PT OT will focus on regaining function given the right leg immobilizer with crutches and high risk for falls in order to return back home All the above goals were reviewed with the patient and he/she is in agreement. By signing this document, I acknowledge that I have personally performed a full physical examination on this patient within 24 hours of admission to this inpatient rehabilitation facility and have determined the patient to be able to tolerate the above course of treatment at an intensive level for a reasonable period of time. I will be completing a detailed individualized Plan of Care for this patient by day #4 of the patients stay based upon the Preadmission Screen, the Post-Admission Evaluation, and the therapy evaluations. Admission Dx/Comorbidities: (1) Hip joint replacement status ICD Codes: Z96.649 - Presence of unspecified artificial hip joint (2) History of pulmonary embolus (PE) ICD Codes: Z86.711 - Personal history of pulmonary embolism (3) Systolic CHF ICD Codes: I50.20 - Unspecified systolic (congestive) heart failure (4) CAD (coronary artery disease) ICD Codes: I25.10 - Atherosclerotic heart disease of [place] coronary artery without angina pectoris (5) Stented coronary artery ICD Codes: Z95.5 - Presence of coronary angioplasty implant and graft (6) Renal cell carcinoma ICD Codes: C64.9 - Malignant neoplasm of unspecified kidney, except renal pelvis (7) History of GI diverticular bleed ICD Codes: Z87.19 - Personal history of other diseases of the digestive system (8) BPH (benign prostatic hyperplasia) ICD Codes: N40.0 - Benign prostatic hyperplasia without lower urinary tract symptoms Assessment/Plan Assessment and Plan Assess & Plan/Chief Complaint Assessment: s/p right hip replacement Renal cell cancer hx CHF systolic dysfunction h/o diverticular bleed h/o PE remotely BPH HTN HLP Plan: OT PT per protocol Fall risk Home meds Pain meds BM regimen SHAW,JUNIOR DO Apr 27, 2022 13:49
[2022-04-27] MEDS ORDERED: RX-CYCLOBENZAPRINE 10 MG (FLEXERIL) TAB PPK#3 PO PRN (14:00)
[2022-04-27] MEDS ORDERED: NON-FORMULARY MEDICATION 1 EA EA (Ketoconazole 1 APPLIC) TP PRN (14:00)
[2022-04-27] MEDS ORDERED: NITROGLYCERIN 0.4 MG SL TABS BTL 25'S SL PRN (14:00)
[2022-04-27] MEDS ORDERED: GABAPENTIN 100 MG (NEURONTIN) CAP PO PRN (14:00)
[2022-04-27] MEDS ORDERED: CYCLOBENZAPRINE 10 MG (FLEXERIL) TAB PO PRN (14:00)
[2022-04-27] MEDS ORDERED: NON-FORMULARY MEDICATION 1 EA EA (Diazepam 10 MG) PO PRN (14:00)
--- NOTE | 2022-04-27 14:23 | Physical Therapy Evaluation ---
PT Evaluation-General Medical Diagnosis Admission Date Apr 27, 2022 at 12:55 Medical Diagnosis: right ALFA (anterior) Onset Date: Apr 25, 2022 Therapy Diagnosis Therapy Diagnosis: impaired mobility Height/Weight Height (Feet): 6 Height (Inches): 2.00 Weight (Pounds): 254 Weight (Ounces): 0.0 Weight Bear Status Right Lower Extremity: Right Weight Bearing/Tolerated Referral Physician: Nita Chavira DO Reason for Referral: Evaluation/Treatment Medical History Additional Medical History Past Medical History Surgeries: Coronary Stent, Orthopedic, Renal Currently Using CPAP: No Currently Using BIPAP: No Cardiac: Heart Attack, High Cholesterol, Hypertension Neurological: Neuropathy Reproductive: No Genitourinary: Prostate Problems Gastrointestinal: Diverticulosis, Gall Bladder Disease Musculoskeletal: Arthritis Cancer: Prostate, Kidney What Type of Treatment Did You: Radiation, Surgical Intervention History of Blood Disorders: Yes (hx DVT) Reviewed History: Yes Social History Current Living Status: Spouse Entry Into Home: Stairs Without Railing PT Steps Into Home: 2 Patient also has 3 steps to enter his home in the back Prior Prior Level of Function SCALE: Activities may be completed with or without assistive devices. 0-Ldeigzanly-lkfxqpo completes the activity by him/herself with no assistance from a helper. 5-Set-up or Clean-up Assistance-helper sets up or cleans up; patient completes activity. Mcewen assists only prior to or following the activity. 4-Supervision or Touching Assistance-helper provides verbal cues and/or to uching/steadying and/or contact guard assistance as patient completes activity. Assistance may be provided throughout the activity or intermittently. 3-Partial/Moderate Assistance-helper does LESS THAN HALF the effort. Mcewen lifts, holds or supports trunk or limbs, but provides less than half the effort. 2-Substantial/Maximal Assistance-helper does MORE THAN HALF the effort. Mcewen lifts or holds trunk or limbs and provides more than half the effort. 3-Addqoviwg-bghlsx does ALL the effort. Patient does none of the effort to complete the activity. Or, the assistance of 2 or more helpers is required for the patient to complete the activity. If activity was not attempted, code reason: 7-Patient Refused. 9-Not Applicable-not attempted and the patient did not perform the activity before the current illness, exacerbation or injury. 10-Not Attempted due to Environmental Limitations-(lack of equipment, weather restraints, etc.). 88-Not Attempted due to Medical Conditions or Safety Concerns. Bed Mobility: 6 Transfers (B,C,W/C): 6 Gait: 6 Stairs: 6 Indoor Mobility (Ambulation): Independent Stairs: Independent Prior Device Use: axillary crutches PT Evaluation-Current Subjective Patient in WC in room pre tx, agrees to PT, has minor pain in right hip. Will be co-treating with OT for part of tx due to poor patient mobility, strength, endurance, LLE weakness, coordinate UE and LE during activity, safety and reduce risk of falls. Pt/Family Goals to be independent at home Objective Patient Orientation: Person, Place, Situation Sensory Vision: Wears Glasses Hearing: Functional Sensation Right Lower Extremit: Intact Sensation Left Lower Extremity: Impaired Transfers Roll Left & Right (QC): 6 Sit to Lying (QC): 4 Lying to Sitting/Side of Bed(Q: 4 Sit to Stand (QC): 3 Chair/Bxu-ug-Emzia Xfer(QC): 4 Toilet Transfer (QC): 4 Car Transfer (QC): 4 Patient performs rolling with independence, supine <-> sit SBA, sit <-> stand min assist, transfers CGA, car transfer CGA. Patient needs occasional cues for positioning and safety. Patient wears a shoe lift on the left leg and a knee cage to prevent hyperextension. Patient has had medical issues with his left leg in the past and it is now his weaker leg, even after having surgery on the right leg. Gait Does the Patient Walk?: Yes Mode of Locomotion: Walk Anticipated Mode of Locomotion: Walk Walk 10 feet (QC): 4 Walk 50 ft with 2 Turns(QC): 4 Walk 150 ft (QC): 4 Walking 10ft/uneven surface-QC: 4 Distance: 150'x2, 100'x2 Gait Assistive Device: FWW Comments/Gait Description Patient can ambulate 150' with a rolling walker with CGA (including 50' with at least 2 turns of 90 degrees and 10' over an uneven surface), patient ambulates slow but steady, has dropfoot on the left side but real bad and he always makes a good effort to clear his foot, his toes didn't drag at all during tx. Wheelchair Training Does the Pt Use a Wheelchair?: No Wheel 50 ft with 2 turns (QC): 9 Wheel 150 ft (QC): 9 Stairs #of Steps: 1 1 Step (curb) (QC): 4 4 Steps (QC): 88 12 Steps (QC): 88 Walking Assistive Device: Walker Patient can go up and down 1 step using a rolling walker with CGA, cues for foot placement Balance Sitting Static: Normal Sitting Dynamic: Normal Standing Static: Fair Standing Dynamic: Fair Picking up an Object (QC): 4 (CGA using a generation engineering technologist) Treatment Patient also performed dressing and standing UE activity working on balance and LE endurance. PT performed bed mobility and transfers, ambulation, standing activity, standing and positioning during dressing, stair training, OT performed UE positioning and safety during activity, dressing, cues for safety and positi oning during activity. Assessment/Needs Patient in recliner post tx with nurse call, phone, tray, all needs met. Patient has impaired mobility, strength, endurance. He would like to transition to axillary crutches NAYELI because that is what he used previously and he was independent with them. Rehab Potential: Fair PT Short Term Goals Short Term Goals Time Frame: May 04, 2022 Roll Left & Right: 6 Sit to lyin Lying to sitting on side of be: 6 Sit to stand: 4 (CGA) Chair/rqf-jh-qyavb transfer: 4 (SBA) Walk 10 feet: 4 (SBA) Walk 50 feet with two turns: 4 (SBA) Walk 150 feet: 4 (SBA) PT [employer] Operations Consultant Goals Alf Goals PT [employer] Consultant Goals Time Frame: May 18, 2022 Roll Left & Right (QC): 6 Sit to Lying (QC): 6 Lying-Sitting on Side/Bed(QC): 6 Sit to Stand (QC): 4 (SBA) Chair/Omo-ne-Nexyq Xfer(QC): 6 Toilet Transfer (QC): 6 Car Transfer (QC): 6 Does the Patient Walk: Yes Walk 10 feet (QC): 6 Walk 50ft with 2 Turns (QC): 6 Walk 150 ft (QC): 6 Walking 10ft on Uneven Surface: 6 1 Step (curb) (QC): 4 4 Steps (QC): 4 12 Steps (QC): 88 Picking up an Object (QC): 6 Wheel 50 feet with 2 turns (QC: 9 Wheel 150 feet: 9 PT Plan Problem List Problem List: Activity Tolerance, Functional Strength, Safety, Balance, Gait, Transfer, Bed Mobility, ROM Treatment/Plan Treatment Plan: Continue Plan of Care Treatment Plan: Bed Mobility, Education, Functional Activity [place], Functional Strength, Group Therapy, Gait, Safety, Therapeutic Exercise, Transfers Treatment Duration: May 18, 2022 Frequency: At least 5 of 7 days/Wk (IRF) Estimated Hrs Per Day: 1.5 hours per day Patient and/or Family Agrees t: Yes Safety Risks/Education Patient Education: Gait Training, Transfer Techniques, Steps, Correct Positioning, Safety Issues Teaching Recipient: Patient Teaching Methods: Demonstration, Discussion Response to Teaching: Reinforcement Needed Discharge Recommendations Plan Patient will perform bed mobility and transfer training, balance and endurance training, functional strengthening, stair training, gait training, and education, to improve functional mobility and independence at home. Therapy Discharge Recommendati: Home & Family, Post Acute PT Time/GCodes Time In: 1255 Time Out: 1420 Total Billed Treatment Time: 75 Total Billed Treatment 1 visit EVM 10' FA 65' PT eval from [id number], OT eval from [id number], co-treat from [id number] SHAZIA PRUITT PT Apr 27, 2022 14:22
--- NOTE | 2022-04-27 14:24 | Occupational Therapy Eval ---
OT Evaluation-General/PLF Medical Diagnosis Admission Date Apr 27, 2022 at 12:55 Medical Diagnosis: R ALFA Onset Date: Apr 26, 2022 Therapy Diagnosis Therapy Diagnosis: reduced adl status Height/Weight Height (Feet): 6 Height (Inches): 2.00 Weight (Pounds): 254 Weight (Ounces): 0.0 Precautions Precautions/Isolations: Fall Prevention, Standard Precautions Comments anterior hip precautions Weight Bear Status Weight Bearing Restriction: Weight Bearing/Tolerated Location Restriction: R LE Referral Physician: Fan Referral Reason: Evaluation/Treatment Medical History Pertinent Medical History: Arthritis, CAD Additional Medical History Cancer of kidney, DVT, radiation therapy Current History S/p R ALFA Per patient, he lives with his in a single story home. He states he was indep with adls and shares iadl responsibilities with his spouse. He was using crutches prior to surgery. Pt has a knee cage on his L knee to prevent hyperxtension as well as a shoe lift to elevate height due to leg length discrepancy. Reviewed History: Yes Social History Home: Single Level Current Living Status: Spouse Entry Into Home: Stairs With Railing Steps Into Home: 3 ADL-Prior Level of Function SCALE: Activities may be completed with or without assistive devices. 7-Fynanoswkv-clkansl completes the activity by him/herself with no assistance from a helper. 5-Set-up or Clean-up Assistance-helper sets up or cleans up; patient completes activity. [place] assists only prior to or following the activity. 4-Supervision or Touching Assistance-helper provides verbal cues and/or touching/steadying and/or contact guard assistance as patient completes activity. Assistance may be provided throughout the activity or intermittently. 3-Partial/Moderate Assistance-helper does LESS THAN HALF the effort. [place] lifts, holds or supports trunk or limbs, but provides less than half the effort. 2-Substantial/Maximal Assistance-helper does MORE THAN HALF the effort. [place] lifts or holds trunk or limbs and provides more than half the effort. 7-Nubbrcuiv-pkapwd does ALL the effort. Patient does none of the effort to complete the activity. Or, the assistance of 2 or more helpers is required for the patient to complete the activity. If activity was not attempted, code reason: 7-Patient Refused. 9-Not Applicable-not attempted and the patient did not perform the activity before the current illness, exacerbation or injury. 10-Not Attempted due to Environmental Limitations-(lack of equipment, weather restraints, etc.). 88-Not Attempted due to Medical Conditions or Safety Concerns. Self Care: Independent Functional Cognition: Independent DME/Equipment: Bath Chair, Tub/Shower DME/Equipment Comments Pt owns a relief man, sock aid, and raised toilet seat Drive Self: Yes OT Current Status Subjective Pt denies pain, agreeable to evaluation. Co-treat with PT for part of session secondary to poor activity tolerance, high fall risk, and need of 2 skilled clinicians to progress indep and safety in adls and functional mobility Appearance Pt returned to sitting in recliner, all needs within reach at therapy departure. Mental Status/Objective Patient Orientation: Person, Place, Situation Current Glasses/Contacts: Yes Hearing Aids: No Hand Dominance: Left Upper Extremity ROM WNL Upper Extremity Strength WNL ADL-Treatment Eating (QC): 6 Oral Hygiene (QC): 5 (per clinical judgment) Shower/Bathe Self (QC): 3 (per clinical judgment) Upper Body Dressing (QC): 5 Lower Body Dressing (QC): 3 (min) On/Off Footwear (QC): 4 Toileting Hygiene (QC): 3 At OT arrival, Pt standing at toilet with physical therapy. While ambulating out of bathroom, OT notices a large urine stain on pants. Steadying assist needed to manage pants below hips. Pt able to wash niko area, buttocks and inner thighs with Min a for balance. OT educated pt on anterior hip precautions and to attend to pain tolerance during all LB bathing/dressing tasks. OT instructed pt on use of AE, but pt wanting to attempt without equipment first. No c/o pain when bending at waist or cross over method with L in order to don underwear/pants or socks over feet. With all sit/stands, pt has tendency to flex 90 degrees at hip, then exhibits difficulty extending trunk. Post demonstration and cues for performed method, pt with improved performance/independence in transfer. Min a needed for balance as he removes BUE support from walker. Cue to keep one hand on walker and alternate if needed when managing clothing over hips. Other Treatments Pt participated in standing therapeutic activity (pvc pipe) with focus on improving standing balance, posture, endurance, and reducing UE support needed during functional tasks. Initially steadying assist required but improves to supervision post cues for widening VICKEY. Min Assist to find correct pieces as pt did not have glasses currently available. No LOB during task. Pt ambulated to/from therapy gym with SBA-CGA and use of walker. Min cues for L foot clearance secondary to orthosis/shoe lift (for leg length discrepancy) and history of drop foot. Education OT Patient Education: Correct positioning, Purpose of tx/functional activities, Reviewed precautions, Rehab process, Safety issues, Transfer techniques, Use of adapted equipment Teaching Recipient: Patient Teaching Methods: Demonstration, Discussion Response to Teaching: Verbalize Understanding, Return Demonstration, Reinforcement Needed OT Short Term Goals Short Term Goals Time Frame: May 03, 2022 Eatin Oral hygiene: 6 Toileting hygiene: 4 Shower/bathe self: 4 Upper body dressin Lower body dressin Putting on/taking off footwear: 5 OT Jacquard Loom Fixer Goals Correction Goals Time Frame: May 10, 2022 Eating (QC): 6 Oral Hygiene (QC): 6 Toileting Hygiene (QC): 6 Shower/Bathe Self (QC): 5 Upper Body Dressing (QC): 6 Lower Body Dressing (QC): 6 On/Off Footwear (QC): 6 1=Demonstrate adherence to instructed precautions during ADL tasks. 2=Patient will verbalize/demonstrate understanding of assistive devices/modifications for ADL. 3=Patient will improve strength/tolerance for activity to enable patient to perform ADL's. OT Education/Plan Problem List/Assessment Assessment: Decreased Activ Tolerance, Impaired Funct Balance, Impaired I ADL's, Impaired Self-Care Skills Discharge Recommendations Plan/Recommendations: Continue POC Therapy Discharge Recommendati: Home & Family Comment pt owns necessary equipment Treatment Plan/Plan of Care Treatment,Training & Education: Yes Patient would benefit from OT for education, treatment and training to promote independence in ADL's, mobility, safety and/or upper extremity function for ADL's. Plan of Care: ADL Retraining, Functional Mobility, Group Exercise/Act as Ind, Orthotic Fitting/Training, UE Funct Exercise/Act Treatment Duration: May 10, 2022 Frequency: At least 5 of 7 days/Wk (IRF) Estimated Hrs Per Day: 1.5 hours per day (75-90 min/day ) Agreement: Yes Rehab Potential: Fair Time/GCodes Start Time: 13:05 Stop Time: 14:20 Total Time Billed (hr/min): 75 Billed Treatment Time 1 visit EVL (10 min) ADL x3 (45 min) FA (20 min) PT eval from [id number], OT eval from [id number], co-treat from [id number] Olga Sanders OT Apr 27, 2022 14:24
[2022-04-27] MEDS: polyethylene glycoL POWDER 17 GM (MIRALAX) PACK PO SCH ×3 (14:38→20:35)
[2022-04-27] MEDS: DOCUSATE SODIUM 100 MG (COLACE) CAP PO SCH ×3 (14:38→20:29)
[2022-04-27] MEDS: SENNA W/DOCUSATE (SENOKOT S) TABLET PO SCH ×3 (14:39→20:29)
--- NOTE | 2022-04-27 15:01 | ST Cognitive Linguistic Eval ---
Speech Evaluation-General Medical Diagnosis R ALFA Onset Date: Apr 26, 2022 Therapy Diagnosis Therapy Diagnosis: Intact Cognitive Linguistic Skills Precautions Precautions: Fall Precautions/Isolations: Fall Prevention, Standard Precautions Referral Referring Physician: Dr. Nita Chavira Reason for Referral: Evaluation/Treatment Medical History Pertinent Medical History: Arthritis, CAD Current History The patient is a 66 year-old male, who is status post a right total hip replacement. Reviewed History: Yes Social History Current Living Status: Spouse Speech PLF-Current Status Prior Level of Function The patient denied prior challenges or concerns with his speech, language, or cognition. Subjective The patient was seated upright in his recliner, awake and alert upon entrance to his room by the clinician. The patient greeted the clinician appropriately and was agreeable to participation in the cognitive linguistic assessment. The patient's remained at bedside throughout the evaluation. Language Eval: Auditory Comprehends Simple Yes/No Ques: Functional Indent/Objects Multiple Wisdom: Functional Ident/Pics in Multiple Wisdom: Functional Follows 1-Step Commands: Functional Follows Complex Directions: Functional Follows General Conversations: Functional Language Eval: Verbal Language Completes Spontaneous Greeting: Functional Produces Auto, Serial Info: Functional Imitates Simple Words/Phrases: Functional Word Finding: Functional Requests Basic Needs: Functional States Basic Personal Info: Functional Expresses Complex Ideas: Functional Language Evaluation: Reading Follows Simple Written Direct: Functional Language Evaluation: Writing Writes to Simple Dictation: Functional Cognitive Patient Orientation The patient was independently oriented to self, location, month, day of week, and date. Objective Cognitive Domain Attention: WNL Memory: WNL Problem Solving: Functional Executive Functions: WNL Visuospatial Skills: WNL Composite Severity Rating: WNL Clock Drawing Severity Rating: WNL Objective Formal/Standardized Tests [facility] Mental Status Exam (UMS) Results The patient demonstrated a result of +30/30 correlating to cognitive linguistic skills within normal limits. Oral Motor/Speech Production The patient does not demonstrate dysarthria or apraxia of speech. The patient remained 100% intelligible in known and unknown contexts. Impression The patient demonstrated cognitive linguistic skills within normal limits. Speech Patient Assess Expression of Ideas/Wants: Expression (4) Understanding Verbal Content: Understands (4) Brief Interview-Mental Status: Yes Repetition of Three Words: Three (3) Temporal Orientation: Year: Correct (3) Temporal Orientation: Month: Accurate within 5 days(2) Temporal Orientation: Day: Correct (1) Recall : Wear to say "Sock": Yes, no cue required (2) Recall : Color: Yes, no cue required (2) Recall : Bed: Yes, no cue required (2) Memory/Recall Ability: Current season, That he or she is in a hsp/hsp unit Speech-Plan Treatment Plan Speech Therapy Treatment Plan: Discontinue ST Treatment Duration: Apr 27, 2022 Frequency: 1 time per week Estimated Hrs Per Day: .5 hour per day Rehab Potential: Fair Pt/Family Agrees to Plan: Yes Safety Risks/Education Teaching Recipient: Patient, Family Teaching Methods: Discussion Response to Teaching: Verbalize Understanding Education Topics Provided: Results of CARLY, POC Time Speech Therapy Time In: 14:20 Speech Therapy Time Out: 14:50 Total Billed Time: 30 Billed Treatment Time 1, CELI BIRD ELIZABETH ST Apr 27, 2022 15:01
[2022-04-27] MEDS: ALLOPURINOL 100 MG (ZYLOPRIM) TAB PO SCH (17:13)
[2022-04-27] MEDS ORDERED: NON-FORMULARY MEDICATION 1 EA EA (Simvastatin 20 MG) PO SCH (18:00)
[2022-04-27] MEDS: AtorvaSTATin TABLET 10 MG TABLET PO SCH (18:15)
[2022-04-27 19:43] VITALS: BP 104/52
[2022-04-27] MEDS: SACUBITRIL/VALSARTAN 24/26 MG (ENTRESTO) TABLET PO SCH (20:29)
[2022-04-27] MEDS: DIAZEPAM 5 MG (VALIUM) TABLET PO PRN (22:34)
[2022-04-27] MEDS: HYDROcodone/APAP 5 MG/325 MG (LORTAB) TAB PO PRN (23:38)
[2022-04-28 06:03] LABS: BASOPHILS # (AUTO) 0.1 10^3/uL (0.0-0.1); BASOPHILS % (AUTO) 1 % (0-10); EOSINOPHILS # (AUTO) 0.1 10^3/uL (0.0-0.3); EOSINOPHILS % (AUTO) 1 % (0-10); HEMATOCRIT 37 % (40-54); HEMOGLOBIN 12.5 g/dL (13.3-17.7); LYMPHOCYTES # (AUTO) 1.9 10^3/uL (1.0-4.0); LYMPHOCYTES % (AUTO) 26 % (12-44); MEAN CORPUSCULAR HEMOGLOBIN 32 pg (25-34); MEAN CORPUSCULAR HGB CONC 34 g/dL (32-36); MEAN CORPUSCULAR VOLUME 92 fL (80-99); MEAN PLATELET VOLUME 9.7 fL (9.0-12.2); MONOCYTES # (AUTO) 0.8 10^3/uL (0.0-1.0); MONOCYTES % (AUTO) 11 % (0-12); NEUTROPHILS # (AUTO) 4.5 10^3/uL (1.8-7.8); NEUTROPHILS % (AUTO) 62 % (42-75); PLATELET COUNT 166 10^3/uL (130-400); WHITE BLOOD COUNT 7.3 10^3/uL (4.3-11.0)
[2022-04-28] MEDS: MULTIVIT W/MINERALS TAB (THERAGRAN M) PO SCH (06:09)
--- NOTE | 2022-04-28 06:13 | PM&R Progress Note ---
Subjective HPI/CC On Admission Date Seen by Provider: Apr 28, 2022 Time Seen by Provider: 10:30 Subjective/Events-last exam 04/28/2022: Patient doing well Home meds restarted Pain controlled BM small this am so will continue meds No falls Review of Systems General: Fatigue Musculoskeletal: leg pain Objective Exam Vital Signs Vital Signs Date Time Temp Pulse Resp B/P (MAP) Pulse Ox O2 Delivery O2 Flow Rate FiO2 04/28/22 20:00 Room Air 04/28/22 19:49 36.7 84 18 125/76 (92) 95 Capillary Refill : General Appearance: No Apparent Distress, WD/WN, Chronically ill HEENT: PERRL/EOMI, Normal ENT Inspection, Pharynx Normal Neck: Full Range of Motion, Normal Inspection, Non Tender, Supple, Carotid Bruit Respiratory: Chest Non Tender, Lungs Clear, Normal Breath Sounds, No Accessory Muscle Use, No Respiratory Distress Cardiovascular: Regular Rate, Rhythm, No Edema, No Gallop, No JVD, No Murmur, Normal Peripheral Pulses Gastrointestinal: Normal Bowel Sounds, No Organomegaly, No Pulsatile Mass, Non Tender, Soft Back: Normal Inspection, No CVA Tenderness, No Vertebral Tenderness Extremity: Normal Capillary Refill, Normal Inspection, Normal Range of Motion (except right leg in immobilizer), Non Tender, No Calf Tenderness, No Pedal Edema Neurologic/Psychiatric: Alert, Oriented x3, No Motor/Sensory Deficits, Normal Mood/Affect, register of deeds II-XII Norm as Tested, Abnormal Gait, Motor Weakness (right leg) Skin: Normal Color, Warm/Dry Lymphatic: No Adenopathy Results/Procedures Lab Patient resulted labs reviewed. FIM Transfers Therapy Code Descriptions/Definitions Functional [place] Measure: 0=Not Assessed/NA 4=Minimal Assistance 1=Total Assistance 5=Supervision or Setup 2=Maximal Assistance 6=Modified [place] 3=Moderate Assistance 7=Complete IndependenceSCALE: Activities may be completed with or without assistive devices. 6-Kofnvokcll-rycpqez completes the activity by him/herself with no assistance from a helper. 5-Set-up or Clean-up Assistance-helper sets up or cleans up; patient completes activity. [place] assists only prior to or following the activity. 4-Supervision or Touching Assistance-helper provides verbal cues and/or touching/steadying and/or contact guard assistance as patient completes activity. Assistance may be provided throughout the activity or intermittently. 3-Partial/Moderate Assistance-helper does LESS THAN HALF the effort. [place] lifts, holds or supports trunk or limbs, but provides less than half the effort. 2-Substantial/Maximal Assistance-helper does MORE THAN HALF the effort. [place] lifts or holds trunk or limbs and provides more than half the effort. 9-Snlrrsauc-planzg does ALL the effort. Patient does none of the effort to complete the activity. Or, the assistance of 2 or more helpers is required for the patient to complete the activity. If activity was not attempted, code reason: 7-Patient Refused. 9-Not Applicable-not attempted and the patient did not perform the activity before the current illness, exacerbation or injury. 10-Not Attempted due to Environmental Limitations-(lack of equipment, weather restraints, etc.). 88-Not Attempted due to Medical Conditions or Safety Concerns. Roll Left to Right (QC): 6 Sit to Lying (QC): 4 Sit to Stand (QC): 3 Chair/Nkb-xl-Arysk Xfer(QC): 4 Car Transfer (QC): 4 Gait Training Does the Patient Walk?: Yes Walk 10 feet (QC): 4 Walk 50 ft with 2 Turns(QC): 4 Walk 150 ft (QC): 4 Walking 10ft/uneven surface-QC: 4 Gait Assistive Device: FWW Wheelchair Training Does the Pt Use a Wheelchair?: No Wheel 50 ft with 2 turns (QC): 9 Wheel 150 ft (QC): 9 Stair Training #of Steps: 1 1 Step (curb) (QC): 4 4 Steps (QC): 88 12 Steps (QC): 88 Balance Picking up an Object (QC): 4 (CGA using a business representative) ADL-Treatment Eating (QC): 6 Oral Hygiene (QC): 5 (per clinical judgment) Shower/Bathe Self (QC): 3 (per clinical judgment) Upper Body Dressing (QC): 5 Lower Body Dressing (QC): 3 (min) On/Off Footwear (QC): 4 Toileting Hygiene (QC): 3 Assessment/Plan Assessment and Plan Assess & Plan/Chief Complaint Assessment: s/p right hip replacement Renal cell cancer hx CHF systolic dysfunction h/o diverticular bleed h/o PE remotely BPH HTN HLP Plan: OT PT per protocol Fall risk Home meds Pain meds BM regimen 04/28/2022: Home meds Pain meds (1) Hip joint replacement status (2) History of pulmonary embolus (PE) (3) Systolic CHF (4) CAD (coronary artery disease) (5) Stented coronary artery (6) Renal cell carcinoma (7) History of GI diverticular bleed (8) BPH (benign prostatic hyperplasia) JUNIOR SHAW DO Apr 28, 2022 06:13
[2022-04-28 06:24] LABS: ALBUMIN 2.9 GM/DL (3.2-4.5); POTASSIUM 3.9 MMOL/L (3.6-5.0)
[2022-04-28 06:25] LABS: CALCIUM 8.1 MG/DL (8.5-10.1)
[2022-04-28 06:28] LABS: BILIRUBIN,TOTAL 0.4 MG/DL (0.1-1.0)
[2022-04-28 06:30] LABS: CREATININE SERUM 0.85 MG/DL (0.60-1.30)
[2022-04-28 07:44] VITALS: BP 114/56
[2022-04-28] MEDS: SACUBITRIL/VALSARTAN 24/26 MG (ENTRESTO) TABLET PO SCH ×2 (08:37→20:03)
[2022-04-28] MEDS: SENNA W/DOCUSATE (SENOKOT S) TABLET PO SCH ×2 (08:37→20:04)
[2022-04-28] MEDS: ASPIRIN 81 MG CHEW (CHILDREN'S ASA) PO SCH (08:37)
[2022-04-28] MEDS: CLOPIDOGREL 75 MG (PLAVIX) TABLET PO SCH (08:37)
[2022-04-28] MEDS: PANTOPRAZOLE 40 MG (PROTONIX) TAB PO SCH (08:37)
[2022-04-28] MEDS: DOCUSATE SODIUM 100 MG (COLACE) CAP PO SCH ×2 (08:38→20:03)
[2022-04-28] MEDS: HYDROcodone/APAP 5 MG/325 MG (LORTAB) TAB PO PRN ×3 (08:38→22:39)
[2022-04-28] MEDS: PSYLLIUM POWDER (METAMUCIL) 5.8 GM PACKET PO SCH (08:39)
[2022-04-28] MEDS: polyethylene glycoL POWDER 17 GM (MIRALAX) PACK PO SCH ×2 (08:39→20:04)
[2022-04-28] MEDS ORDERED: NON-FORMULARY MEDICATION 1 EA EA (Ubidecarenone (Co Q-10) 100 MG) PO SCH (09:00)
[2022-04-28] MEDS ORDERED: NON-FORMULARY MEDICATION 1 EA EA (Multivitamin 1 EACH) PO SCH (09:00)
[2022-04-28] MEDS ORDERED: PSYLLIUM HUSK 0.4 GM PO SCH (09:00)
--- NOTE | 2022-04-28 09:08 | Physician Query Clarification ---
PQ-Intro New Diagnosis Admission/Discharge Admission Date: Apr 27, 2022 at 12:55 Discharge Date: Dr. Chavira, The medical record reflects the following clinical scenario: History/Risk Factors: s/p Rt THR, HTN, systolic CHF Clinical Findings: s/p Rt THR Treatment: IP Rehab Question: What condition best reflects the above clinical scenario? Please document a response in the Progress Noter or Discharge Summary. 1. osteoarthritis Rt Hip 2. pain Rt hip 3. Other, with explanation of the clinical findings. 4. Clinically undetermined, no explanation for the clinical findings. PHYSICIAN RESPONSE What condition reflects above: 1 In responding to this query, please exercise your independent professional judgment. The purpose of this communication is to more accurately reflect the complexity of your patients condition. The fact that a question is asked does not imply that any particular answer is desired or expected. Thank you for your timely response to this clarification. Requestors name: yTler THIS PHYSICIAN QUERY FORM IS A PERMANENT PART OF THE MEDICAL RECORD TYLER QUINTANA Apr 28, 2022 09:08 JUNIOR CHAVIRA DO Apr 28, 2022 10:56
--- NOTE | 2022-04-28 09:39 | Occupational Ther Daily Note ---
OT Current Status-Daily Note Subjective Pt reports constipation, RN aware, miralax given. Appearance Pt left sitting in recliner, all needs within reach. Mental Status/Objective Patient Orientation: Person, Place, Situation ADL-Treatment Therapy Code Descriptions/Definitions Functional [place] Measure: 0=Not Assessed/NA 4=Minimal Assistance 1=Total Assistance 5=Supervision or Setup 2=Maximal Assistance 6=Modified [place] 3=Moderate Assistance 7=Complete IndependenceSCALE: Activities may be completed with or without assistive devices. 8-Kozhfacfsu-ltxqsoi completes the activity by him/herself with no assistance from a helper. 5-Set-up or Clean-up Assistance-helper sets up or cleans up; patient completes activity. [place] assists only prior to or following the activity. 4-Supervision or Touching Assistance-helper provides verbal cues and/or touching/steadying and/or contact guard assistance as patient completes activity. Assistance may be provided throughout the activity or intermittently. 3-Partial/Moderate Assistance-helper does LESS THAN HALF the effort. [place] lifts, holds or supports trunk or limbs, but provides less than half the effort. 2-Substantial/Maximal Assistance-helper does MORE THAN HALF the effort. [place] lifts or holds trunk or limbs and provides more than half the effort. 8-Rgjycewer-pyupes does ALL the effort. Patient does none of the effort to complete the activity. Or, the assistance of 2 or more helpers is required for the patient to complete the activity. If activity was not attempted, code reason: 7-Patient Refused. 9-Not Applicable-not attempted and the patient did not perform the activity before the current illness, exacerbation or injury. 10-Not Attempted due to Environmental Limitations-(lack of equipment, weather restraints, etc.). 88-Not Attempted due to Medical Conditions or Safety Concerns. Eating (QC): 6 Oral Hygiene (QC): 4 Shower/Bathe Self (QC): 4 Upper Body Dressing (QC): 5 Lower Body Dressing (QC): 4 On/Off Footwear: 5 Toileting Hygiene (QC): 6 Toilet Transfer (QC): 4 Pt requesting to defer shower as he is fearful of getting incision wet. OT educated pt that incision would be covered, however pt wanting to wait the 7 days from when original bandage was put on (this would be 6/27/22)). Pt was agreeable to sponge bath. Post set up, he was able to wash all body parts without assist. Supervision only when standing to wash niko area/buttocks. No LOB or unsteadiness observed this date. Clothing donned seated in chair. Pt did not require any use of AE during adls. Supervision only when removing BUE support from walker. Mild unsteadiness and increased fatigue with prolong standing but no LOB exhibited. Education for energy conservation strategies. Other Treatment Pt reports that he does UB exercises 3x/week with 10-25 pound dumbbells. OT issued and instructed pt on theraband exercises (black-heavy resistance). He verbalizes that he does have weakness in shoulders from old rotator cuff injuries. Focus on strengthening rotator cuff/shoulder. Good strength and technique notable after initial instruction. 2x12, all planes. Pt reports feeling good at end of treatment. Education OT Patient Education: Correct positioning, Exercise program, Modified ADL techniques, Progress toward Goal/Update tx plan, Purpose of tx/functional activities, Reviewed precautions, Safety issues, Transfer techniques Teaching Recipient: Patient Teaching Methods: Demonstration, Discussion Response to Teaching: Verbalize Understanding, Return Demonstration, Reinforcement Needed OT Short Term Goals Short Term Goals Time Frame: May 03, 2022 Eatin Oral hygiene: 6 Toileting hygiene: 4 Shower/bathe self: 4 Upper body dressin Lower body dressin Putting on/taking off footwear: 5 OT Icer Hand Goals Halfway Goals Time Frame: May 10, 2022 Eating (QC): 6 Oral Hygiene (QC): 6 Toileting Hygiene (QC): 6 Shower/Bathe Self (QC): 5 Upper Body Dressing (QC): 6 Lower Body Dressing (QC): 6 On/Off Footwear (QC): 6 1=Demonstrate adherence to instructed precautions during ADL tasks. 2=Patient will verbalize/demonstrate understanding of assistive devices/modifications for ADL. 3=Patient will improve strength/tolerance for activity to enable patient to perform ADL's. OT Education/Plan Problem List/Assessment Assessment: Decreased Activ Tolerance, Impaired Funct Balance, Impaired I ADL's, Impaired Self-Care Skills Discharge Recommendations Plan/Recommendations: Continue POC Treatment Plan/Plan of Care Treatment,Training & Education: Yes Patient would benefit from OT for education, treatment and training to promote independence in ADL's, mobility, safety and/or upper extremity function for ADL's. Plan of Care: ADL Retraining, Functional Mobility, Group Exercise/Act as Ind, Orthotic Fitting/Training, UE Funct Exercise/Act Treatment Duration: May 10, 2022 Frequency: At least 5 of 7 days/Wk (IRF) Estimated Hrs Per Day: 1.5 hours per day (75-90 min/day ) Agreement: Yes Rehab Potential: Fair Time/GCodes Start Time: 08:00 Stop Time: 09:30 Total Time Billed (hr/min): 90 Billed Treatment Time 1 visit ADL x3 (50 min) EX x3 (40 min) Olga Sanders OT Apr 28, 2022 09:39
--- NOTE | 2022-04-28 10:31 | Physical Therapy Daily Note ---
PT Daily Note-Current Subjective Pt in recliner upon arrival and agrees to PT. Pain Numeric Pain Scale: 4 Location: Right Location Body Site: Hip Pain Description: Ache, Burning Mental Status Patient Orientation: Person, Place, Time, Situation Transfers SCALE: Activities may be completed with or without assistive devices. 8-Vowhhxfwws-muuegfj completes the activity by him/herself with no assistance from a helper. 5-Set-up or Clean-up Assistance-helper sets up or cleans up; patient completes activity. [place] assists only prior to or following the activity. 4-Supervision or Touching Assistance-helper provides verbal cues and/or touching/steadying and/or contact guard assistance as patient completes activity. Assistance may be provided throughout the activity or intermittently. 3-Partial/Moderate Assistance-helper does LESS THAN HALF the effort. [place] lifts, holds or supports trunk or limbs, but provides less than half the effort. 2-Substantial/Maximal Assistance-helper does MORE THAN HALF the effort. [place] lifts or holds trunk or limbs and provides more than half the effort. 9-Pqyfectqu-ttapvf does ALL the effort. Patient does none of the effort to comp lete the activity. Or, the assistance of 2 or more helpers is required for the patient to complete the activity. If activity was not attempted, code reason: 7-Patient Refused. 9-Not Applicable-not attempted and the patient did not perform the activity before the current illness, exacerbation or injury. 10-Not Attempted due to Environmental Limitations-(lack of equipment, weather restraints, etc.). 88-Not Attempted due to Medical Conditions or Safety Concerns. Sit to Stand (QC): 4 Weight Bearing Right Lower Extremity: Right Weight Bearing/Tolerated Gait Training Does the Patient Walk?: Yes Distance: 125' x 2 Walk 10 feet (QC): 5 Walk 50 ft with 2 Turns(QC): 4 Gait Persons Needed: 1 Gait Assistive Device: FWW Exercises Seated Therapy Exercises: Ankle pumps, Sit to stand, Long arc quads, Hamstring Curls, Glut set Seated Reps: [address] Ex=Flex, Abd, Ext, Side steps Standing Reps: 10 NuStep Minutes: 15 NuStep Workload: 4 Treatments Pt TFs from recliner and amb to therapy gym. Pt TFs to nustep and then amb to // bars and performs standing exs. Then pt requires a rest break and then pt performs LAQs and HS. Pt then amb back to room and TFs to recliner. Pt then performs rest of seated and supine exs. All needs met and call light nearby as PT departs. Assessment Current Status: Good Progress Pt requires cues for hand and foot placement during TFs. Required cues to not perform TFs w/ increased trunk flexion. PT Short Term Goals Short Term Goals Time Frame: May 04, 2022 Roll Left & Right: 6 Sit to lyin Lying to sitting on side of be: 6 Sit to stand: 4 (CGA) Chair/vht-tm-ukdbq transfer: 4 (SBA) Walk 10 feet: 4 (SBA) Walk 50 feet with two turns: 4 (SBA) Walk 150 feet: 4 (SBA) PT Fpc Goals Electrical Technology Instructor Goals PT Electrical Technology Instructor Goals Time Frame: May 18, 2022 Roll Left & Right (QC): 6 Sit to Lying (QC): 6 Lying-Sitting on Side/Bed(QC): 6 Sit to Stand (QC): 4 (SBA) Chair/Iqd-rm-Lnqak Xfer(QC): 6 Toilet Transfer (QC): 6 Car Transfer (QC): 6 Does the Patient Walk: Yes Walk 10 feet (QC): 6 Walk 50ft with 2 Turns (QC): 6 Walk 150 ft (QC): 6 Walking 10ft on Uneven Surface: 6 1 Step (curb) (QC): 4 4 Steps (QC): 4 12 Steps (QC): 88 Picking up an Object (QC): 6 Wheel 50 feet with 2 turns (QC: 9 Wheel 150 feet: 9 PT Plan Problem List Problem List: Activity Tolerance, Functional Strength Treatment/Plan Treatment Plan: Continue Plan of Care Treatment Plan: Bed Mobility, Education, Functional Activity Bay, Functional Strength, Group Therapy, Gait, Safety, Therapeutic Exercise, Transfers Treatment Duration: May 18, 2022 Frequency: At least 5 of 7 days/Wk (IRF) Estimated Hrs Per Day: 1.5 hours per day Patient and/or Family Agrees t: Yes Safety Risks/Education Patient Education: Gait Training, Transfer Techniques Teaching Recipient: Patient Teaching Methods: Discussion Response to Teaching: Return Demonstration Time/GCodes Time In: 930 Time Out: 1030 Total Billed Treatment Time: 60 Total Billed Treatment 1, Ex x 3 45min, GT 15min LAILA PICKETT UNEMPLOYMENT SPECIALIST Apr 28, 2022 10:31
--- NOTE | 2022-04-28 12:04 | Physical Therapy Daily Note ---
PT Daily Note-Current Subjective Pt in recliner upon arrival and agrees to PT. Would like to ambulate to loosen leg up. Pain Numeric Pain Scale: 2 Location: Right Location Body Site: Hip Mental Status Patient Orientation: Person, Place, Time, Situation Transfers SCALE: Activities may be completed with or without assistive devices. 1-Ykggvlxxdq-qpyqtul completes the activity by him/herself with no assistance from a helper. 5-Set-up or Clean-up Assistance-helper sets up or cleans up; patient completes activity. [place] assists only prior to or following the activity. 4-Supervision or Touching Assistance-helper provides verbal cues and/or touching/steadying and/or contact guard assistance as patient completes activity. Assistance may be provided throughout the activity or intermittently. 3-Partial/Moderate Assistance-helper does LESS THAN HALF the effort. [place] lifts, holds or supports trunk or limbs, but provides less than half the effort. 2-Substantial/Maximal Assistance-helper does MORE THAN HALF the effort. [place] lifts or holds trunk or limbs and provides more than half the effort. 1-Qkillktbr-fztxkx does ALL the effort. Patient does none of the effort to complete the activity. Or, the assistance of 2 or more helpers is required for the patient to complete the activity. If activity was not attempted, code reason: 7-Patient Refused. 9-Not Applicable-not attempted and the patient did not perform the activity before the current illness, exacerbation or injury. 10-Not Attempted due to Environmental Limitations-(lack of equipment, weather restraints, etc.). 88-Not Attempted due to Medical Conditions or Safety Concerns. Sit to Stand (QC): 4 Weight Bearing Right Lower Extremity: Right Weight Bearing/Tolerated Gait Training Does the Patient Walk?: Yes Distance: 225' x 2 Walk 10 feet (QC): 5 Walk 50 ft with 2 Turns(QC): 4 Walk 150 ft (QC): 4 Gait Persons Needed: 1 Gait Assistive Device: FWW Treatments Pt amb from room 225' and takes prolonged rest break and then pt amb back to room. All needs met and call light nearby as PT departs. Assessment Current Status: Good Progress Pt required cues for hand and foot placement during TFs and while making turns w/ FWW. PT Short Term Goals Short Term Goals Time Frame: May 04, 2022 Roll Left & Right: 6 Sit to lyin Lying to sitting on side of be: 6 Sit to stand: 4 (CGA) Chair/aer-ev-zqotf transfer: 4 (SBA) Walk 10 feet: 4 (SBA) Walk 50 feet with two turns: 4 (SBA) Walk 150 feet: 4 (SBA) PT Detention Goals Featheredge Machine Operator Goals PT Detention Goals Time Frame: May 18, 2022 Roll Left & Right (QC): 6 Sit to Lying (QC): 6 Lying-Sitting on Side/Bed(QC): 6 Sit to Stand (QC): 4 (SBA) Chair/Pqv-rm-Ypatf Xfer(QC): 6 Toilet Transfer (QC): 6 Car Transfer (QC): 6 Does the Patient Walk: Yes Walk 10 feet (QC): 6 Walk 50ft with 2 Turns (QC): 6 Walk 150 ft (QC): 6 Walking 10ft on Uneven Surface: 6 1 Step (curb) (QC): 4 4 Steps (QC): 4 12 Steps (QC): 88 Picking up an Object (QC): 6 Wheel 50 feet with 2 turns (QC: 9 Wheel 150 feet: 9 PT Plan Problem List Problem List: Activity Tolerance, Functional Strength Treatment/Plan Treatment Plan: Continue Plan of Care Treatment Plan: Bed Mobility, Education, Functional Activity Bay, Functional Strength, Group Therapy, Gait, Safety, Therapeutic Exercise, Transfers Treatment Duration: May 18, 2022 Frequency: At least 5 of 7 days/Wk (IRF) Estimated Hrs Per Day: 1.5 hours per day Patient and/or Family Agrees t: Yes Safety Risks/Education Patient Education: Gait Training, Transfer Techniques Teaching Recipient: Patient Teaching Methods: Discussion Response to Teaching: Return Demonstration Time/GCodes Time In: 1140 Time Out: 1155 Total Billed Treatment Time: 15 Total Billed Treatment 1, GT LAILA PICKETT SUPERINTENDENT TRACK Apr 28, 2022 12:04
[2022-04-28] MEDS: TAMSULOSIN 0.4 MG (FLOMAX) CAP PO SCH (12:22)
[2022-04-28] MEDS: ALLOPURINOL 100 MG (ZYLOPRIM) TAB PO SCH (12:23)
[2022-04-28] MEDS: AtorvaSTATin TABLET 10 MG TABLET PO SCH (17:41)
[2022-04-28 19:49] VITALS: BP 125/76
[2022-04-28] MEDS: GABAPENTIN 100 MG (NEURONTIN) CAP PO SCH (22:29)
[2022-04-29] MEDS: MULTIVIT W/MINERALS TAB (THERAGRAN M) PO SCH (06:33)
--- NOTE | 2022-04-29 06:48 | Individualized Plan of Care ---
Individualized Plan of Care Rehab Nursing IPOC Order Admission Date Apr 27, 2022 at 12:55 Current Orders Orders Admission Order(Inpt,Obs,Sdc) (04/26/22 17:40) Vital Signs: Per Unit Policy ( ,16,00 (04/26/22 17:40) Nicholas Coyne (04/26/22 17:40) Sequential Compression Device (04/26/22 17:40) Collection Advisor-Inpt Rehab Con (04/26/22 17:40) Rehab Nursing Orders-Ipoc (04/26/22 17:40) Physical Therapy Rehab Orders (04/26/22 17:40) Occupational Therapy Rehab Ord (04/26/22 17:40) Speech Therapy Rehab Orders (04/26/22 17:40) Cbc With Automated Diff (04/28/22 06:00) Comprehensive Metabolic Panel (04/28/22 06:00) Precautions (Aru) (04/26/22 17:40) Weekly Weight WEEK (04/26/22 17:40) Rehab-Intensity Of Therapy (04/26/22 17:40) Initiate Admission Nursing Pro .admission (04/26/22 17:40) Alprazolam Tablet (Xanax Tablet) (04/26/22 17:45) Calcium Carbonate Chew Tablet (Antacid C (04/26/22 17:45) Diphenhydramine Tablet (Benadryl Tablet) (04/26/22 17:45) Docusate Sodium Capsule (Colace Capsule) (04/26/22 21:00) Docusate Sodium Capsule (Colace Capsule) (04/26/22 17:45) Bisacodyl Suppository (Dulcolax Supposit (04/26/22 17:45) Lactulose Oral Solution (Enulose Oral So (04/26/22 17:45) Na Phos/Na Biphos Enema (Fleet Enema [place] (04/26/22 17:45) Guaifenesin/Codeine Syrup (Robitussin Ac (04/26/22 17:45) Loperamide Tablet (Imodium Tablet) (04/26/22 17:45) Melatonin Tablet (Melatonin Tablet) (04/26/22 17:45) Polyethylene Glycol Powder Pkt (Miralax (04/26/22 21:00) Ondansetron Oral Dissolve Tab (Zofran (04/26/22 17:45) Senna S Tablet (Senokot S Tablet) (04/26/22 21:00) Acetaminophen Tablet/Caplet (Tylenol T (04/26/22 17:45) Code/Resuscitation (04/26/22 17:40) Initiate Admission Nursing Pro .admission (04/26/22 17:40) Admission Arrival Bed Request (04/27/22 12:57) Aspirin Chewable Tablet (Baby Aspirin Ch (04/28/22 09:00) Carvedilol Tablet (Coreg Tablet) (04/27/22 21:00) Clopidogrel Tablet (Plavix Tablet) (04/28/22 09:00) Rx-Cyclobenzaprine Tablet (Rx-Flexeril T (04/27/22 14:00) Gabapentin Capsule/Tablet (Neurontin Cap (04/27/22 14:00) Hydrocodone/Apap 5/325 Tablet (Lortab 5 (04/27/22 14:00) Nitroglycerin 0.4 Mg Btl 25's (Nitrostat (04/27/22 14:00) Pantoprazole Tablet (Protonix Tablet) (04/28/22 09:00) Sacubitril/Valsartan 24/26 Mg (Entresto (04/27/22 21:00) Tamsulosin Capsule (Flomax Capsule) (04/28/22 12:00) (Nf) Diazepam (04/27/22 14:00) (Nf) Ketoconazole (04/27/22 14:00) (Nf) Multivitamin (04/28/22 09:00) (Nf) Psyllium Husk (Metamucil) (04/28/22 09:00) (Nf) Simvastatin (04/27/22 18:00) (Nf) Ubidecarenone (Co Q-10) (04/28/22 09:00) Allopurinol Tablet (Zyloprim Tablet) (04/27/22 14:00) Atorvastatin Tablet (Lipitor Tablet) (04/27/22 18:00) Therapeutic Multivitamin Tab (Vitamins, (04/28/22 07:00) Cyclobenzaprine Tablet (Flexeril Tablet) (04/27/22 14:00) Psyllium Powder (Metamucil Powder) (04/28/22 09:00) Diazepam Tablet (Valium Tablet) (04/27/22 14:15) Patient Visit (04/27/22 ) Pt Eval Moderate Complexity (04/27/22 ) Functional Activities, Ea 15 (04/27/22 ) Patient Visit (04/27/22 ) Speech Sound Lang Comp (04/27/22 ) Treat. Speech/Lang/Voice (04/27/22 ) General/Regular (04/27/22 Dinner) Follow-Up Appointment (04/27/22 17:30) Follow-Up Appointment (04/27/22 17:30) Gabapentin Capsule/Tablet (Neurontin Cap (04/28/22 21:00) Patient Visit (04/28/22 ) Exercise Therap, Ea 15 Min (04/28/22 ) Gait Training, Ea 15 Min (04/28/22 ) Exercise Therap, Ea 15 Min (04/28/22 ) Rehab Nursing Orders: Ongoing Assess. of Cognitive Status, Ongoing Assess. of Function Status, Bladder Management, Bladder Scan, Bladder Training, Bowel Management, Bowel Training, Disease Management & Educaiton, DVT Prophylaxis, Fall Prevention, Fluid/Electrolyte/Nutrition Mgmt, Infection Prevention, Medication Management & Education, Management of Risks & Complications, Management of Skin Intergrity, Nutrition Management, Pain Management, Patient/Family Support, Safety Management, Weight Bearing Precaution, Wound Management Intensity of Therapy to be met Patient to be seen: Min.3h per day/5 of 7d PT IPOC Problem List: Activity Tolerance, Functional Strength Treatment Plan: Continue Plan of Care Bed Mobility, Education, Functional Activity Bay, Functional Strength, Group Therapy, Gait, Safety, Therapeutic Exercise, Transfers Treatment Duration: May 18, 2022 Frequency: At least 5 of 7 days/Wk (IRF) Estimated Hrs Per Day: 1.5 hours per day OT IPOC Problems: Decreased Activ Tolerance, Impaired Funct Balance, Impaired I ADL's, Impaired Self-Care Skills OT Treatment, Training and Edu: Yes Plan of Care: ADL Retraining, Functional Mobility, Group Exercise/Act as Ind, Orthotic Fitting/Training, UE Funct Exercise/Act Treatment Duration: May 10, 2022 Frequency: At least 5 of 7 days/Wk (IRF) Estimated Hrs Per Day: 1.5 hours per day (75-90 min/day ) ST IPOC Speech Therapy Treatment Plan: Discontinue ST Treatment Duration: Apr 27, 2022 Frequency: 1 time per week Estimated Hrs Per Day: .5 hour per day Collection Advisor/Case Mgmt Collection Advisor/Case Managemen: Discharge Planning Dietitian/Digital Media Analyst Dietitian/Digital Media Analyst to monitor nutritional status and make changes and/or recommendations as needed and work with speech pathology on dietary upgrades as the occur. Physician IPOC Medical Issues being managed closely and that require the 24 hour availability of a physician: CAD and CHF hx with diverticular bleed 2 yrs ago will require close monitoring of BP and labs levels to prevent decompensation Medical Issues: Bowel/Bladder Function, DVT Prophylaxis, Falls Precautions, Fluid/Electrolyte/Nutrition Balance, Infection Protection, Pain Management, Weight Bearing Precautions, Wound Care Brief Synthesis of Preadmission Screen, Post-Admission Evaluation, and Therapy Evaluations: PT OT will focus on regaining independence with use of assistive devices and training to prevent fall risk in order to return back home with . Medical Prognosis: Good Anticipated Length of Stay: 7 days JUNIOR SHAW DO Apr 29, 2022 06:48
[2022-04-29 07:31] VITALS: BP 108/58
[2022-04-29] MEDS: SACUBITRIL/VALSARTAN 24/26 MG (ENTRESTO) TABLET PO SCH ×2 (08:06→22:00)
[2022-04-29] MEDS: CLOPIDOGREL 75 MG (PLAVIX) TABLET PO SCH (08:06)
[2022-04-29] MEDS: SENNA W/DOCUSATE (SENOKOT S) TABLET PO SCH ×2 (08:06→22:00)
[2022-04-29] MEDS: DOCUSATE SODIUM 100 MG (COLACE) CAP PO SCH ×2 (08:06→22:00)
[2022-04-29] MEDS: PANTOPRAZOLE 40 MG (PROTONIX) TAB PO SCH (08:06)
[2022-04-29] MEDS: ASPIRIN 81 MG CHEW (CHILDREN'S ASA) PO SCH (08:06)
[2022-04-29] MEDS: HYDROcodone/APAP 5 MG/325 MG (LORTAB) TAB PO PRN ×2 (08:07→21:07)
[2022-04-29] MEDS: PSYLLIUM POWDER (METAMUCIL) 5.8 GM PACKET PO SCH (08:07)
[2022-04-29] MEDS: polyethylene glycoL POWDER 17 GM (MIRALAX) PACK PO SCH ×2 (08:42→21:58)
--- NOTE | 2022-04-29 09:29 | Occupational Ther Daily Note ---
OT Current Status-Daily Note Subjective Pt denies pain, agreeable to shower this date. Appearance Pt left sitting in recliner, all needs within reach at OT departure. Mental Status/Objective Patient Orientation: Person, Place, Situation ADL-Treatment Therapy Code Descriptions/Definitions Functional [place] Measure: 0=Not Assessed/NA 4=Minimal Assistance 1=Total Assistance 5=Supervision or Setup 2=Maximal Assistance 6=Modified [place] 3=Moderate Assistance 7=Complete IndependenceSCALE: Activities may be completed with or without assistive devices. 3-Cyyqrbtzpn-epakqud completes the activity by him/herself with no assistance from a helper. 5-Set-up or Clean-up Assistance-helper sets up or cleans up; patient completes activity. [place] assists only prior to or following the activity. 4-Supervision or Touching Assistance-helper provides verbal cues and/or touching/steadying and/or contact guard assistance as patient completes activity. Assistance may be provided throughout the activity or intermittently. 3-Partial/Moderate Assistance-helper does LESS THAN HALF the effort. [place] lifts, holds or supports trunk or limbs, but provides less than half the effort. 2-Substantial/Maximal Assistance-helper does MORE THAN HALF the effort. [place] lifts or holds trunk or limbs and provides more than half the effort. 4-Buyariajw-dcqwqp does ALL the effort. Patient does none of the effort to complete the activity. Or, the assistance of 2 or more helpers is required for the patient to complete the activity. If activity was not attempted, code reason: 7-Patient Refused. 9-Not Applicable-not attempted and the patient did not perform the activity before the current illness, exacerbation or injury. 10-Not Attempted due to Environmental Limitations-(lack of equipment, weather restraints, etc.). 88-Not Attempted due to Medical Conditions or Safety Concerns. Eating (QC): 6 Oral Hygiene (QC): 6 Shower/Bathe Self (QC): 5 Upper Body Dressing (QC): 6 Lower Body Dressing (QC): 6 On/Off Footwear: 6 Toileting Hygiene (QC): 6 Toilet Transfer (QC): 6 Shower performed; majority completed in sitting. OT covered Incision/bandage prior to shower; C/D/I post task. Pt able to wash all body parts without assistance, no cues needed for safety. Clothing donned seated on edge of shower bench. No use of AE needed, Extra time for LB dressing only. Pt ambulated to/from tub room with Supervision and use of walker. Pt exhibits an abnormal gait but reports this is his baseline secondary to L knee cage and shoe lift. Post instruction/demonstration, pt completed tub transfer x4 (tub transfer bench x2, shower chair x2). No physical assistance required, verbal cues for sequ encing only. At end of treatment, Pt verbalizes that he prefers tub transfer bench. Discussion on where to purchase and average cost. Education OT Patient Education: Correct positioning, Energy conservation, Modified ADL t echniques, Progress toward Goal/Update tx plan, Purpose of tx/functional activities, Rehab process, Transfer techniques Teaching Recipient: Patient Teaching Methods: Demonstration, Discussion Response to Teaching: Verbalize Understanding, Return Demonstration OT Short Term Goals Short Term Goals Time Frame: May 03, 2022 Eatin Oral hygiene: 6 Toileting hygiene: 4 Shower/bathe self: 4 Upper body dressin Lower body dressin Putting on/taking off footwear: 5 OT Shelter Goals Shelter Goals Time Frame: May 10, 2022 Eating (QC): 6 Oral Hygiene (QC): 6 Toileting Hygiene (QC): 6 Shower/Bathe Self (QC): 5 Upper Body Dressing (QC): 6 Lower Body Dressing (QC): 6 On/Off Footwear (QC): 6 1=Demonstrate adherence to instructed precautions during ADL tasks. 2=Patient will verbalize/demonstrate understanding of assistive devices/modifications for ADL. 3=Patient will improve strength/tolerance for activity to enable patient to perform ADL's. OT Education/Plan Problem List/Assessment Assessment: Decreased Activ Tolerance, Impaired Funct Balance, Impaired I ADL's Discharge Recommendations Plan/Recommendations: Continue POC Equpiment Recommendations-D/C: Extended Bath Bench Treatment Plan/Plan of Care Treatment,Training & Education: Yes Patient would benefit from OT for education, treatment and training to promote independence in ADL's, mobility, safety and/or upper extremity function for ADL's. Plan of Care: ADL Retraining, Functional Mobility, Group Exercise/Act as Ind, Orthotic Fitting/Training, UE Funct Exercise/Act Treatment Duration: May 10, 2022 Frequency: At least 5 of 7 days/Wk (IRF) Estimated Hrs Per Day: 1.5 hours per day (75-90 min/day ) Agreement: Yes Rehab Potential: Fair Time/GCodes Start Time: 08:00 Stop Time: 09:30 Total Time Billed (hr/min): 90 Billed Treatment Time 1 visit ADL x4 (60 min) FA x2 (30 min) Olga Sanders OT Apr 29, 2022 09:29
--- NOTE | 2022-04-29 11:35 | PM&R Progress Note ---
Subjective HPI/CC On Admission Date Seen by Provider: Apr 29, 2022 Time Seen by Provider: 11:15 Subjective/Events-last exam 04/29/2022: Patient doing well Still need to work on strengthening the leg muscles and assuring he has no acute decompensation Wants to go home but he needs more work and he understands that 04/28/2022: Patient doing well Home meds restarted Pain controlled BM small this am so will continue meds No falls Review of Systems General: Fatigue, Malaise Musculoskeletal: leg pain Objective Exam Vital Signs Vital Signs Date Time Temp Pulse Resp B/P (MAP) Pulse Ox O2 Delivery O2 Flow Rate FiO2 04/29/22 20:04 37.0 75 18 118/64 (82) 98 Room Air Capillary Refill : General Appearance: No Apparent Distress, WD/WN, Chronically ill HEENT: PERRL/EOMI, Normal ENT Inspection, Pharynx Normal Neck: Full Range of Motion, Normal Inspection, Non Tender, Supple, Carotid Bruit Respiratory: Chest Non Tender, Lungs Clear, Normal Breath Sounds, No Accessory Muscle Use, No Respiratory Distress Cardiovascular: Regular Rate, Rhythm, No Edema, No Gallop, No JVD, No Murmur, Normal Peripheral Pulses Gastrointestinal: Normal Bowel Sounds, No Organomegaly, No Pulsatile Mass, Non Tender, Soft Back: Normal Inspection, No CVA Tenderness, No Vertebral Tenderness Extremity: Normal Capillary Refill, Normal Inspection, Normal Range of Motion (except right leg in immobilizer), Non Tender, No Calf Tenderness, No Pedal Edema Neurologic/Psychiatric: Alert, Oriented x3, No Motor/Sensory Deficits, Normal Mood/Affect, electronic prepress system operator II-XII Norm as Tested, Abnormal Gait, Motor Weakness (right leg) Skin: Normal Color, Warm/Dry Lymphatic: No Adenopathy Results/Procedures Lab Patient resulted labs reviewed. FIM Transfers Therapy Code Descriptions/Definitions Functional [place] Measure: 0=Not Assessed/NA 4=Minimal Assistance 1=Total Assistance 5=Supervision or Setup 2=Maximal Assistance 6=Modified [place] 3=Moderate Assistance 7=Complete IndependenceSCALE: Activities may be completed with or without assistive devices. 9-Txcmfqeqsx-tjlsgag completes the activity by him/herself with no assistance from a helper. 5-Set-up or Clean-up Assistance-helper sets up or cleans up; patient completes activity. [place] assists only prior to or following the activity. 4-Supervision or Touching Assistance-helper provides verbal cues and/or touching/steadying and/or contact guard assistance as patient completes activity. Assistance may be provided throughout the activity or intermittently. 3-Partial/Moderate Assistance-helper does LESS THAN HALF the effort. [place] lifts, holds or supports trunk or limbs, but provides less than half the effort. 2-Substantial/Maximal Assistance-helper does MORE THAN HALF the effort. [place] lifts or holds trunk or limbs and provides more than half the effort. 7-Asfbyfvwr-bedywd does ALL the effort. Patient does none of the effort to complete the activity. Or, the assistance of 2 or more helpers is required for the patient to complete the activity. If activity was not attempted, code reason: 7-Patient Refused. 9-Not Applicable-not attempted and the patient did not perform the activity before the current illness, exacerbation or injury. 10-Not Attempted due to Environmental Limitations-(lack of equipment, weather restraints, etc.). 88-Not Attempted due to Medical Conditions or Safety Concerns. Roll Left to Right (QC): 6 Sit to Lying (QC): 4 Sit to Stand (QC): 4 Chair/Mxo-gb-Eqmwr Xfer(QC): 4 Car Transfer (QC): 4 Gait Training Does the Patient Walk?: Yes Distance: 225' x 2 Walk 10 feet (QC): 5 Walk 50 ft with 2 Turns(QC): 4 Walk 150 ft (QC): 4 Walking 10ft/uneven surface-QC: 4 Gait Persons Needed: 1 Gait Assistive Device: FWW Wheelchair Training Does the Pt Use a Wheelchair?: No Wheel 50 ft with 2 turns (QC): 9 Wheel 150 ft (QC): 9 Stair Training #of Steps: 1 1 Step (curb) (QC): 4 4 Steps (QC): 88 12 Steps (QC): 88 Balance Picking up an Object (QC): 4 (CGA using a head of conservation) ADL-Treatment Eating (QC): 6 Oral Hygiene (QC): 6 Shower/Bathe Self (QC): 5 Upper Body Dressing (QC): 6 Lower Body Dressing (QC): 6 On/Off Footwear (QC): 6 Toileting Hygiene (QC): 6 Toilet Transfer (QC): 6 Assessment/Plan Assessment and Plan Assess & Plan/Chief Complaint Assessment: s/p right hip replacement Renal cell cancer hx CHF systolic dysfunction h/o diverticular bleed h/o PE remotely BPH HTN HLP Plan: OT PT per protocol Fall risk Home meds Pain meds BM regimen 04/28/2022: Home meds Pain meds 04/29/2022: Aggressive PT OT Assure no decompensation occurs (1) Hip joint replacement status (2) History of pulmonary embolus (PE) (3) Systolic CHF (4) CAD (coronary artery disease) (5) Stented coronary artery (6) Renal cell carcinoma (7) History of GI diverticular bleed (8) BPH (benign prostatic hyperplasia) JUNIOR SHAW DO Apr 29, 2022 11:35
--- NOTE | 2022-04-29 11:43 | Physical Therapy Daily Note ---
PT Daily Note-Current Subjective Pt. agrees to Rx, shares his medical history with this GROUP BILLING COORDINATOR that GROUP BILLING COORDINATOR has just reviewed on chart. Pt. sharing "no feeling " on LLE , need for total knees bilat, prior left femur # as well as left THR secondary to mets from L renal CA. "I know a fall would be really bad right now but my wants me to use these crutches" Pt. requests to try steps and explains what his steps are like at home and how he approached them Pain Location: No Pain Reported Mental Status Patient Orientation: Normal For Age Attachments: Other-See Comments (knee cage left, Even up utilized on left shoe) Transfers SCALE: Activities may be completed with or without assistive devices. 7-Iofmptjkac-rypqpop completes the activity by him/herself with no assistance from a helper. 5-Set-up or Clean-up Assistance-helper sets up or cleans up; patient completes activity. [place] assists only prior to or following the activity. 4-Supervision or Touching Assistance-helper provides verbal cues and/or touching/steadying and/or contact guard assistance as patient completes activity. Assistance may be provided throughout the activity or intermittently. 3-Partial/Moderate Assistance-helper does LESS THAN HALF the effort. [place] lifts, holds or supports trunk or limbs, but provides less than half the effort. 2-Substantial/Maximal Assistance-helper does MORE THAN HALF the effort. [place] lifts or holds trunk or limbs and provides more than half the effort. 2-Xhhopwwtt-jxlnwg does ALL the effort. Patient does none of the effort to complete the activity. Or, the assistance of 2 or more helpers is required for the patient to complete the activity. If activity was not attempted, code reason: 7-Patient Refused. 9-Not Applicable-not attempted and the patient did not perform the activity before the current illness, exacerbation or injury. 10-Not Attempted due to Environmental Limitations-(lack of equipment, weather restraints, etc.). 88-Not Attempted due to Medical Conditions or Safety Concerns. Roll Left & Right (QC): 6 Sit to Lying (QC): 6 Lying to Sitting/Side of Bed(Q: 6 Sit to Stand (QC): 6 Chair/Zha-pt-Ughye Xfer(QC): 6 Weight Bearing Right Lower Extremity: Right Weight Bearing/Tolerated Gait Training Does the Patient Walk?: Yes Walk 10 feet (QC): 4 Walk 50 ft with 2 Turns(QC): 4 Walk 150 ft (QC): 4 Gait Persons Needed: 1 Gait Assistive Device: FWW slow, antalgic, high steppage gait left partly because even up is catching at toe and on floor, severe hyperextension at L knee despite cage. Heavy wt bearing on FWW noted, good step length Stair Training Stair Training: Handrails/: 2 handrails #of Steps: 4 4 Steps (QC): 4 Stairs: Pattern: Step to Pt. at home has only one rail but for initial stairs trial bilat rails were used. Pt. using R LE for ascending wt bearing LE and LLE for descending with R again wt bearing. Pt. required min assist of one and pulled self up with considerable use of UEs using bilat rails. Will trial this with only one rail and perhaps single crutch next Rx as this would best simulate his home situation Exercises Supine Ex: Bridging, Ankle pumps, Quad Set, Rolling, Glut sets, Heel Slides, Short Arc Quads, Straight leg raise (assisted), Hip abd/add Supine Reps: 12 (x2) Seated Therapy Exercises: Ankle pumps, Sit to stand, Long arc quads, Hip abd/add Seated Reps: 15 NuStep Minutes: 10 NuStep Workload: 4 Treatments TRFs, gait, stairs, therex , safety education Assessment Current Status: Good Progress pt. motivated PT Short Term Goals Short Term Goals Time Frame: May 04, 2022 Roll Left & Right: 6 Sit to lyin Lying to sitting on side of be: 6 Sit to stand: 4 (CGA) Chair/amt-mn-djmxd transfer: 4 (SBA) Walk 10 feet: 4 (SBA) Walk 50 feet with two turns: 4 (SBA) Walk 150 feet: 4 (SBA) PT Snf Goals Snf Goals PT Post Acute Care Nurse Practitioner Goals Time Frame: May 18, 2022 Roll Left & Right (QC): 6 Sit to Lying (QC): 6 Lying-Sitting on Side/Bed(QC): 6 Sit to Stand (QC): 4 (SBA) Chair/Rhp-td-Emspk Xfer(QC): 6 Toilet Transfer (QC): 6 Car Transfer (QC): 6 Does the Patient Walk: Yes Walk 10 feet (QC): 6 Walk 50ft with 2 Turns (QC): 6 Walk 150 ft (QC): 6 Walking 10ft on Uneven Surface: 6 1 Step (curb) (QC): 4 4 Steps (QC): 4 12 Steps (QC): 88 Picking up an Object (QC): 6 Wheel 50 feet with 2 turns (QC: 9 Wheel 150 feet: 9 PT Plan Treatment/Plan Treatment Plan: Continue Plan of Care Treatment Plan: Bed Mobility, Education, Functional Activity [place], Functional Strength, Group Therapy, Gait, Safety, Therapeutic Exercise, Transfers Treatment Duration: May 18, 2022 Frequency: At least 5 of 7 days/Wk (IRF) Estimated Hrs Per Day: 1.5 hours per day Patient and/or Family Agrees t: Yes Safety Risks/Education Patient Education: Gait Training, Transfer Techniques, Steps, Correct Positioning, Disease Process, Safety Issues Teaching Recipient: Patient Teaching Methods: Demonstration, Discussion Response to Teaching: Verbalize Understanding, Return Demonstration, Reinforcement Needed Time/GCodes Time In: 1000 Time Out: 1130 Total Billed Treatment Time: 90 Total Billed Treatment 1,GT25m,FA35m,EX30m RHYS GARCIA GROUP BILLING COORDINATOR Apr 29, 2022 11:43
[2022-04-29] MEDS: TAMSULOSIN 0.4 MG (FLOMAX) CAP PO SCH (12:18)
[2022-04-29] MEDS: ALLOPURINOL 100 MG (ZYLOPRIM) TAB PO SCH (12:18)
[2022-04-29] MEDS: AtorvaSTATin TABLET 10 MG TABLET PO SCH (16:58)
[2022-04-29 20:04] VITALS: BP 118/64
[2022-04-29] MEDS: GABAPENTIN 100 MG (NEURONTIN) CAP PO SCH (22:00)
[2022-04-29] MEDS: DIAZEPAM 5 MG (VALIUM) TABLET PO PRN (22:00)
--- NOTE | 2022-04-30 06:09 | PM&R Progress Note ---
Subjective HPI/CC On Admission Date Seen by Provider: Apr 30, 2022 Time Seen by Provider: 11:30 Subjective/Events-last exam 04/30/2022: Patient denies any new issues Pain is controlled Bowels are moving Ambulating around with crutches now 04/29/2022: Patient doing well Still need to work on strengthening the leg muscles and assuring he has no acute decompensation Wants to go home but he needs more work and he understands that 04/28/2022: Patient doing well Home meds restarted Pain controlled BM small this am so will continue meds No falls Review of Systems General: Fatigue, Malaise Musculoskeletal: leg pain Objective Exam Vital Signs Vital Signs Date Time Temp Pulse Resp B/P (MAP) Pulse Ox O2 Delivery O2 Flow Rate FiO2 04/30/22 20:30 Room Air 04/30/22 20:04 36.9 71 18 106/57 (73) 98 Capillary Refill : General Appearance: No Apparent Distress, WD/WN, Chronically ill HEENT: PERRL/EOMI, Normal ENT Inspection, Pharynx Normal Neck: Full Range of Motion, Normal Inspection, Non Tender, Supple, Carotid Bruit Respiratory: Chest Non Tender, Lungs Clear, Normal Breath Sounds, No Accessory Muscle Use, No Respiratory Distress Cardiovascular: Regular Rate, Rhythm, No Edema, No Gallop, No JVD, No Murmur, Normal Peripheral Pulses Gastrointestinal: Normal Bowel Sounds, No Organomegaly, No Pulsatile Mass, Non Tender, Soft Back: Normal Inspection, No CVA Tenderness, No Vertebral Tenderness Extremity: Normal Capillary Refill, Normal Inspection, Normal Range of Motion (except right leg in immobilizer), Non Tender, No Calf Tenderness, No Pedal Edema Neurologic/Psychiatric: Alert, Oriented x3, No Motor/Sensory Deficits, Normal Mood/Affect, fountain jerk II-XII Norm as Tested, Abnormal Gait, Motor Weakness (right leg) Skin: Normal Color, Warm/Dry Lymphatic: No Adenopathy Results/Procedures Lab Patient resulted labs reviewed. FIM Transfers Therapy Code Descriptions/Definitions Functional [place] Measure: 0=Not Assessed/NA 4=Minimal Assistance 1=Total Assistance 5=Supervision or Setup 2=Maximal Assistance 6=Modified [place] 3=Moderate Assistance 7=Complete IndependenceSCALE: Activities may be completed with or without assistive devices. 5-Nbcjlpobkw-ouruvjb completes the activity by him/herself with no assistance from a helper. 5-Set-up or Clean-up Assistance-helper sets up or cleans up; patient completes a ctivity. [place] assists only prior to or following the activity. 4-Supervision or Touching Assistance-helper provides verbal cues and/or touching/steadying and/or contact guard assistance as patient completes activity. Assistance may be provided throughout the activity or intermittently. 3-Partial/Moderate Assistance-helper does LESS THAN HALF the effort. [place] lifts, holds or supports trunk or limbs, but provides less than half the effort. 2-Substantial/Maximal Assistance-helper does MORE THAN HALF the effort. [place] lifts or holds trunk or limbs and provides more than half the effort. 1-Llezfecso-pvodkf does ALL the effort. Patient does none of the effort to complete the activity. Or, the assistance of 2 or more helpers is required for the patient to complete the activity. If activity was not attempted, code reason: 7-Patient Refused. 9-Not Applicable-not attempted and the patient did not perform the activity before the current illness, exacerbation or injury. 10-Not Attempted due to Environmental Limitations-(lack of equipment, weather restraints, etc.). 88-Not Attempted due to Medical Conditions or Safety Concerns. Roll Left to Right (QC): 6 Sit to Lying (QC): 6 Sit to Stand (QC): 6 Chair/Pdq-ry-Fkobo Xfer(QC): 6 Car Transfer (QC): 4 Gait Training Does the Patient Walk?: Yes Distance: 225' x 2 Walk 10 feet (QC): 4 Walk 50 ft with 2 Turns(QC): 4 Walk 150 ft (QC): 4 Walking 10ft/uneven surface-QC: 4 Gait Persons Needed: 1 Gait Assistive Device: FWW Wheelchair Training Does the Pt Use a Wheelchair?: No Wheel 50 ft with 2 turns (QC): 9 Wheel 150 ft (QC): 9 Stair Training Stair Training: Handrails/: 2 handrails #of Steps: 4 1 Step (curb) (QC): 4 4 Steps (QC): 4 12 Steps (QC): 88 Stairs: Pattern: Step to Balance Picking up an Object (QC): 4 (CGA using a belt builder) ADL-Treatment Eating (QC): 6 Oral Hygiene (QC): 6 Shower/Bathe Self (QC): 5 Upper Body Dressing (QC): 6 Lower Body Dressing (QC): 6 On/Off Footwear (QC): 6 Toileting Hygiene (QC): 6 Toilet Transfer (QC): 6 Assessment/Plan Assessment and Plan Assess & Plan/Chief Complaint Assessment: s/p right hip replacement Renal cell cancer hx CHF systolic dysfunction h/o diverticular bleed h/o PE remotely BPH HTN HLP Plan: OT PT per protocol Fall risk Home meds Pain meds BM regimen 04/28/2022: Home meds Pain meds 04/29/2022: Aggressive PT OT Assure no decompensation occurs 04/30/2022: Continue therapy with crutches Discharge home on Monday (1) Hip joint replacement status (2) History of pulmonary embolus (PE) (3) Systolic CHF (4) CAD (coronary artery disease) (5) Stented coronary artery (6) Renal cell carcinoma (7) History of GI diverticular bleed (8) BPH (benign prostatic hyperplasia) JUNIOR SHAW DO Apr 30, 2022 06:08
[2022-04-30] MEDS: MULTIVIT W/MINERALS TAB (THERAGRAN M) PO SCH (06:47)
[2022-04-30 07:29] VITALS: BP 114/65
[2022-04-30] MEDS: PANTOPRAZOLE 40 MG (PROTONIX) TAB PO SCH (07:38)
[2022-04-30] MEDS: SENNA W/DOCUSATE (SENOKOT S) TABLET PO SCH ×2 (07:39→21:55)
[2022-04-30] MEDS: CLOPIDOGREL 75 MG (PLAVIX) TABLET PO SCH (07:39)
[2022-04-30] MEDS: DOCUSATE SODIUM 100 MG (COLACE) CAP PO SCH ×2 (07:39→21:55)
[2022-04-30] MEDS: SACUBITRIL/VALSARTAN 24/26 MG (ENTRESTO) TABLET PO SCH ×2 (07:39→22:28)
[2022-04-30] MEDS: ASPIRIN 81 MG CHEW (CHILDREN'S ASA) PO SCH (07:39)
[2022-04-30] MEDS: HYDROcodone/APAP 5 MG/325 MG (LORTAB) TAB PO PRN ×3 (07:41→20:15)
--- NOTE | 2022-04-30 10:18 | Physical Therapy Daily Note ---
PT Daily Note-Current Subjective Pt up in chair, agreeable. Reports he has used crutches "for years" and has his in the room. Pain Numeric Pain Scale: 4 Location: Right Location Body Site: Hip Pain Description: Pricking Mental Status Patient Orientation: Person, Place, Time, Situation Transfers SCALE: Activities may be completed with or without assistive devices. 4-Rsytsbfodu-lswnqzx completes the activity by him/herself with no assistance from a helper. 5-Set-up or Clean-up Assistance-helper sets up or cleans up; patient completes activity. [place] assists only prior to or following the activity. 4-Supervision or Touching Assistance-helper provides verbal cues and/or touching/steadying and/or contact guard assistance as patient completes activity. Assistance may be provided throughout the activity or intermittently. 3-Partial/Moderate Assistance-helper does LESS THAN HALF the effort. [place] lifts, holds or supports trunk or limbs, but provides less than half the effort. 2-Substantial/Maximal Assistance-helper does MORE THAN HALF the effort. [place] lifts or holds trunk or limbs and provides more than half the effort. 2-Nywmhvovv-dyfnhq does ALL the effort. Patient does none of the effort to complete the activity. Or, the assistance of 2 or more helpers is required for the patient to complete the activity. If activity was not attempted, code reason: 7-Patient Refused. 9-Not Applicable-not attempted and the patient did not perform the activity before the current illness, exacerbation or injury. 10-Not Attempted due to Environmental Limitations-(lack of equipment, weather restraints, etc.). 88-Not Attempted due to Medical Conditions or Safety Concerns. Sit to Stand (QC): 6 Weight Bearing Right Lower Extremity: Right Weight Bearing/Tolerated Gait Training Does the Patient Walk?: Yes Distance: 500 Walk 10 feet (QC): 4 Walk 50 ft with 2 Turns(QC): 4 Walk 150 ft (QC): 4 Gait Persons Needed: 1 Gait Assistive Device: Crutches Pt ambulates with SBA with crutches. Uses crutches to assist (L) LE but reports he has always had to do that. Safe gait, no LOB. Antalgic on (L), excess hip flexion to clear (L) LE but safe. Treatments Gait with crutches. Pt up in chair post treatment with all needs met. Assessment Current Status: Good Progress Pt tolerated very well. Safe gait on crutches. Pt reports gait is near PLOF with crutches. PT Short Term Goals Short Term Goals Time Frame: May 04, 2022 Roll Left & Right: 6 Sit to lyin Lying to sitting on side of be: 6 Sit to stand: 4 (CGA) Chair/mhs-ji-pruza transfer: 4 (SBA) Walk 10 feet: 4 (SBA) Walk 50 feet with two turns: 4 (SBA) Walk 150 feet: 4 (SBA) PT Clutch Inspector Goals Jail Goals PT Jail Goals Time Frame: May 18, 2022 Roll Left & Right (QC): 6 Sit to Lying (QC): 6 Lying-Sitting on Side/Bed(QC): 6 Sit to Stand (QC): 4 (SBA) Chair/Lpz-ky-Ohxfz Xfer(QC): 6 Toilet Transfer (QC): 6 Car Transfer (QC): 6 Does the Patient Walk: Yes Walk 10 feet (QC): 6 Walk 50ft with 2 Turns (QC): 6 Walk 150 ft (QC): 6 Walking 10ft on Uneven Surface: 6 1 Step (curb) (QC): 4 4 Steps (QC): 4 12 Steps (QC): 88 Picking up an Object (QC): 6 Wheel 50 feet with 2 turns (QC: 9 Wheel 150 feet: 9 PT Plan Problem List Problem List: Activity Tolerance, Functional Strength, Safety, Balance, Gait, Transfer, Bed Mobility Treatment/Plan Treatment Plan: Continue Plan of Care Treatment Plan: Bed Mobility, Education, Functional Activity Bay, Functional Strength, Group Therapy, Gait, Safety, Therapeutic Exercise, Transfers Treatment Duration: May 18, 2022 Frequency: At least 5 of 7 days/Wk (IRF) Estimated Hrs Per Day: 1.5 hours per day Patient and/or Family Agrees t: Yes Time/GCodes Time In: 907 Time Out: 936 Total Billed Treatment Time: 29 Total Billed Treatment 1, FA x 29' CHANA GOTTI DPT Apr 30, 2022 10:18
[2022-04-30] MEDS: TAMSULOSIN 0.4 MG (FLOMAX) CAP PO SCH (14:06)
[2022-04-30] MEDS: ALLOPURINOL 100 MG (ZYLOPRIM) TAB PO SCH (14:06)
[2022-04-30] MEDS: PSYLLIUM POWDER (METAMUCIL) 5.8 GM PACKET PO SCH (17:41)
[2022-04-30] MEDS: AtorvaSTATin TABLET 10 MG TABLET PO SCH (17:41)
[2022-04-30] MEDS: polyethylene glycoL POWDER 17 GM (MIRALAX) PACK PO SCH ×2 (17:53→21:55)
[2022-04-30 20:04] VITALS: BP 106/57
[2022-04-30] MEDS: DIAZEPAM 5 MG (VALIUM) TABLET PO PRN (22:28)
[2022-04-30] MEDS: GABAPENTIN 100 MG (NEURONTIN) CAP PO SCH (22:28)
[2022-05-01] MEDS: MULTIVIT W/MINERALS TAB (THERAGRAN M) PO SCH (06:48)
[2022-05-01 07:34] VITALS: BP 111/62
--- NOTE | 2022-05-01 07:36 | PM&R Progress Note ---
Subjective HPI/CC On Admission Date Seen by Provider: May 01, 2022 Time Seen by Provider: 12:00 Subjective/Events-last exam 05/01/2022: Patient doing very well Bowels have not moved today but they did yesterday Pain is very well controlled 04/30/2022: Patient denies any new issues Pain is controlled Bowels are moving Ambulating around with crutches now 04/29/2022: Patient doing well Still need to work on strengthening the leg muscles and assuring he has no acute decompensation Wants to go home but he needs more work and he understands that 04/28/2022: Patient doing well Home meds restarted Pain controlled BM small this am so will continue meds No falls Objective Exam Vital Signs Vital Signs Date Time Temp Pulse Resp B/P (MAP) Pulse Ox O2 Delivery O2 Flow Rate FiO2 05/01/22 20:45 37.2 72 17 109/59 (76) 97 Room Air Capillary Refill : General Appearance: No Apparent Distress, WD/WN, Chronically ill HEENT: PERRL/EOMI, Normal ENT Inspection, Pharynx Normal Neck: Full Range of Motion, Normal Inspection, Non Tender, Supple, Carotid Bruit Respiratory: Chest Non Tender, Lungs Clear, Normal Breath Sounds, No Accessory Muscle Use, No Respiratory Distress Cardiovascular: Regular Rate, Rhythm, No Edema, No Gallop, No JVD, No Murmur, Normal Peripheral Pulses Gastrointestinal: Normal Bowel Sounds, No Organomegaly, No Pulsatile Mass, Non Tender, Soft Back: Normal Inspection, No CVA Tenderness, No Vertebral Tenderness Extremity: Normal Capillary Refill, Normal Inspection, Normal Range of Motion (except right leg in immobilizer), Non Tender, No Calf Tenderness, No Pedal Edema Neurologic/Psychiatric: Alert, Oriented x3, No Motor/Sensory Deficits, Normal Mood/Affect, treatment coordinator II-XII Norm as Tested, Abnormal Gait, Motor Weakness (right leg) Skin: Normal Color, Warm/Dry Lymphatic: No Adenopathy Results/Procedures Lab Patient resulted labs reviewed. FIM Transfers Therapy Code Descriptions/Definitions Functional [place] Measure: 0=Not Assessed/NA 4=Minimal Assistance 1=Total Assistance 5=Supervision or Setup 2=Maximal Assistance 6=Modified [place] 3=Moderate Assistance 7=Complete IndependenceSCALE: Activities may be completed with or without assistive devices. 0-Hvaxcprqxi-vrxsfpq completes the activity by him/herself with no assistance from a helper. 5-Set-up or Clean-up Assistance-helper sets up or cleans up; patient completes activity. [place] assists only prior to or following the activity. 4-Supervision or Touching Assistance-helper provides verbal cues and/or touching/steadying and/or contact guard assistance as patient completes activity. Assistance may be provided throughout the activity or intermittently. 3-Partial/Moderate Assistance-helper does LESS THAN HALF the effort. [place] lifts, holds or supports trunk or limbs, but provides less than half the effort. 2-Substantial/Maximal Assistance-helper does MORE THAN HALF the effort. [place] lifts or holds trunk or limbs and provides more than half the effort. 4-Uyzgyxork-iyunhh does ALL the effort. Patient does none of the effort to complete the activity. Or, the assistance of 2 or more helpers is required for the patient to complete the activity. If activity was not attempted, code reason: 7-Patient Refused. 9-Not Applicable-not attempted and the patient did not perform the activity before the current illness, exacerbation or injury. 10-Not Attempted due to Environmental Limitations-(lack of equipment, weather restraints, etc.). 88-Not Attempted due to Medical Conditions or Safety Concerns. Roll Left to Right (QC): 6 Sit to Lying (QC): 6 Sit to Stand (QC): 6 Chair/Hde-cv-Juyxz Xfer(QC): 6 Car Transfer (QC): 4 Gait Training Does the Patient Walk?: Yes Distance: 500 Walk 10 feet (QC): 4 Walk 50 ft with 2 Turns(QC): 4 Walk 150 ft (QC): 4 Walking 10ft/uneven surface-QC: 4 Gait Persons Needed: 1 Gait Assistive Device: Crutches Wheelchair Training Does the Pt Use a Wheelchair?: No Wheel 50 ft with 2 turns (QC): 9 Wheel 150 ft (QC): 9 Stair Training Stair Training: Handrails/: 2 handrails #of Steps: 4 1 Step (curb) (QC): 4 4 Steps (QC): 4 12 Steps (QC): 88 Stairs: Pattern: Step to Balance Picking up an Object (QC): 4 (CGA using a stretcher helper) ADL-Treatment Eating (QC): 6 Oral Hygiene (QC): 6 Shower/Bathe Self (QC): 5 Upper Body Dressing (QC): 6 Lower Body Dressing (QC): 6 On/Off Footwear (QC): 6 Toileting Hygiene (QC): 6 Toilet Transfer (QC): 6 Assessment/Plan Assessment and Plan Assess & Plan/Chief Complaint Assessment: s/p right hip replacement Renal cell cancer hx CHF systolic dysfunction h/o diverticular bleed h/o PE remotely BPH HTN HLP Plan: OT PT per protocol Fall risk Home meds Pain meds BM regimen 04/28/2022: Home meds Pain meds 04/29/2022: Aggressive PT OT Assure no decompensation occurs 04/30/2022: Continue therapy with crutches Discharge home on Monday05/01/2022: DC Monday (1) Hip joint replacement status (2) History of pulmonary embolus (PE) (3) Systolic CHF (4) CAD (coronary artery disease) (5) Stented coronary artery (6) Renal cell carcinoma (7) History of GI diverticular bleed (8) BPH (benign prostatic hyperplasia) JUNIOR SHAW DO May 01, 2022 07:36
[2022-05-01] MEDS: CLOPIDOGREL 75 MG (PLAVIX) TABLET PO SCH (07:37)
[2022-05-01] MEDS: SACUBITRIL/VALSARTAN 24/26 MG (ENTRESTO) TABLET PO SCH ×2 (07:37→22:25)
[2022-05-01] MEDS: HYDROcodone/APAP 5 MG/325 MG (LORTAB) TAB PO PRN ×2 (07:38→18:53)
[2022-05-01] MEDS: PANTOPRAZOLE 40 MG (PROTONIX) TAB PO SCH (07:38)
[2022-05-01] MEDS: ASPIRIN 81 MG CHEW (CHILDREN'S ASA) PO SCH (07:38)
[2022-05-01] MEDS: PSYLLIUM POWDER (METAMUCIL) 5.8 GM PACKET PO SCH (07:38)
[2022-05-01] MEDS: polyethylene glycoL POWDER 17 GM (MIRALAX) PACK PO SCH ×2 (08:48→21:55)
[2022-05-01] MEDS: SENNA W/DOCUSATE (SENOKOT S) TABLET PO SCH ×3 (08:48→22:26)
[2022-05-01] MEDS: DOCUSATE SODIUM 100 MG (COLACE) CAP PO SCH ×3 (08:48→22:26)
[2022-05-01] MEDS: TAMSULOSIN 0.4 MG (FLOMAX) CAP PO SCH (13:01)
[2022-05-01] MEDS: ALLOPURINOL 100 MG (ZYLOPRIM) TAB PO SCH (13:01)
[2022-05-01] MEDS: AtorvaSTATin TABLET 10 MG TABLET PO SCH (17:24)
[2022-05-01 20:45] VITALS: BP 109/59
[2022-05-01] MEDS: DIAZEPAM 5 MG (VALIUM) TABLET PO PRN (22:26)
[2022-05-01] MEDS: GABAPENTIN 100 MG (NEURONTIN) CAP PO SCH (22:26)
[2022-05-02] MEDS: MULTIVIT W/MINERALS TAB (THERAGRAN M) PO SCH (06:10)
[2022-05-02] MEDS: HYDROcodone/APAP 5 MG/325 MG (LORTAB) TAB PO PRN (06:10)
[2022-05-02] MEDS ORDERED: DIAZ10TA3 PO (06:18)
[2022-05-02] MEDS ORDERED: ACHD5005 PO (06:18)
--- NOTE | 2022-05-02 06:19 | Discharge Summary ---
Diagnosis/Chief Complaint Date of Admission Apr 27, 2022 at 12:55 Date of Discharge Discharge Date: May 02, 2022 Discharge Diagnosis Assessment: s/p right hip replacement Renal cell cancer hx CHF systolic dysfunction h/o diverticular bleed h/o PE remotely BPH HTN HLP Plan: OT PT per protocol Fall risk Home meds Pain meds BM regimen 04/28/2022: Home meds Pain meds 04/29/2022: Aggressive PT OT Assure no decompensation occurs 04/30/2022: Continue therapy with crutches Discharge home on Monday05/01/2022: DC Monday (1) Hip joint replacement status (2) History of pulmonary embolus (PE) (3) Systolic CHF (4) CAD (coronary artery disease) (5) Stented coronary artery (6) Renal cell carcinoma (7) History of GI diverticular bleed (8) BPH (benign prostatic hyperplasia) Discharge Summary Discharge Physical Examination Allergies: Coded Allergies: No Known Drug Allergies (Unverified , 11/10/17) Vitals & I&Os Vital Signs Date Time Temp Pulse Resp B/P (MAP) Pulse Ox O2 Delivery O2 Flow Rate FiO2 05/02/22 12:50 36.8 91 18 129/61 93 Room Air General Appearance: Alert, Oriented X3, Cooperative HEENT: Atraumatic Respiratory: Clear to Auscultation Abdominal: Normal Bowel Sounds Neuro: Normal Gait, Normal Speech, Strength at 5/5 X4 Ext Psych/Mental Status: Mental Status NL Hospital Course Was the Problem List Reviewed?: Yes Hospital course: Patient had an uneventful 6-day hospital course after he was admitted following a right hip replacement by Dr. Chawla. He did very well he participated in all therapy pain was well controlled on pain medication bowels returned back to normal and he was deemed stable for discharge with outpatient therapy. Labs (last 24 hrs) Laboratory Tests 04/28/22 05:52: White Blood Count 7.3, Red Blood Count 3.97L, Hemoglobin 12.5L, Hematocrit 37L, Mean Corpuscular Volume 92, Mean Corpuscular Hemoglobin 32, Mean Corpuscular Hem oglobin Concent 34, Red Cell Distribution Width 13.5, Platelet Count 166, Mean Platelet Volume 9.7, Immature Granulocyte % (Auto) 0, Neutrophils (%) (Auto) 62, Lymphocytes (%) (Auto) 26, Monocytes (%) (Auto) 11, Eosinophils (%) (Auto) 1, Basophils (%) (Auto) 1, Neutrophils # (Auto) 4.5, Lymphocytes # (Auto) 1.9, Monocytes # (Auto) 0.8, Eosinophils # (Auto) 0.1, Basophils # (Auto) 0.1, Immature Granulocyte # (Auto) 0.0, Sodium Level 140, Potassium Level 3.9, Chloride Level 109H, Carbon Dioxide Level 23, Anion Gap 8, Blood Urea Nitrogen 16, Creatinine 0.85, Estimat Glomerular Filtration Rate 95, BUN/Creatinine Ratio 19, Glucose Level 87, Calcium Level 8.1L, Corrected Calcium 9.0, Total Bilirubin 0.4, Aspartate Amino Transf (AST/SGOT) 16, Alanine Aminotransferase (ALT/SGPT) 11, Alkaline Phosphatase 58, Total Protein 5.0L, Albumin 2.9L Pending Labs Laboratory Tests 04/28/22 05:52: White Blood Count 7.3, Red Blood Count 3.97, Hemoglobin 12.5, Hematocrit 37, Mean Corpuscular Volume 92, Mean Corpuscular Hemoglobin 32, Mean Corpuscular Hemoglobin Concent 34, Red Cell Distribution Width 13.5, Platelet Count 166, Mean Platelet Volume 9.7, Immature Granulocyte % (Auto) 0, Neutrophils (%) (Auto) 62, Lymphocytes (%) (Auto) 26, Monocytes (%) (Auto) 11, Eosinophils (%) (Auto) 1, Basophils (%) (Auto) 1, Neutrophils # (Auto) 4.5, Lymphocytes # (Auto) 1.9, Monocytes # (Auto) 0.8, Eosinophils # (Auto) 0.1, Basophils # (Auto) 0.1, Immature Granulocyte # (Auto) 0.0, Sodium Level 140, Potassium Level 3.9, Chloride Level 109, Carbon Dioxide Level 23, Anion Gap 8, Blood Urea Nitrogen 16, Creatinine 0.85, Estimat Glomerular Filtration Rate 95, BUN/Creatinine Ratio 19, Glucose Level 87, Calcium Level 8.1, Corrected Calcium 9.0, Total Bilirubin 0.4, Aspartate Amino Transf (AST/SGOT) 16, Alanine Aminotransferase (ALT/SGPT) 11, Alkaline Phosphatase 58, Total Protein 5.0, Albumin 2.9 Discharge Home Medications: Active Scripts Active Hydrocodone-Acetamin 5-325 mg (Hydrocodone/Acetaminophen) 5 Mg-325 Mg Tablet 2 Tab PO Q8H PRN Diazepam 10 Mg Tablet 10 Mg PO HS PRN Reported Metamucil (Psyllium Husk) 0.4 Gram Capsule 0.4 Gm PO DAILY Ketoconazole 2 % Shampoo 1 Applic TP DAILY PRN Gabapentin 100 Mg Capsule 100 Mg PO HS PRN Cyclobenzaprine HCl 10 Mg Tablet 10 Mg PO HS PRN Carvedilol 3.125 Mg Tablet 3.125 Mg PO BID Aspirin 81 Mg Tab.chew 81 Mg PO DAILY Allopurinol 100 Mg Tablet 100 Mg PO 1300 TAKES AFTER LUNCH Multivitamin 1 Each Tablet 1 Each PO DAILY Pantoprazole Sodium 40 Mg Tablet.dr 40 Mg PO DAILY Flomax (Tamsulosin HCl) 0.4 Mg Cap 0.4 Mg PO 1200 Clopidogrel (Clopidogrel Bisulfate) 75 Mg Tablet 75 Mg PO DAILY Simvastatin 20 Mg Tablet 20 Mg PO 1800 Entresto 24 mg-26 mg Tablet (Sacubitril/Valsartan) 1 Each Tablet 1 Each PO BID Nitroglycerin 0.4 Mg Tab.subl 0.4 Mg SL UD PRN Co Q-10 (Ubidecarenone) 100 Mg Capsule 100 Mg PO DAILY Instructions to patient/family Please see electronic discharge instructions given to patient. Diagnosis/Problems Diagnosis/Problems (1) Hip joint replacement status (2) History of pulmonary embolus (PE) (3) Systolic CHF (4) CAD (coronary artery disease) (5) Stented coronary artery (6) Renal cell carcinoma (7) History of GI diverticular bleed (8) BPH (benign prostatic hyperplasia) JUNIOR SHAW DO May 02, 2022 06:19
[2022-05-02 07:32] VITALS: BP 129/61
[2022-05-02] MEDS: DOCUSATE SODIUM 100 MG (COLACE) CAP PO SCH (08:40)
[2022-05-02] MEDS: SENNA W/DOCUSATE (SENOKOT S) TABLET PO SCH (08:40)
[2022-05-02] MEDS: SACUBITRIL/VALSARTAN 24/26 MG (ENTRESTO) TABLET PO SCH (08:40)
[2022-05-02] MEDS: ASPIRIN 81 MG CHEW (CHILDREN'S ASA) PO SCH (08:40)
[2022-05-02] MEDS: PSYLLIUM POWDER (METAMUCIL) 5.8 GM PACKET PO SCH (08:40)
[2022-05-02] MEDS: PANTOPRAZOLE 40 MG (PROTONIX) TAB PO SCH (08:40)
[2022-05-02] MEDS: CLOPIDOGREL 75 MG (PLAVIX) TABLET PO SCH (08:40)
[2022-05-02] MEDS: polyethylene glycoL POWDER 17 GM (MIRALAX) PACK PO SCH (08:40)
--- NOTE | 2022-05-02 08:55 | Occupational Ther Daily Note ---
OT Current Status-Daily Note Subjective Pt denies pain, reports possibility of discharge later today Appearance Pt returned to sitting in recliner, all needs within reach at OT departure. Mental Status/Objective Patient Orientation: Person, Place, Situation ADL-Treatment Therapy Code Descriptions/Definitions Functional [place] Measure: 0=Not Assessed/NA 4=Minimal Assistance 1=Total Assistance 5=Supervision or Setup 2=Maximal Assistance 6=Modified [place] 3=Moderate Assistance 7=Complete IndependenceSCALE: Activities may be completed with or without assistive devices. 3-Madyujmenk-dmwflzz completes the activity by him/herself with no assistance from a helper. 5-Set-up or Clean-up Assistance-helper sets up or cleans up; patient completes activity. [place] assists only prior to or following the activity. 4-Supervision or Touching Assistance-helper provides verbal cues and/or touching/steadying and/or contact guard assistance as patient completes activity. Assistance may be provided throughout the activity or intermittently. 3-Partial/Moderate Assistance-helper does LESS THAN HALF the effort. [place] lifts, holds or supports trunk or limbs, but provides less than half the effort. 2-Substantial/Maximal Assistance-helper does MORE THAN HALF the effort. [place] lifts or holds trunk or limbs and provides more than half the effort. 9-Famzxvsla-rpfmww does ALL the effort. Patient does none of the effort to complete the activity. Or, the assistance of 2 or more helpers is required for the patient to complete the activity. If activity was not attempted, code reason: 7-Patient Refused. 9-Not Applicable-not attempted and the patient did not perform the activity before the current illness, exacerbation or injury. 10-Not Attempted due to Environmental Limitations-(lack of equipment, weather restraints, etc.). 88-Not Attempted due to Medical Conditions or Safety Concerns. Eating (QC): 6 Oral Hygiene (QC): 6 Shower/Bathe Self (QC): 5 (per patient/clinical judgment) Upper Body Dressing (QC): 6 Lower Body Dressing (QC): 6 On/Off Footwear: 6 Toileting Hygiene (QC): 6 Toilet Transfer (QC): 6 Pt declines shower as he reports he took one previous day. Per patient and clinical judgment, pt is at set up for covering of incision. Pt has demonstrated ability to wash all body parts without assistance in past sessions. Pt retrieved and donned all clothing without assist or use of AE. Extra time only for LB dressing. Pt reports that is is looking into purchasing a tub transfer bench for home use. Other Treatment Pt ambulated to/from therapy gym with supervision and use of crutches. No LOB or unsteadiness exhibited. Pt uses crutches more for stability vs hopping on 1 foot (similar to use of cane). While seated, pt participated in UE exercises with black theraband. OT provided pt with HEP. He was able to read handout and demonstrate exercises back to therapist. Min verbal cues for improved form. Pt tolerates well, 2x12 all planes. Education OT Patient Education: Correct positioning, Energy conservation, Exercise program, Home exercise program, Modified ADL techniques, Progress toward Goal/Update tx plan, Purpose of tx/functional activities, Rehab process Teaching Recipient: Patient Teaching Methods: Demonstration, Discussion Response to Teaching: Verbalize Understanding, Return Demonstration OT Short Term Goals Short Term Goals Time Frame: May 03, 2022 Eatin Oral hygiene: 6 Toileting hygiene: 4 Shower/bathe self: 4 Upper body dressin Lower body dressin Putting on/taking off footwear: 5 OT Senior Living Goals Senior Living Goals Time Frame: May 10, 2022 Eating (QC): 6 Oral Hygiene (QC): 6 Toileting Hygiene (QC): 6 Shower/Bathe Self (QC): 5 Upper Body Dressing (QC): 6 Lower Body Dressing (QC): 6 On/Off Footwear (QC): 6 1=Demonstrate adherence to instructed precautions during ADL tasks. 2=Patient will verbalize/demonstrate understanding of assistive devices/modifications for ADL. 3=Patient will improve strength/tolerance for activity to enable patient to perform ADL's. OT Education/Plan Problem List/Assessment Assessment: Impaired I ADL's Discharge Recommendations Plan/Recommendations: Continue POC Equpiment Recommendations-D/C: Extended Bath Bench, Track Grinder Operator Treatment Plan/Plan of Care Treatment,Training & Education: Yes Patient would benefit from OT for education, treatment and training to promote independence in ADL's, mobility, safety and/or upper extremity function for ADL's. Plan of Care: ADL Retraining, Functional Mobility, Group Exercise/Act as Ind, Orthotic Fitting/Training, UE Funct Exercise/Act Treatment Duration: May 10, 2022 Frequency: At least 5 of 7 days/Wk (IRF) Estimated Hrs Per Day: 1.5 hours per day (75-90 min/day ) Agreement: Yes Rehab Potential: Fair Time/GCodes Start Time: 07:25 Stop Time: 08:55 Total Time Billed (hr/min): 90 Billed Treatment Time 1 visit ADL x3 (45 min) EX x3 (45 min) Olga Sanders OT May 02, 2022 08:55
--- NOTE | 2022-05-02 10:01 | Physical Therapy Daily Note ---
PT Daily Note-Current Subjective Pt sitting in recliner visiting w/SW upon arrival. Pt agrees to PT for QC scoring as pt is d/c today. Transfers SCALE: Activities may be completed with or without assistive devices. 6-Iqggrkutsl-zjlsaja completes the activity by him/herself with no assistance from a helper. 5-Set-up or Clean-up Assistance-helper sets up or cleans up; patient completes activity. [place] assists only prior to or following the activity. 4-Supervision or Touching Assistance-helper provides verbal cues and/or touching/steadying and/or contact guard assistance as patient completes activity. Assistance may be provided throughout the activity or intermittently. 3-Partial/Moderate Assistance-helper does LESS THAN HALF the effort. [place] lifts, holds or supports trunk or limbs, but provides less than half the effort. 2-Substantial/Maximal Assistance-helper does MORE THAN HALF the effort. [place] lifts or holds trunk or limbs and provides more than half the effort. 0-Lfxzwgffr-wgafsa does ALL the effort. Patient does none of the effort to complete the activity. Or, the assistance of 2 or more helpers is required for the patient to complete the activity. If activity was not attempted, code reason: 7-Patient Refused. 9-Not Applicable-not attempted and the patient did not perform the activity before the current illness, exacerbation or injury. 10-Not Attempted due to Environmental Limitations-(lack of equipment, weather restraints, etc.). 88-Not Attempted due to Medical Conditions or Safety Concerns. Roll Left & Right (QC): 6 Sit to Lying (QC): 6 Lying to Sitting/Side of Bed(Q: 6 Sit to Stand (QC): 6 Chair/Oxw-gf-Zdxzx Xfer(QC): 6 Toilet Transfer (QC): 6 Car Transfer (QC): 6 Weight Bearing Right Lower Extremity: Right Weight Bearing/Tolerated Gait Training Does the Patient Walk?: Yes Distance: 150' x2 Walk 10 feet (QC): 6 Walk 50 ft with 2 Turns(QC): 6 Walk 150 ft (QC): 6 Walking 10ft/uneven surface-QC: 6 Gait Persons Needed: 0 Gait Assistive Device: Crutches Pt doesn't use crutches in traditional fashion but more like two SPC, no swing through gait but step to instead. Wheelchair Training Does the Pt Use a Wheelchair?: No Stair Training Stair Training: Handrails/: Independent #of Steps: 4 1 Step (curb) (QC): 6 4 Steps (QC): 6 12 Steps (QC): 7 Stairs: Pattern: Step to Balance Picking up an Object (QC): 88 Special Test Comments Pt does not complete due to increase pressure on R hip w/bending. Pt has telephone operator and Sp to assist at home. Treatments QC scoring items completed listed above. Pt returns to room to rest in recliner at end of tx. All needs met, call light in hand. Assessment Current Status: Good Progress Pt is anxious but excited to go home. Pt chauncey. tx well and feels ready to d/c. PT Short Term Goals Short Term Goals Time Frame: May 04, 2022 Roll Left & Right: 6 Sit to lyin Lying to sitting on side of be: 6 Sit to stand: 4 (CGA) Chair/cii-ve-mzxom transfer: 4 (SBA) Walk 10 feet: 4 (SBA) Walk 50 feet with two turns: 4 (SBA) Walk 150 feet: 4 (SBA) PT Shelter Goals Soap Chipper Goals PT Shelter Goals Time Frame: May 18, 2022 Roll Left & Right (QC): 6 Sit to Lying (QC): 6 Lying-Sitting on Side/Bed(QC): 6 Sit to Stand (QC): 4 (SBA) Chair/Xnw-iw-Ojbwd Xfer(QC): 6 Toilet Transfer (QC): 6 Car Transfer (QC): 6 Does the Patient Walk: Yes Walk 10 feet (QC): 6 Walk 50ft with 2 Turns (QC): 6 Walk 150 ft (QC): 6 Walking 10ft on Uneven Surface: 6 1 Step (curb) (QC): 4 4 Steps (QC): 4 12 Steps (QC): 88 Picking up an Object (QC): 6 Wheel 50 feet with 2 turns (QC: 9 Wheel 150 feet: 9 PT Plan Treatment/Plan Treatment Plan: Continue Plan of Care Treatment Plan: Bed Mobility, Education, Functional Activity [place], Functional Strength, Group Therapy, Gait, Safety, Therapeutic Exercise, Transfers Treatment Duration: May 18, 2022 Frequency: At least 5 of 7 days/Wk (IRF) Estimated Hrs Per Day: 1.5 hours per day Patient and/or Family Agrees t: Yes Safety Risks/Education Patient Education: Steps Teaching Recipient: Patient Teaching Methods: Discussion Response to Teaching: Verbalize Understanding Time/GCodes Time In: 915 Time Out: 1000 Total Billed Treatment Time: 45 Total Billed Treatment 1, FA x2 (30m) & GT (15m) YULISA PASCUAL SKILLED NURSING PROFESSIONAL May 02, 2022 10:01
[2022-05-02 12:50] VITALS: BP 129/61
--- NOTE | 2022-05-03 09:40 | Therapy Team Discharge Summary ---
Therapy Discharge Summary Discharge Recommendations Date of Discharge May 02, 2022 at 12:53 Physical Therapy Patient came to rehab post anterior right ALFA. Upon evaluation patient performs rolling with independence, supine <-> sit SBA, sit <-> stand min assist, transfers CGA, car transfer CGA, ambulate 150' with a rolling walker with CGA (including 50' with at least 2 turns of 90 degrees and 10' over an uneven surface), can go up and down 1 step using a rolling walker with CGA, and can pick up driver an object from the floor using a kaiako kura ka[place] maori with CGA. Patient has been performing bed mobility and transfer training, balance and endurance training, functional strengthening, stair training, gait training, and education. Patient has made good progress and has met all of his residential goals except for picking up an object from the floor. Now, patient performs rolling and supine <-> sit with independence, sit <-> stand and transfers with independence, car transfer independent, ambulates 150' with axillary crutches with independence (including 50' with at least 2 turns of 90 degrees and 10' over an uneven surface), and can go up and down 4 steps with independence. Patient has been discharged from this facility and will be discharged from PT at this time. Roll Left to Right (QC): 6 Sit to Lying (QC): 6 Lying to Sitting/Side of Bed(Q: 6 Sit to Stand (QC): 6 Chair/Xsj-dt-Ornqi Xfer(QC): 6 Toilet Transfer (QC): 6 Car Transfer (QC): 6 Does the Patient Walk: Yes Mode of Locomotion: Walk Anticipated Mode of Locomotion: Walk Walk 10 feet (QC): 6 Walk 50 ft with 2 Turns(QC): 6 Walk 150 ft (QC): 6 Walking 10ft on uneven surface: 6 Distance: 150'x2, 100'x2 Gait Assistive Device: Crutches Does the Pt Use a Wheelchair: No Wheel 50 ft with 2 turns (QC): 9 Wheel 150 ft (QC): 9 #of Steps: 4 1 Step (curb) (QC): 6 4 Steps (QC): 6 12 Steps (QC): 7 Walking Assistive Device: Walker Balance Sitting Static: Normal Balance Sitting Dynamic: Normal Balance-Standing Static: Fair Picking up an Object (QC): 88 Occupational Therapy Impaired I ADL's Eating (QC): 6 Oral Hygiene (QC): 6 Shower/Bathe Self (QC): 5 (per patient/clinical judgment) Upper Body Dressing (QC): 6 Lower Body Dressing (QC): 6 On/Off Footwear (QC): 6 Toileting Hygiene (QC): 6 PT Embroidery Specialist Goals Fpc Goals PT Embroidery Specialist Goals Time Frame: May 18, 2022 Roll Left to Right (QC): 6 Sit to Lying (QC): 6 Lying-Sitting on Side/Bed(QC): 6 Sit to Stand (QC): 4 (SBA) Chair/Wmb-ig-Dzrbs Xfer(QC): 6 Car Transfer (QC): 6 Does the Patient Walk: Yes Walk 10 feet (QC): 6 Walk 10ft-Uneven Surface(QC): 6 Walk 50ft with 2 Turns (QC): 6 Walk 150 ft (QC): 6 Wheel 50 feet with 2 turns (QC: 9 1 Step (curb) (QC): 4 4 Steps (QC): 4 12 Steps (QC): 88 Picking up an Object (QC): 6 OT Embroidery Specialist Goals Fpc Goals Time Frame: May 10, 2022 Eating (QC): 6 Oral Hygiene (QC): 6 Shower/Bathe Self (QC): 5 Upper Body Dressing (QC): 6 Lower Body Dressing (QC): 6 On/Off Footwear (QC): 6 Toileting Hygiene (QC): 6 Toilet/Commode Transfer (QC): 6 1=Demonstrate adherence to instructed precautions during ADL tasks. 2=Patient will verbalize/demonstrate understanding of assistive device s/modifications for ADL. 3=Patient will improve strength/tolerance for activity to enable patient to perform ADL's. SHAZIA PRUITT PT May 03, 2022 09:39
--- NOTE | 2022-05-03 15:18 | Therapy Team Discharge Summary ---
Therapy Discharge Summary Discharge Recommendations Date of Discharge May 02, 2022 at 12:53 Therapy D/C Recommendations: Home w/ Family Support Physical Therapy Roll Left to Right (QC): 6 Sit to Lying (QC): 6 Lying to Sitting/Side of Bed(Q: 6 Sit to Stand (QC): 6 Chair/Eep-qp-Vxjgs Xfer(QC): 6 Toilet Transfer (QC): 6 Car Transfer (QC): 6 Does the Patient Walk: Yes Mode of Locomotion: Walk Anticipated Mode of Locomotion: Walk Walk 10 feet (QC): 6 Walk 50 ft with 2 Turns(QC): 6 Walk 150 ft (QC): 6 Walking 10ft on uneven surface: 6 Distance: 150'x2, 100'x2 Gait Assistive Device: Crutches Does the Pt Use a Wheelchair: No Wheel 50 ft with 2 turns (QC): 9 Wheel 150 ft (QC): 9 #of Steps: 4 1 Step (curb) (QC): 6 4 Steps (QC): 6 12 Steps (QC): 7 Walking Assistive Device: Walker Balance Sitting Static: Normal Balance Sitting Dynamic: Normal Balance-Standing Static: Fair Picking up an Object (QC): 88 Occupational Therapy Pt admitted to ARU following a R ALFA. At time of eval, pt was min a for bathing, lower body dressing, and toileting, SBA for footwear, set up for upper body dressing and oral care, and indep with eating. During his rehab stay, OT focused on promoting increased UE strength, balance, use of energy conservation strategies, adaptive techniques/equipment, and overall endurance in order to increase performance and independence with adls and functional mobility. Pt made good progress and met all of his rn long term care goals. See below for current levels of assist. Pt is now discharged from this facility and will be discharged from OT at this time. Impaired I ADL's Eating (QC): 6 Oral Hygiene (QC): 6 Shower/Bathe Self (QC): 5 (per patient/clinical judgment) Upper Body Dressing (QC): 6 Lower Body Dressing (QC): 6 On/Off Footwear (QC): 6 Toileting Hygiene (QC): 6 PT Custodial Goals Custodial Goals PT Disaster Recovery Specialist Goals Time Frame: May 18, 2022 Roll Left to Right (QC): 6 Sit to Lying (QC): 6 Lying-Sitting on Side/Bed(QC): 6 Sit to Stand (QC): 4 (SBA) Chair/Wev-yb-Gfabx Xfer(QC): 6 Car Transfer (QC): 6 Does the Patient Walk: Yes Walk 10 feet (QC): 6 Walk 10ft-Uneven Surface(QC): 6 Walk 50ft with 2 Turns (QC): 6 Walk 150 ft (QC): 6 Wheel 50 feet with 2 turns (QC: 9 1 Step (curb) (QC): 4 4 Steps (QC): 4 12 Steps (QC): 88 Picking up an Object (QC): 6 OT Custodial Goals Disaster Recovery Specialist Goals Time Frame: May 10, 2022 Eating (QC): 6 (met) Oral Hygiene (QC): 6 (met) Shower/Bathe Self (QC): 5 (met) Upper Body Dressing (QC): 6 (met) Lower Body Dressing (QC): 6 (met) On/Off Footwear (QC): 6 (met) Toileting Hygiene (QC): 6 (met) Toilet/Commode Transfer (QC): 6 (met) 1=Demonstrate adherence to instructed precautions during ADL tasks. 2=Patient will verbalize/demonstrate understanding of assistive devices/modifications for ADL. 3=Patient will improve strength/tolerance for activity to enable patient to perform ADL's. Olga Sanders OT May 03, 2022 15:18
== END 2022-05-02 12:53 | disposition home or self-care (01) | DRG 560 ==
PROVIDERS: ADMIT Internal Medicine; ATTEND Internal Medicine
DX: Z47.1 Aftercare following joint replacement surgery (principal); I50.20 Unspecified systolic (congestive) heart failure; Z96.641 Presence of right artificial hip joint; I11.0 Hypertensive heart disease with heart failure; I25.10 Atherosclerotic heart disease of native coronary artery without angina pectoris; N40.0 Benign prostatic hyperplasia without lower urinary tract symptoms; E78.00 Pure hypercholesterolemia, unspecified; G62.9 Polyneuropathy, unspecified; K57.90 Diverticulosis of intestine, part unspecified, without perforation or abscess without bleeding; M19.91 Primary osteoarthritis, unspecified site; I25.2 Old myocardial infarction; Z86.711 Personal history of pulmonary embolism; Z85.528 Personal history of other malignant neoplasm of kidney; Z95.5 Presence of coronary angioplasty implant and graft; Z86.718 Personal history of other venous thrombosis and embolism; Z79.82 Long term (current) use of aspirin
CPT/HCPCS: 36415; 80053; 85025

== ENCOUNTER 2022-08-22 18:08 | Emergency (ER) | payer MEDICARE, OTHER ==
[~2022-08-22] VITALS: Ht 187 cm; Wt 210.0 kg
[~2022-08-22 18:08] MED LIST changes: -ACETAMINOPHEN 325 MG TABLET PO PRN; -ALPRAZolam 0.25 MG (XANAX) TAB PO PRN; -BISACODYL 10 MG SUPP (DULCOLAX) PR PRN; -CALCIUM CARBONATE 500 MG (TUMS) TAB.CHEW PO PRN; -DOCUSATE SODIUM 100 MG (COLACE) CAP PO PRN; -FLEET ENEMA ADULT 1 EA BTL PR PRN; -LACTULOSE SYRUP 10GM/15ML (ENULOSE) 30ML UDC PO PRN; +LEVO750T PO; -LEVO750T39 PO; -LOPERAMIDE 2 MG (IMODIUM) TABLET PO PRN; -MELATONIN 3 MG TABLET PO PRN; -ONDANSETRON 4 MG (ZOFRAN) ORAL DISSOLVE TAB PO PRN; -diphenhydrAMINE 25 MG TAB (BENADRYL) PO PRN; -guaiFENesin/CODEINE (ROBITUSSIN AC) 10ML UDC PO PRN
--- NOTE | 2022-08-22 18:12 | ED GI ---
General Chief Complaint: Abdominal/GI Problems Stated Complaint: BLOODY STOOL Source of Information: Patient History of Present Illness Date Seen by Provider: Aug 22, 2022 Time Seen by Provider: 18:11 Initial Comments 67-year-old male presenting with complaints of diarrhea since Monday. He has had a lot of gas and cramping. He has had some chills. He states that since 3:00 this afternoon he has had bloody stools x4. He states it was bright red blood. He was unsure if she had irritated hemorrhoids or if he might be having bleeding from his colon like a few years ago when he had diverticulitis. He has had some nausea but no vomiting. He has had mild intermittent cough. He did try taking some Imodium for the diarrhea. He states that his was having some similar GI issues but not as severe as his symptoms Timing/Duration: 4-5 Days Severity/Quality: Moderate, Cramping Location: Generalized Abdomen Activities at Onset: None Modifying Factors: Worsens With Defecating Associated Symptoms: No Back Pain, No Chest Pain, No Diaphoresis, No Fatigue, No Headache, No Heartburn, No Rash, No Shortness of Air, No Swelling/Mass in Abdomen, No Syncope, No Weakness Allergies and Home Medications Allergies Coded Allergies: No Known Drug Allergies (Unverified , 11/10/17) Patient Home Medication List Home Medication List Reviewed: Yes Allopurinol (Allopurinol) 100 Mg Tablet, 100 MG PO 1300, (Reported) Entered as Reported by: SLIME CONTEH on 04/27/22 1035 Aspirin (Aspirin) 81 Mg Tab.chew, 81 MG PO DAILY, (Reported) Entered as Reported by: SLIME CONTEH on 04/27/22 1035 Carvedilol (Carvedilol) 3.125 Mg Tablet, 3.125 MG PO BID, (Reported) Entered as Reported by: SLIME CONTEH on 04/27/22 1035 Clopidogrel Bisulfate (Clopidogrel) 75 Mg Tablet, 75 MG PO DAILY, (Reported) Entered as Reported by: SLIME CONTEH on 06/15/20 1257 Cyclobenzaprine HCl (Cyclobenzaprine HCl) 10 Mg Tablet, 10 MG PO HS PRN for MUSCLE SPASMS, (Reported) Entered as Reported by: SLIME CONTEH on 04/27/22 1035 Diazepam (Diazepam) 10 Mg Tablet, 10 MG PO HS PRN for MUSCLE SPASMS, ANXIETY Prescribed by: JUNIOR SHAW on 05/02/22617 Dicyclomine HCl (Dicyclomine HCl) 10 Mg Capsule, 10 MG PO Q6H PRN for abdominal pain/cramping Prescribed by: RACHEL TITUS on 08/22/222042 Gabapentin (Gabapentin) 100 Mg Capsule, 100 MG PO HS PRN for PAIN-BREAKTHROUGH, (Reported) Entered as Reported by: SLIME CONTEH on 04/27/22 103 Hydrocodone/Acetaminophen (Hydrocodone-Acetamin 5-325 mg) 5 Mg-325 Mg Tablet, 2 TAB PO Q8H PRN for PAIN-MODERATE (5-7) Prescribed by: JUNIOR SHAW on 05/02/22617 Hydrocortisone (Anusol-Hc) 2.5 % Cream..g., 30 GM RC UD Prescribed by: RACHEL TITUS on 08/22/222042 Ketoconazole (Ketoconazole) 2 % Shampoo, 1 APPLIC TP DAILY PRN for SCALP IRRITATION, (Reported) Entered as Reported by: SLIME CONTEH on 04/27/22 103 Multivitamin (Multivitamin) 1 Each Tablet, 1 EACH PO DAILY, (Reported) Entered as Reported by: SLIME CONTEH on 04/27/22 103 Nitroglycerin (Nitroglycerin) 0.4 Mg Tab.subl, 0.4 MG SL UD PRN for CHEST PAIN, (Reported) Entered as Reported by: KEREN CABRALES on 11/10/17 1213 Ondansetron (Ondansetron Odt) 4 Mg Tab.rapdis, 4 MG PO Q6H PRN for NAUSEA/VOMITING Prescribed by: RACHEL TITUS on 08/22/222052 Pantoprazole Sodium (Pantoprazole Sodium) 40 Mg Tablet.dr, 40 MG PO DAILY, (Reported) Entered as Reported by: SLIME CONTEH on 04/27/22 103 Psyllium Husk (Metamucil) 0.4 Gram Capsule, 0.4 GM PO DAILY, (Reported) Entered as Reported by: SLIME CONTEH on 04/27/22 103 Sacubitril/Valsartan (Entresto 24 mg-26 mg Tablet) 1 Each Tablet, 1 EACH PO BID, (Reported) Entered as Reported by: KEREN CABRALES on 11/10/17 1213 Simvastatin (Simvastatin) 20 Mg Tablet, 20 MG PO 1800, (Reported) Entered as Reported by: KEREN CABRALES on 11/10/17 1213 Tamsulosin HCl (Flomax) 0.4 Mg Cap, 0.4 MG PO 1200, (Reported) Entered as Reported by: SLIME CONTEH on 06/15/20 1257 Ubidecarenone (Co Q-10) 100 Mg Capsule, 100 MG PO DAILY, (Reported) Entered as Reported by: KEREN CABRALES on 11/10/17 1213 Review of Systems Review of Systems Constitutional: chills; No diaphoresis, No dizziness, No fever EENTM: No Symptoms Reported Respiratory: Cough (mild intermittent non-productive) Cardiovascular: Denies Chest Pain Gastrointestinal: See HPI Genitourinary: Denies Frequency, Denies Pain; Other (decreased urine output) Musculoskeletal: joint pain (chronic hip and leg pain from recent hip surgery and prior femur fracture ) Skin: no symptoms reported Psychiatric/Neurological: No Symptoms Reported Endocrine: No Symptoms Reported Hematologic/Lymphatic: No Symptoms Reported Past Uepubjh-Tavhfc-Dzosti Hx Patient Social History Tobacco Use?: No Immunizations Up To Date Tetanus Booster (TDap): Unknown PED Vaccines UTD: No First/Initial COVID19 Vaccinat: 2020 Second COVID19 Vaccination Truong: 2020 Third COVID19 Vaccination Date: 2020 Seasonal Allergies Seasonal Allergies: No Past Medical History Surgery/Hospitalization HX: CAD, Hip replacement, Femur fracture, Has only 1 kidney, Diverticulitis Surgeries: Yes (L kidney removed, L hip replaced, L femur ORIF, L ankle, triston filter,) Coronary Stent, Orthopedic, Renal Respiratory: No Currently Using CPAP: No Currently Using BIPAP: No Cardiac: Yes (stents, CHF) Heart Attack, High Cholesterol, Hypertension Neurological: Yes Neuropathy Reproductive Disorders: No Genitourinary: Yes (Left nephrectomy, renal cell carcinoma) Prostate Problems Gastrointestinal: Yes Diverticulosis, Gall Bladder Disease Musculoskeletal: Yes Arthritis Endocrine: No HEENT: No Cancer: Yes Prostate, Kidney What Type of Treatment Did You: Radiation, Surgical Intervention Psychosocial: No Integumentary: No Blood Disorders: Yes (hx DVT) Family Medical History Copd FH: COPD (chronic obstructive pulmonary disease) 19 FATHER FH: diverticulitis FH: renal cell carcinoma 19 MOTHER Cancer, COPD, Diabetes Physical Exam Vital Signs Vital Signs - First Documented 08/22/22 18:23 Temp 35.6 Pulse 89 Resp 18 B/P (MAP) 137/77 (97) Pulse Ox 97 O2 Delivery Room Air Capillary Refill : Height/Weight/BMI Height: 6'2.00" Weight: 254lbs. 0.0oz. [id number]; 32.40 BMI Method: General Appearance: WD/WN, no apparent distress HEENT: PERRL/EOMI, pharynx normal Neck: non-tender, full range of motion, supple, normal inspection Respiratory: chest non-tender, lungs clear, normal breath sounds, no respiratory distress, no accessory muscle use Cardiovascular: normal peripheral pulses, regular rate, rhythm Gastrointestinal: soft, no pulsatile mass, abnormal bowel sounds (hyperactive); No distended, No guarding, No rebound; tenderness (mild lower abdomen cramping with palpation) Rectal: normal rectal tone, blood streaked stool, heme positive stool, hemorrhoids Neurologic/Psychiatric: alert, oriented x 3 Skin: normal color, warm/dry Progress/Results/Core Measures Results/Orders Lab Results Laboratory Tests Test 08/22/22 18:15 08/22/22 18:50 Range/Units White Blood Count 8.5 4.3-11.0 10^3/uL Red Blood Count 6.38 H 4.30-5.52 10^6/uL Hemoglobin 18.5 H 13.3-17.7 g/dL Hematocrit 53 40-54 % Mean Corpuscular Volume 82 80-99 fL Mean Corpuscular Hemoglobin 29 25-34 pg Mean Corpuscular Hemoglobin Concent 35 32-36 g/dL Red Cell Distribution Width 14.6 H 10.0-14.5 % Platelet Count 232 130-400 10^3/uL Mean Platelet Volume 9.6 9.0-12.2 fL Immature Granulocyte % (Auto) 0 % Neutrophils (%) (Auto) 60 42-75 % Lymphocytes (%) (Auto) 26 12-44 % Monocytes (%) (Auto) 12 0-12 % Eosinophils (%) (Auto) 2 0-10 % Basophils (%) (Auto) 1 0-10 % Neutrophils # (Auto) 5.1 1.8-7.8 10^3/uL Lymphocytes # (Auto) 2.2 1.0-4.0 10^3/uL Monocytes # (Auto) 1.0 0.0-1.0 10^3/uL Eosinophils # (Auto) 0.2 0.0-0.3 10^3/uL Basophils # (Auto) 0.1 0.0-0.1 10^3/uL Immature Granulocyte # (Auto) 0.0 0.0-0.1 10^3/uL Prothrombin Time 13.0 12.2-14.7 SEC INR Comment 1.0 0.8-1.4 Activated Partial Thromboplast Time 29 24-35 SEC Sodium Level 135 135-145 MMOL/L Potassium Level 4.2 3.6-5.0 MMOL/L Chloride Level 100 98-107 MMOL/L Carbon Dioxide Level 20 L 21-32 MMOL/L Anion Gap 15 H 5-14 MMOL/L Blood Urea Nitrogen 14 7-18 MG/DL Creatinine 0.97 0.60-1.30 MG/DL Estimat Glomerular Filtration Rate 85 BUN/Creatinine Ratio 14 Glucose Level 90 70-105 MG/DL Calcium Level 9.3 8.5-10.1 MG/DL Corrected Calcium 9.1 8.5-10.1 MG/DL Total Bilirubin 0.5 0.1-1.0 MG/DL Aspartate Amino Transf (AST/SGOT) 26 5-34 U/L Alanine Aminotransferase (ALT/SGPT) 20 0-55 U/L Alkaline Phosphatase 96 40-136 U/L Total Protein 7.1 6.4-8.2 GM/DL Albumin 4.2 3.2-4.5 GM/DL Lipase 26 8-78 U/L Urine Color YELLOW Urine Clarity CLEAR Urine pH 6.0 5-9 Urine Specific [place] <=1.005 1.016-1.022 Urine Protein NEGATIVE NEGATIVE Urine Glucose (UA) NEGATIVE NEGATIVE Urine Ketones NEGATIVE NEGATIVE Urine Nitrite NEGATIVE NEGATIVE Urine Bilirubin NEGATIVE NEGATIVE Urine Urobilinogen 0.2 < = 1.0 MG/DL Urine Leukocyte Esterase NEGATIVE NEGATIVE Urine RBC (Auto) NEGATIVE NEGATIVE Urine RBC NONE /HPF Urine WBC NONE /HPF Urine Squamous Epithelial Cells RARE /HPF Urine Crystals NONE /LPF Urine Bacteria NEGATIVE /HPF Urine Casts NONE /LPF Urine Mucus NEGATIVE /LPF Urine Culture Indicated NO My Orders Orders - RACHEL TITUS MD Comprehensive Metabolic Panel (08/22/22 18:31) Lipase (08/22/22 18:31) Ua Culture If Indicated (08/22/22 18:31) Ed Iv/Invasive Line Start (08/22/22 18:31) Cbc With Automated Diff (08/22/22 18:31) Stool Culture (08/22/22 18:31) Fecal Wbc (08/22/22 18:31) C Difficile Ag + Toxin A/B. (08/22/22 18:31) Isolation Central Supply Req (08/22/22 18:31) Protime With Inr (08/22/22 18:) Partial Thromboplastin Time (08/22/22 18:) Fecal Occult Bedside (08/22/22 18:) Ns Iv 1000 Ml (Sodium Chloride 0.9%) (08/22/22 18:33) Ondansetron Injection (Zofran Injectio (08/22/22 18:33) Dicyclomine Injection (Bentyl Injection) (08/22/22 18:33) Iohexol Injection (Omnipaque 300 Mg/Ml 1 (08/22/22 19:15) Sodium Chloride Flush (Catheter Flush Sy (08/22/22 19:15) Received Contrast (Hold Metformin- Contr (08/22/22 19:15) Ns (Ivpb) (Sodium Chloride 0.9% Ivpb Bag (08/22/22 19:15) Ct Abdomen/Pelvis Wo (08/22/22 18:31) Rx-Dicyclomine Capsule (Rx-Bentyl Capsul (08/22/22 20:38) Rx-Ondansetron Po (Rx-Zofran Po) (08/22/22 21:00) Rx-Ondansetron Po (Rx-Zofran Po) (08/22/22 20:53) Vital Signs/I&O 08/22/22 18:23 Temp 35.6 Pulse 89 Resp 18 B/P (MAP) 137/77 (97) Pulse Ox 97 O2 Delivery Room Air Progress Progress Note #1: Progress Note check labs and urine as well as stool cultures if he has diarrhea here. BOAZ shows hemorrhoids are present but he has no active bleeding on exam. Stool is brown colored with streaks of blood. Positive hemoccult. Given NS 1 L IVF bolus for hydration. Bentyl 20 mg IM for pain/cramping. Zofran 4 mg IV for nausea/vomiting. Differential diagnosis includes diverticulitis, bleeding hemorrhoid, colon mass, gastroenteritis, colitis, upper GI bleed Progress Note #2: Progress Note CBC, Chemistry and coags were not showing any acute significant abnormality. His CT scan did not show signs of diverticulitis or inflammation of the colon. He had no signs of bowel obstruction. There is no mass of the colon. As he does have hemorrhoids that are irritated that could be the bright red blood. There is currently no signs for diverticulitis. He has not been able to provide diarrhea specimen for testing. He denies any recent antibiotics or travel. This may be more of a viral gastroenteritis. Continue with supportive care and use anal steroids to help with the hemorrhoids. check back with clinic for continued concerns. He does report improved symptoms with treatment in ED Diagnostic Imaging Diagonstic Imaging: CT Plain Films/CT/US/NM/MRI: abdomen, pelvis Comments NAME: [facility] REC#: [id number] PT STATUS: REG ER : 1955 PHYSICIAN: RACHEL TITUS MD ADMIT DATE: 08/22/22/ER FS Draft Date of Exam:08/22/22 CT ABDOMEN/PELVIS WO EXAMINATION: CT abdomen and pelvis without contrast. TECHNIQUE: Multiple contiguous axial images were obtained through the abdomen and pelvis without the use of intravenous contrast. All CT scans use one or more of the following dose optimizing techniques: automated exposure control, MA and/or KvP adjustment based on patient size and exam type or iterative reconstruction. HISTORY: Diarrhea and abdominal pain COMPARISON: 06/14/2020 FINDINGS: Limited views of the lower thorax show mild dependent atelectasis. Coronary arteries are calcified. The liver is normal without focal lesion. There is no biliary ductal dilation. Gallbladder is surgically absent. Pancreas is normal. Spleen is normal. Adrenal glands are normal. There has been left nephrectomy. Right kidney is normal. There is no hydronephrosis. Urinary bladder is normal. There are radiation therapy markers in the prostate gland. Bowel is normal in caliber without obstruction or inflammation. Inferior vena cava filter is present. 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 No free fluid or air. No abdominal or pelvic lymphadenopathy. Aorta is normal in caliber without aneurysm. There are no suspicious osseus lesions. There is an unchanged sclerotic lesion in left ilium, likely benign bone island given stability. There are bilateral hip arthroplasties. IMPRESSION: 1. No acute abnormality in the abdomen or pelvis. Dictated on workstation # [id number] Dict: 08/22/222002 Trans: 08/22/222014 [facility] [id number] Interpreted by: AMAURY PELAYO MD Electronically signed by: Reviewed: Reviewed by Me Departure Impression Primary Impression: Diarrhea Qualified Codes: R19.7 - Diarrhea, unspecified Additional Impressions: Abdominal gas pain External hemorrhoid, bleeding Disposition: HOME, SELF-CARE Condition: Stable Departure-Patient Inst. Decision time for Depature: 20:39 Referrals: ELICIA MORALES MD (PCP) Primary Care Physician Patient Instructions: Hemorrhoids ED, Diarrhea, Adult ED Add. Discharge Instructions: Your labs and CT scan all look stable and do not show signs of diverticulitis. You do have irritated hemorrhoids that can be causing bleeding since you have been having diarrhea. Use anal steroid to help with hemorrhoid irritation and bleeding. Use Bentyl (Dicyclomine) to help with gas and cramping. Continue with fluids and imodium if needed to help with diarrhea. Check back with your regular doctor for continued symptoms or if not improving. All discharge instructions reviewed with patient and/or family. Voiced understanding. Scripts Ondansetron (Ondansetron Odt) 4 Mg Tab.rapdis 4 MG PO Q6H PRN for NAUSEA/VOMITING for 3 Days, #12 TAB 0 Refills Prov: RACHEL TITUS MD 08/22/22 Dicyclomine HCl (Dicyclomine HCl) 10 Mg Capsule 10 MG PO Q6H PRN for abdominal pain/cramping for 7 Days, #28 CAP 0 Refills Prov: RACHEL TITUS MD 08/22/22 Hydrocortisone (Anusol-Hc) 2.5 % Cream..g. 30 GM RC UD for Hemorrhoids for 5 Days, #30 GM 0 Refills Apply thin layer to rectum and hemorrhoids three times a day Prov: RACHEL TITUS MD 08/22/22 RACHEL TITUS MD Aug 22, 2022 18:12
[2022-08-22] MEDS ORDERED: ONDANSETRON 4 MG/2 ML (SDV) Z0FRAN IVP STA (18:33)
[2022-08-22] MEDS ORDERED: NS IV 1000 ML 1,000 ML IV STA (18:33)
[2022-08-22] MEDS ORDERED: DICYCLOMINE 10 MG/ML (BENTYL) 2 ML AMP IM STA (18:33)
[2022-08-22 18:40] LABS: BASOPHILS # (AUTO) 0.1 10^3/uL (0.0-0.1); BASOPHILS % (AUTO) 1 % (0-10); EOSINOPHILS # (AUTO) 0.2 10^3/uL (0.0-0.3); EOSINOPHILS % (AUTO) 2 % (0-10); HEMATOCRIT 53 % (40-54); HEMOGLOBIN 18.5 g/dL (13.3-17.7); LYMPHOCYTES # (AUTO) 2.2 10^3/uL (1.0-4.0); LYMPHOCYTES % (AUTO) 26 % (12-44); MEAN CORPUSCULAR HEMOGLOBIN 29 pg (25-34); MEAN CORPUSCULAR HGB CONC 35 g/dL (32-36); MEAN CORPUSCULAR VOLUME 82 fL (80-99); MEAN PLATELET VOLUME 9.6 fL (9.0-12.2); MONOCYTES % (AUTO) 12 % (0-12); NEUTROPHILS # (AUTO) 5.1 10^3/uL (1.8-7.8); NEUTROPHILS % (AUTO) 60 % (42-75); PLATELET COUNT 232 10^3/uL (130-400); WHITE BLOOD COUNT 8.5 10^3/uL (4.3-11.0)
[2022-08-22 18:57] LABS: POTASSIUM 4.2 MMOL/L (3.6-5.0)
[2022-08-22 18:58] LABS: ALBUMIN 4.2 GM/DL (3.2-4.5); BILIRUBIN,TOTAL 0.5 MG/DL (0.1-1.0); CALCIUM 9.3 MG/DL (8.5-10.1); CREATININE SERUM 0.97 MG/DL (0.60-1.30); TOTAL PROTEIN 7.1 GM/DL (6.4-8.2)
[2022-08-22] MEDS ORDERED: IOHEXOL 300 MG/ML 100 ML (OMNIPAQUE 300) VIAL IV ONE (19:15)
[2022-08-22] MEDS ORDERED: CATHETER FLUSH 10 ML SYR IV PRN (19:15)
[2022-08-22] MEDS ORDERED: NS 100 ML (IVPB) BAG IV ONE (19:15)
[2022-08-22] MEDS ORDERED: HOLD METFORMIN - RECEIVED CONTRAST 20 ML VIAL IV SCH (19:15)
[2022-08-22 19:16] LABS: BILIRUBIN,URINE NEGATIVE (NEGATIVE); CLARITY,URINE CLEAR; COLOR,URINE YELLOW; GLUCOSE, URINE (UA) NEGATIVE (NEGATIVE); KETONES,URINE NEGATIVE (NEGATIVE); LEUKOCYTE ESTERASE ,URINE NEGATIVE (NEGATIVE); NITRITE,URINE NEGATIVE (NEGATIVE); PROTEIN,URINE NEGATIVE (NEGATIVE)
[2022-08-22 19:22] LABS: BACTERIA,URINE NEGATIVE /HPF
[2022-08-22 19:23] LABS: SQUAMOUS EPITHELIAL CELL,UR RARE /HPF
--- NOTE | 2022-08-22 20:16 | Diagnostic Imaging Report ---
EXAMINATION: CT abdomen and pelvis without contrast. TECHNIQUE: Multiple contiguous axial images were obtained through the abdomen and pelvis without the use of intravenous contrast. All CT scans use one or more of the following dose optimizing techniques: automated exposure control, MA and/or KvP adjustment based on patient size and exam type or iterative reconstruction. HISTORY: Diarrhea and abdominal pain COMPARISON: 06/14/2020 FINDINGS: Limited views of the lower thorax show mild dependent atelectasis. Coronary arteries are calcified. The liver is normal without focal lesion. There is no biliary ductal dilation. Gallbladder is surgically absent. Pancreas is normal. Spleen is normal. Adrenal glands are normal. There has been left nephrectomy. Right kidney is normal. There is no hydronephrosis. Urinary bladder is normal. There are radiation therapy markers in the prostate gland. Bowel is normal in caliber without obstruction or inflammation. Inferior vena cava filter is present. 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 No free fluid or air. No abdominal or pelvic lymphadenopathy. Aorta is normal in caliber without aneurysm. There are no suspicious osseus lesions. There is an unchanged sclerotic lesion in left ilium, likely benign bone island given stability. There are bilateral hip arthroplasties. IMPRESSION: 1. No acute abnormality in the abdomen or pelvis. Dictated by: Dictated on workstation # [id number]
[2022-08-22] MEDS ORDERED: RX-DICYCLOMINE 10 MG (BENTYL) CAP PPK#4 PO STA (20:38)
[2022-08-22] MEDS ORDERED: DICY10CA12 PO (20:43)
[2022-08-22] MEDS ORDERED: HYDR30CR71 RC (20:43)
[2022-08-22] MEDS ORDERED: RX-ONDANSETRON 4 MG ODT (ZOFRAN) PPK #4 ONE (20:53)
[2022-08-22] MEDS ORDERED: ONDA4TAB11 PO (20:53)
[2022-08-22] MEDS ORDERED: RX-ONDANSETRON 4 MG ODT (ZOFRAN) PPK #4 PO PRN (21:00)
[2022-08-22 21:01] VITALS: BP 111/69
== END 2022-08-22 21:04 | disposition home or self-care (01) ==
LOC: EDUNIT# 18:08 → ER FS 18:10
DX: K64.4 Residual hemorrhoidal skin tags (principal); R19.7 Diarrhea, unspecified; R14.1 Gas pain; R11.2 Nausea with vomiting, unspecified
CPT/HCPCS: 36415; 74176; 80053; 81000; 83690; 85025; 85610; 85730

== ENCOUNTER 2023-04-24 13:33 | Emergency (ER) | payer MEDICARE, OTHER ==
[~2023-04-24] VITALS: Ht 185 cm; Wt 112.0 kg
[~2023-04-24 13:33] MED LIST changes: +DICY10CA12 PO; +HYDR30CR71 RC; +ONDA4TAB11 PO
[2023-04-24] MEDS ORDERED: TETANUS,DIPTH,PERTUSS P/F (BOOSTRIX) 0.5 ML VIAL IM ONE (14:00)
[2023-04-24 14:19] VITALS: BP 116/77
--- NOTE | 2023-04-24 14:33 | Diagnostic Imaging Report ---
INDICATION: Fall with left shoulder pain. TECHNIQUE: AP, oblique, and transscapular views of the left shoulder were obtained. FINDINGS: There is an acute fracture of the distal portion of the clavicle extending to the AC joint. The glenohumeral joint shows degenerative change but no acute finding. IMPRESSION: Acute fracture of the distal clavicle extending to the AC joint. Underlying degenerative changes. Dictated by: Dictated on workstation # [id number]
--- NOTE | 2023-04-24 14:42 | Diagnostic Imaging Report ---
PROCEDURE: CT head and CT cervical spine without contrast. TECHNIQUE: Multiple contiguous axial images were obtained through the brain and cervical spine without the use of intravenous contrast. Sagittal and coronal reformations through the cervical spine were then performed. Auto Exposure Controls were utilized during the CT exam to meet ALARA standards for radiation dose reduction. INDICATION: Headache and neck pain after trauma. COMPARISON: None. FINDINGS: No acute intracranial hemorrhage. The miguel-white matter differentiation is preserved. The ventricles and cortical sulci are normal. No intracranial mass or fluid collection. No midline shift or mass effect. The subarachnoid cisterns are patent. The sella is normal. There is straightening of the cervical lordosis. Mild multilevel facet arthritis. Moderate to severe multilevel disc height loss. No acute fracture or dislocation. No lytic or sclerotic bone lesion. [id number] multilevel spinal canal and neural foraminal narrowing due to uncovertebral and facet arthritis and disc osteophyte complex. Included views of the lung apices demonstrates no significant abnormality. IMPRESSION: No acute intracranial hemorrhage. No large vascular territory french-white loss. No intracranial mass, midline shift, or hydrocephalus. No acute fracture or dislocation of the cervical spine. Dictated by: Dictated on workstation # [id number]
--- NOTE | 2023-04-24 15:00 | ED Trauma-Multisystem ---
General Chief Complaint: Head/Cervical Problems Stated Complaint: FALL LEFT EYEBROW LAC/LEFT SHOULDER PAIN Nursing Triage Note: Patient has presented to ER with cc of head injury and left shoulder pain from a fall. Source of Information: Patient, RN Notes Reviewed Exam Limitations: No Limitations History of Present Illness Date Seen by Provider: Apr 24, 2023 Time Seen by Provider: 13:45 Initial Comments 67-year-old male patient presented POV with complaining of a fall on wet grass area and injury to his forehead and left shoulder. Patient stated he did not lose his consciousness but felt a pop in his shoulder. Patient denies headache and rated his shoulder pain as a mild pain. Patient using crutches because of chronic left lower extremity weakness and was able to walk with his crutches to ER. Patient currently taking Plavix. Patient is not up-to-date with tetanus immunization. Occurred: Just Prior to Arrival Allergies and Home Medications Allergies Coded Allergies: No Known Drug Allergies (Unverified , 11/10/17) Patient Home Medication List Home Medication List Reviewed: Yes Allopurinol (Allopurinol) 100 Mg Tablet, 100 MG PO 1300, (Reported) Entered as Reported by: SLIME CONTEH on 04/27/22 1035 Aspirin (Aspirin) 81 Mg Tab.chew, 81 MG PO DAILY, (Reported) Entered as Reported by: SLIME CONTEH on 04/27/22 1035 Carvedilol (Carvedilol) 3.125 Mg Tablet, 3.125 MG PO BID, (Reported) Entered as Reported by: SLIME CONTEH on 04/27/22 1035 Clopidogrel Bisulfate (Clopidogrel) 75 Mg Tablet, 75 MG PO DAILY, (Reported) Entered as Reported by: SLIME CONTEH on 06/15/20 1257 Cyclobenzaprine HCl (Cyclobenzaprine HCl) 10 Mg Tablet, 10 MG PO HS PRN for MUSCLE SPASMS, (Reported) Entered as Reported by: SLIME CONTHE on 04/27/22 1035 Diazepam (Diazepam) 10 Mg Tablet, 10 MG PO HS PRN for MUSCLE SPASMS, ANXIETY Prescribed by: JUNIOR SHAW on 05/02/22 0618 Dicyclomine HCl (Dicyclomine HCl) 10 Mg Capsule, 10 MG PO Q6H PRN for abdominal pain/cramping Prescribed by: RACHEL TITUS on 08/22/222042 Gabapentin (Gabapentin) 100 Mg Capsule, 100 MG PO HS PRN for PAIN-BREAKTHROUGH, (Reported) Entered as Reported by: SLIME CONTEH on 04/27/22 103 Hydrocodone/Acetaminophen (Hydrocodone-Acetamin 5-325 mg) 5 Mg-325 Mg Tablet, 2 TAB PO Q8H PRN for PAIN-MODERATE (5-7) Prescribed by: JUNIOR SHAW on 05/02/22617 Hydrocortisone (Anusol-Hc) 2.5 % Cream..g., 30 GM RC UD Prescribed by: RACHEL TITUS on 08/22/222042 Ketoconazole (Ketoconazole) 2 % Shampoo, 1 APPLIC TP DAILY PRN for SCALP IRRITATION, (Reported) Entered as Reported by: SLIME CONTEH on 04/27/221034 Multivitamin (Multivitamin) 1 Each Tablet, 1 EACH PO DAILY, (Reported) Entered as Reported by: SLIME CONTEH on 04/27/221034 Nitroglycerin (Nitroglycerin) 0.4 Mg Tab.subl, 0.4 MG SL UD PRN for CHEST PAIN, (Reported) Entered as Reported by: KEREN CABRALES on 11/10/171212 Ondansetron (Ondansetron Odt) 4 Mg Tab.rapdis, 4 MG PO Q6H PRN for NAUSEA/VOMITING Prescribed by: RACHEL TITUS on 08/22/222052 Pantoprazole Sodium (Pantoprazole Sodium) 40 Mg Tablet.dr, 40 MG PO DAILY, (Reported) Entered as Reported by: SLIME CONTEH on 04/27/22 103 Psyllium Husk (Metamucil) 0.4 Gram Capsule, 0.4 GM PO DAILY, (Reported) Entered as Reported by: SLIME CONTEH on 04/27/22 103 Sacubitril/Valsartan (Entresto 24 mg-26 mg Tablet) 1 Each Tablet, 1 EACH PO BID, (Reported) Entered as Reported by: KEREN CABRALES on 11/10/17 121 Simvastatin (Simvastatin) 20 Mg Tablet, 20 MG PO 1800, (Reported) Entered as Reported by: KEREN CABRALES on 11/10/17 121 Tamsulosin HCl (Flomax) 0.4 Mg Cap, 0.4 MG PO 1200, (Reported) Entered as Reported by: SLIME CONTEH on 06/15/20 1257 Ubidecarenone (Co Q-10) 100 Mg Capsule, 100 MG PO DAILY, (Reported) Entered as Reported by: KEREN CABRALES on 11/10/17 1213 Review of Systems Review of Systems Constitutional: see HPI Eyes: See HPI Ears: See HPI Nose: See HPI Mouth: See HPI Throat: See HPI Respiratory: see HPI Cardiovascular: See HPI Gastrointestinal: see HPI Genitourinary: see HPI Musculoskeletal: see HPI Skin: see HPI Psychiatric/Neurological: See HPI All Other Systems Reviewed Negative Unless Noted: Yes Past Sgezrtd-Bjtcob-Ssywxl Hx Patient Social History Tobacco Use?: No Use of E-Cig and/or Vaping dev: No Substance use?: No Alcohol Use?: No Pt feels they are or have been: No Immunizations Up To Date Tetanus Booster (TDap): Unknown PED Vaccines UTD: No First/Initial COVID19 Vaccinat: 2020 Second COVID19 Vaccination Truong: 2020 Third COVID19 Vaccination Date: 2020 Seasonal Allergies Seasonal Allergies: No Past Medical History Surgery/Hospitalization HX: CAD, Hip replacement, Femur fracture, Has only 1 kidney, Diverticulitis Surgeries: Yes (L kidney removed, L hip replaced, L femur ORIF, L ankle, triston filter,) Coronary Stent, Orthopedic, Renal Respiratory: No Currently Using CPAP: No Currently Using BIPAP: No Cardiac: Yes (stents, CHF) Heart Attack, High Cholesterol, Hypertension Neurological: Yes Neuropathy Reproductive Disorders: No Genitourinary: Yes (Left nephrectomy, renal cell carcinoma) Prostate Problems Gastrointestinal: Yes Diverticulosis, Gall Bladder Disease Musculoskeletal: Yes Arthritis Endocrine: No HEENT: No Cancer: Yes Prostate, Kidney What Type of Treatment Did You: Radiation, Surgical Intervention Psychosocial: No Integumentary: No Blood Disorders: Yes (hx DVT) Family Medical History Copd FH: COPD (chronic obstructive pulmonary disease) 19 FATHER FH: diverticulitis FH: renal cell carcinoma 19 MOTHER Cancer, COPD, Diabetes Physical Exam Vital Signs Vital Signs - First Documented 04/24/23 14:19 Temp 36.3 Pulse 81 B/P (MAP) 116/77 (90) Pulse Ox 95 O2 Delivery Room Air Height, Weight, BMI Height: 6'2.00" Weight: 254lbs. 0.0oz. 115.030481zh; 32.00 BMI Method: General Appearance: WD/WN, Mild Distress Head: Lacerations (1 cm linear laceration above left eyebrow) Eyes: Bilateral Eye Normal Inspection, Bilateral Eye PERRL Ears, Nose, Throat: Hearing Grossly Normal, No Evidence of ENT Injury Neck: Full Range of Motion, Normal Inspection Cardiovascular: Regular Rate, Rhythm, No Edema Respiratory: Chest Non Tender, Lungs Clear, Normal Breath Sounds Gastrointestinal: Normal Bowel Sounds, No Organomegaly, Non Tender Back: Other (Large hematoma on posterior upper shoulder area) Extremity: No Pedal Edema, Swelling (Large hematoma of the posterior left shoulder, tenderness of AC joint area) Neurologic/Psychiatric: Alert, Oriented x3, No Motor/Sensory Deficits Skin: Normal Color, Warm/Dry Procedures/Interventions Wound Location: Face Wound Length (cm): 1 Wound's Depth, Shape: superficial, linear Wound Explored: clean Betadine Prep?: No Wound Debrided: none Other Closure Supply: Steri Strip 1/2", Wound Adhesive Sterile Dressing Applied?: No Progress/Results/Core Measures Results/Orders My Orders Orders - NAKIA LEE MD Ct Head/Cervical Spine Wo (04/24/23 13:57) Shoulder 3 View Left (04/24/23 13:57) Dipht,Pertuss(Acell),Tet Adult (Boostrix (04/24/23 14:00) Medications Given in ED Current Medications Medications Dose Ordered Sig/Lily Route Start Time Stop Time Status Last Admin Dose Admin Diphtheria/ Tetanus/Acell Pertussis 0.5 ml ONCE ONCE IM 04/24/23 14:00 04/24/23 14:01 DC 04/24/23 14:13 0.5 ML Vital Signs/I&O 04/24/23 14:19 Temp 36.3 Pulse 81 B/P (MAP) 116/77 (90) Pulse Ox 95 O2 Delivery Room Air Blood Pressure Mean: 90 Progress Progress Note : Progress Note 67-year-old male patient with history of chronic left lower extremity weakness with using crutches and currently on Plavix had a fall at home with injury to left face and left shoulder. Patient had small laceration of left forehead that was repaired with Dermabond and Steri-Strip. Patient had left posterior shoulder large hematoma and erythema and tenderness of distal clavicular close to AC joint with fracture of distal clavicular. Patient treated with shoulder sling and advised to follow-up with Rory Jaquez orthopedic nurse practitioner in 1 or 2 days. Patient has hydrocodone at home and advised to continue home pain medication and apply ice on the affected area. CT head and cervical spine was unremarkable and patient advised to follow-up with his primary care physician or return to ER as needed. Patient is not able to use his crutches anymore because of not able to using his left upper extremity and prescription for wheelchair was given. Diagnostic Imaging Diagonstic Imaging: CT Plain Films/CT/US/NM/MRI: c-spine, head Comments CT head and cervical spine interpreted by radiologist and reviewed by me and showed: [facility], [place] NAME: JO CUTLER [facility] REC#: [id number] PT STATUS: REG ER : 1955 PHYSICIAN: NAKIA LEE MD ADMIT DATE: 04/24/23/ER FS Signed Date of Exam:04/24/23 CT HEAD/CERVICAL SPINE WO PROCEDURE: CT head and CT cervical spine without contrast. TECHNIQUE: Multiple contiguous axial images were obtained through the brain and cervical spine without the use of intravenous contrast. Sagittal and coronal reformations through the cervical spine were then performed. Auto Exposure Controls were utilized during the CT exam to meet ALARA standards for radiation dose reduction. INDICATION: Headache and neck pain after trauma. COMPARISON: None. FINDINGS: No acute intracranial hemorrhage. The miguel-white matter differentiation is preserved. The ventricles and cortical sulci are normal. No intracranial mass or fluid collection. No midline shift or mass effect. The subarachnoid cisterns are patent. The sella is normal. There is straightening of the cervical lordosis. Mild multilevel facet arthritis. Moderate to severe multilevel disc height loss. No acute fracture or dislocation. No lytic or sclerotic bone lesion. Aapf-lc-[id number] multilevel spinal canal and neural foraminal narrowing due to uncovertebral and facet arthritis and disc osteophyte complex. Included views of the lung apices demonstrates no significant abnormality. IMPRESSION: No acute intracranial hemorrhage. No large vascular territory french-white loss. No intracranial mass, midline shift, or hydrocephalus. No acute fracture or dislocation of the cervical spine. Dictated by: Dictated on workstation # [id number] Dict: 04/24/23 1432 Trans: 04/24/23 1441 [facility] [id number] Interpreted by: SAUL GOMEZ DO Electronically signed by: SAUL GOMEZ DO 04/24/23 1441 Left shoulder x-ray interpreted by me and showed distal clavicular fracture. Departure Impression Primary Impression: Closed left clavicular fracture Additional Impressions: Forehead laceration Traumatic hematoma of left shoulder Fall at home Disposition: HOME, SELF-CARE Condition: Improved Departure-Patient Inst. Decision time for Depature: 15:15 Referrals: ELICIA MORALES MD (PCP/Family) Primary Care Physician Patient Instructions: Clavicle fracture, Laceration Repair With Glue ED, Minor Head Injury (DC), Preventing falls in adults Add. Discharge Instructions: Continue home hydrocodone as needed for pain Follow-up with Rory Jaquez orthopedic nurse practitioner in 2 or 3 days Return to ER as needed Apply ice on the affected area Use wheelchair for ambulation for your chronic left leg weakness All discharge instructions reviewed with patient and/or family. Voiced understanding. NAKIA LEE MD Apr 24, 2023 15:00
== END 2023-04-24 15:21 | disposition home or self-care (01) ==
LOC: EDUNIT# 13:33 → ER FS 13:35
DX: S42.002A Fracture of unspecified part of left clavicle, initial encounter for closed fracture (principal); S01.112A Laceration without foreign body of left eyelid and periocular area, initial encounter; Z79.02 Long term (current) use of antithrombotics/antiplatelets; Z23 Encounter for immunization; W19.XXXA Unspecified fall, initial encounter; Y92.009 Unspecified place in unspecified non-institutional (private) residence as the place of occurrence of the external cause
CPT/HCPCS: 70450; 72125; 73030; 90715

== ENCOUNTER → 2023-06-26 | Outpatient (CLI) | payer MEDICARE, OTHER | LOC: CARD 13:55 | PROVIDERS: ATTEND Family Medicine | DX: I50.22 Chronic systolic (congestive) heart failure (principal) | CPT/HCPCS: 93306 ==